=== PATIENT | male | born 1970 | race Caucasian/White ===

== ENCOUNTER 2020-07-18 10:46 | Outpatient (CLI) | payer OTHER, SELFPAY | END 2020-07-18 10:47 | disposition home or self-care (01) | LOC: ANHCOVIDVC 10:46 | PROVIDERS: PCP Internal Medicine | DX: Z23 Encounter for immunization (principal) | CPT/HCPCS: 0001A; 91300 ==

== ENCOUNTER 2020-08-08 10:45 | Outpatient (CLI) | payer OTHER, SELFPAY | END 2020-08-08 10:46 | disposition home or self-care (01) | LOC: ANHCOVIDVC 10:45 | PROVIDERS: PCP Internal Medicine | DX: Z23 Encounter for immunization (principal) | CPT/HCPCS: 0002A; 91300 ==

== ENCOUNTER 2020-10-01 13:53 | Outpatient (CLI) | payer OTHER, SELFPAY ==
--- NOTE | ~2020-10-01 | XR_ITS ---
XR hip LT min 2V DATE: 10/01/2020 14:19 INDICATION: Left hip pain. Rheumatoid arthritis. TECHNIQUE: AP, lateral and crosstable lateral views of left hip COMPARISON: None FINDINGS: No fracture, dislocation, avascular necrosis or bone destruction. Left hip joint space appe ars well preserved. IMPRESSION: Negative Reviewed, dictated and finalized at location B. IMPRESSION: Negative
== END 2020-10-01 13:54 | disposition home or self-care (01) ==
PROVIDERS: PCP Internal Medicine; Visit Provider Internal Medicine
DX: M25.552 Pain in left hip (principal)
CPT/HCPCS: 73502

== ENCOUNTER 2020-11-06 09:13 | Outpatient (CLI) | payer OTHER, SELFPAY ==
--- NOTE | ~2020-11-06 | XR_ITS ---
EXAMINATION: XR thoracic spine min 4V DATE: 11/06/2020 09:31 INDICATION: Thoracic back pain TECHNIQUE: Anteroposterior, lateral in neutral, flexion and extension, and bilateral oblique views of the thoracic spine were obtained. COMPARISON: 07/10/2018 FINDINGS: There are changes of interval posterior fusion from T8 through T11. Bone alignment is jhoan l. There is no fracture. There is mild loss of intervertebral disc space height throughout the thorac ic spine. There are bridging osteophytes at multiple levels in the spine, consistent with diffuse idi opathic skeletal hyperostosis (DISH). IMPRESSION: 1. Mild thoracic spondylosis without acute findings. Reviewed, dictated and finalized at location A.
== END 2020-11-06 09:14 | disposition home or self-care (01) ==
LOC: ANHIMG 09:15
PROVIDERS: PCP Internal Medicine; Visit Provider Internal Medicine Rheumatology
DX: M47.814 Spondylosis without myelopathy or radiculopathy, thoracic region (principal)
CPT/HCPCS: 72074

== ENCOUNTER 2021-03-26 11:26 | Outpatient (CLI) | payer OTHER, SELFPAY ==
--- NOTE | 2021-04-13 13:34 | WPDHOMESLEEP ---
Sleep Study - Home Unattended Date of Study: 03/26/21 <Reshma Chamberlain DO - Last Filed: 04/13/21 13:50> Ordering Provider: Glenys Alcazar MD <Reshma Chamberlain, DO - Last Filed: 04/13/21 13:50> Interpreting Provider: Reshma Chamberlain DO <Reshma Chamberlain, DO - Last Filed: 04/13/21 13:50> Home Sleep Study Type: Watch PAT <Reshma Chamberlain, DO - Last Filed: 04/13/21 13:50> Height: 1.83 m <Reshma Chamberlain DO - Last Filed: 04/13/21 13:50> Weight: 99.79 kg <Reshma Chamberlain DO - Last Filed: 04/13/21 13:50> Body Mass Index: 29.8 <Reshma Chamberlain DO - Last Filed: 04/13/21 13:50> Neck Circumference (inches): 17.5 <Reshma Chamberlain DO - Last Filed: 04/13/21 13:50> [place]: 7 <Reshma Chamberlain DO - Last Filed: 04/13/21 13:50> Reason for Sleep Study Witnessed apneic events while sleeping <Reshma Chamberlain DO - Last Filed: 04/13/21 13:50> Sleep History The patient is a 50-year-old male with seropositive rheumatoid arthritis, diffuse idiopathic skeletal hyperostosis, bipolar type 2, ADHD, anxiety, as, hypertension, diabetes, hyperlipidemia and previously diagnosed GEOFF that had a home study ordered by his physician due to witnessed apneic episodes. The the patient frequently awakens from sleep short of breath. He denies waking at night with heartburn, belching or cough. He constantly snores and is frequently loud enough others complain. He occasionally has trouble sleeping when he has a cold. He rarely wakes up gasping for throughout the night. He frequently has breathing problems at night observed by others. He occasionally sweats excessively at night. He denies heart palpitations throughout the night. He frequently falls asleep during the day but never while driving. He denies his cataplexy. He rarely has trouble at school or work due to sleepiness. He rarely feels unable to move when waking up her falling asleep. He rarely experiences vivid dreamlike scenes upon awakening falling asleep. He rarely has nightmares. He occasionally remembers his dreams. He constantly has thoughts racing through his mind. He frequently feels sad or depressed. He constantly has anxiety. He rarely notices parts of his body jerk. He rarely kicks during the night. He frequently experiences crawling and aching feelings in his legs as well as leg pain during the night. He constantly grinds his teeth during sleep and never awakens with jaw pain in the morning. He is constantly bothered by pain during the day and awakened by pain during the night. He constantly wakes up feeling stiff in the morning with sore and achy muscles. He goes to bed at 8:30 p.m. on weekdays and 9:30 p.m. on weekends. It takes him 15-20 minutes to fall asleep. He wakes up at 6-8 times throughout the night. When he awakens, he will try to go back to sleep. He can fall back asleep within 10-15 minutes. He wakes up at 6:00 a.m. on weekdays and 7:00 a.m. on weekends. He typically gets 3-5 hours of sleep per night he will stay in bed for 5-10 minutes after awakening in the morning. He currently lives with his and 2 kids. His work does not require split chills the rotating shifts. He does not consume any caffeinated beverages within 2 hours of bedtime. He does not engage in physical exercise before bedtime. He will read watch television before falling asleep. He does take naps in the afternoon and the evening but they are not refreshing. He does consume caffeinated tea throughout the day. He denies tobacco and alcohol use. he states that he does use recreational drugs but the type of drug was listed. <Reshma Chamberlain DO - Last Filed: 04/13/21 13:50> [facility] Past Medical History Medical History: Medical History Anxiety Arthritis Asthma Attention deficit disorder Back pain Bipolar affective, depress, part remis
[2021-04-13 13:50] VITALS: BMI 29.8
== END 2021-03-30 12:19 | disposition home or self-care (01) ==
LOC: ANHCSM 11:26
PROVIDERS: PCP Internal Medicine; Visit Provider Internal Medicine Rheumatology
DX: G47.9 Sleep disorder, unspecified (principal); G47.33 Obstructive sleep apnea (adult) (pediatric)
CPT/HCPCS: 95800

== ENCOUNTER 2021-04-23 07:40 | Outpatient (CLI) | payer OTHER, SELFPAY ==
--- NOTE | 2021-05-12 14:20 | WPDSLEEPSTUD ---
Sleep Study Ordering Provider: Jonnathan Diaz DO <Reshma Chamberlain DO - Last Filed: 05/12/21 14:42> Interpreting Physician: Reshma Chamberlain DO <Reshma Chamberlain DO - Last Filed: 05/12/21 14:42> Reason for Sleep Study The patient was previously diagnosed with GEOFF and has been on CPAP in the past. He had a home study done on March 26, 2021 that showed an AHI 1.3 and an RDI of 7.7. The patient was recommended to have an in-lab study for further evaluation. <Reshma Chamberlain DO - Last Filed: 05/12/21 14:42> Sleep History The patient is a 50-year-old male with seropositive rheumatoid arthritis, diffuse idiopathic skeletal hyperostosis, bipolar type 2, ADHD, anxiety, hypertension, diabetes, hyperlipidemia and previously diagnosed GEOFF that had a home study ordered by his physician due to witnessed apneic episodes. The the patient frequently awakens from sleep short of breath. He denies waking at night with heartburn, belching or cough. He constantly snores and is frequently loud enough others complain. He occasionally has trouble sleeping when he has a cold. He rarely wakes up gasping for throughout the night. He frequently has breathing problems at night observed by others. He occasionally sweats excessively at night. He denies heart palpitations throughout the night. He frequently falls asleep during the day but never while driving. He denies his cataplexy. He rarely has trouble at school or work due to sleepiness. He rarely feels unable to move when waking up her falling asleep. He rarely experiences vivid dreamlike scenes upon awakening falling asleep. He rarely has nightmares. He occasionally remembers his dreams. He constantly has thoughts racing through his mind. He frequently feels sad or depressed. He constantly has anxiety. He rarely notices parts of his body jerk. He rarely kicks during the night. He frequently experiences crawling and aching feelings in his legs as well as leg pain during the night. He constantly grinds his teeth during sleep and never awakens with jaw pain in the morning. He is constantly bothered by pain during the day and awakened by pain during the night. He constantly wakes up feeling stiff in the morning with sore and achy muscles. He goes to bed at 8:30 p.m. on weekdays and 9:30 p.m. on weekends. It takes him 15-20 minutes to fall asleep. He wakes up at 6-8 times throughout the night. When he awakens, he will try to go back to sleep. He can fall back asleep within 10-15 minutes. He wakes up at 6:00 a.m. on weekdays and 7:00 a.m. on weekends. He typically gets 3-5 hours of sleep per night he will stay in bed for 5-10 minutes after awakening in the morning. He currently lives with his and 2 kids. His work does not require split chills the rotating shifts. He does not consume any caffeinated beverages within 2 hours of bedtime. He does not engage in physical exercise before bedtime. He will read watch television before falling asleep. He does take naps in the afternoon and the evening but they are not refreshing. He does consume caffeinated tea throughout the day. He denies tobacco and alcohol use. he states that he does use recreational drugs but the type of drug was listed. <Reshma Chamberlain DO - Last Filed: 05/12/21 14:42> [facility] Past Medical History Medical History: Medical History Anxiety Arthritis Asthma Attention deficit disorder Back pain Bipolar affective, depress, part remis Bone cyst Depression Diabetes Diabetes Essential (primary) hypertension Fibromyalgia Generalized osteoarthritis of multiple sites GERD (gastroesophageal reflux disease) H/O tuberculosis H/O: HTN (hypertension) Hyperlipidemia associated with type 2 diabetes mellitus Inflammatory arthritis Irritable bowel syndrome [place] use Metabolic syndrome Mild persistent asthma without complication Krystina
== END 2021-04-24 06:04 | disposition home or self-care (01) ==
LOC: ANHCSM 07:40
PROVIDERS: PCP Internal Medicine; Visit Provider Internal Medicine
DX: G47.33 Obstructive sleep apnea (adult) (pediatric) (principal); G25.81 Restless legs syndrome
CPT/HCPCS: 95810

== ENCOUNTER 2021-06-08 00:13 | Day surgery (SDC) | payer OTHER, SELFPAY ==
[2021-05-26 13:12] VITALS: BMI 29.9
[2021-06-08 11:40] VITALS: BP 117/89; PULSE 112; RESP 18; TEMP 37.1; O2SAT 98; BMI 30.7
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
[2021-06-08] MEDS: LACTATED RINGERS 1,000 ML 150 ML IV CONT (12:00)
[2021-06-08 12:01] LABS: Glucose Point of Care 120 mg/dl (65-105)
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
[2021-06-08 12:46] VITALS: BP 141/93; PULSE 92; RESP 19; O2SAT 98
[2021-06-08 12:56] VITALS: BP 107/73; PULSE 82; RESP 24; O2SAT 99
[2021-06-08 13:06] VITALS: BP 110/76; PULSE 82; RESP 22; O2SAT 100
== END 2021-06-08 13:14 | disposition home or self-care (01) ==
PROVIDERS: PCP Internal Medicine; Visit Provider Internal Medicine Gastroenterology
PROC: 0DJD8ZZ Inspection of Lower Intestinal Tract, Via Natural or Artificial Opening Endoscopic (ICD-10-PCS; CPT 45378; principal; 2021-06-08 13:00)
DX: Z12.11 Encounter for screening for malignant neoplasm of colon (principal); D12.3 Benign neoplasm of transverse colon; K57.30 Diverticulosis of large intestine without perforation or abscess without bleeding; K64.8 Other hemorrhoids; F41.9 Anxiety disorder, unspecified; M19.90 Unspecified osteoarthritis, unspecified site; F31.9 Bipolar disorder, unspecified; E11.9 Type 2 diabetes mellitus without complications; F41.8 Other specified anxiety disorders; I10 Essential (primary) hypertension; M79.7 Fibromyalgia; K21.9 Gastro-esophageal reflux disease without esophagitis; J45.30 Mild persistent asthma, uncomplicated; G47.33 Obstructive sleep apnea (adult) (pediatric); G25.81 Restless legs syndrome; Z98.1 Arthrodesis status; F12.90 Cannabis use, unspecified, uncomplicated; Z79.84 Long term (current) use of oral hypoglycemic drugs; E66.9 Obesity, unspecified; Z68.30 Body mass index [BMI] 30.0-30.9, adult
CPT/HCPCS: 45385; 82948; 88305; J2704; J7120

== ENCOUNTER 2021-08-05 09:50 | Outpatient (CLI) | payer OTHER, SELFPAY ==
--- NOTE | ~2021-08-05 | XR_ITS ---
EXAMINATION: XR knee RT 3V DATE: 08/05/2021 10:10 INDICATION: Right knee pain TECHNIQUE: Three views of the right knee were obtained. COMPARISON: 08/22/2017 FINDINGS: Alignment is normal. No fracture or osteochondral lesion. There is mild tricompartmental os teoarthritis characterized by tiny marginal osteophytes. There is a small knee joint effusion. Soft t issues are unremarkable. IMPRESSION: 1. Osteoarthritis and small joint effusion without acute osseous abnormality. Reviewed, dictated and finalized at location B.
== END 2021-08-05 09:51 | disposition home or self-care (01) ==
LOC: ANHIMG 09:54
PROVIDERS: PCP Internal Medicine; Visit Provider Physician Assistant
DX: M17.11 Unilateral primary osteoarthritis, right knee (principal)
CPT/HCPCS: 73562

== ENCOUNTER 2022-01-12 00:38 | Day surgery (SDC) | payer OTHER, SELFPAY ==
[2021-12-30 09:07] VITALS: BMI 29.6
[2022-01-12 09:50] VITALS: BP 114/75; PULSE 79; RESP 20; TEMP 36.5; O2SAT 99
[2022-01-12] MEDS: LACTATED RINGERS 1,000 ML 150 ML IV CONT (09:54)
[2022-01-12 10:08] LABS: Glucose Point of Care 96 mg/dl (65-105)
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
[2022-01-12 11:43] VITALS: BP 107/72; PULSE 72; RESP 22; O2SAT 99
[2022-01-12 11:53] VITALS: BP 114/71; PULSE 76; RESP 21; O2SAT 96
[2022-01-12 12:03] VITALS: BP 109/76; PULSE 73; RESP 25; O2SAT 97
== END 2022-01-12 12:27 | disposition home or self-care (01) ==
PROVIDERS: PCP Internal Medicine; Visit Provider Internal Medicine Gastroenterology
PROC: 0DJ08ZZ Inspection of Upper Intestinal Tract, Via Natural or Artificial Opening Endoscopic (ICD-10-PCS; CPT 43235; principal; 2022-01-12 10:30)
DX: R11.0 Nausea (principal); R63.4 Abnormal weight loss; Z79.84 Long term (current) use of oral hypoglycemic drugs; M19.90 Unspecified osteoarthritis, unspecified site; F41.9 Anxiety disorder, unspecified; J45.909 Unspecified asthma, uncomplicated; F98.8 Other specified behavioral and emotional disorders with onset usually occurring in childhood and adolescence; I10 Essential (primary) hypertension; M79.7 Fibromyalgia; K58.9 Irritable bowel syndrome, unspecified; F31.9 Bipolar disorder, unspecified; E11.9 Type 2 diabetes mellitus without complications; J45.20 Mild intermittent asthma, uncomplicated; G47.33 Obstructive sleep apnea (adult) (pediatric); K21.9 Gastro-esophageal reflux disease without esophagitis; E78.5 Hyperlipidemia, unspecified; Z90.49 Acquired absence of other specified parts of digestive tract; F12.90 Cannabis use, unspecified, uncomplicated; E66.9 Obesity, unspecified; Z68.30 Body mass index [BMI] 30.0-30.9, adult; Z86.16 Personal history of COVID-19; G25.81 Restless legs syndrome
CPT/HCPCS: 43239; 82948; 87081; J2704; J7120

== ENCOUNTER → 2023-03-02 14:11 | Outpatient (CLI) | payer OTHER, SELFPAY ==
--- NOTE | ~2023-03-02 | MR_ITS ---
EXAMINATION: MR knee RT wo con DATE: 03/02/2023 14:44 INDICATION: 6-7 months of anterior right knee pain. TECHNIQUE: Magnetic resonance imaging (MRI) of the right knee was performed without intravenous contr ast. Sequences included coronal PD-weighted FSE, coronal PD-weighted FS FSE, sagittal T2-weighted FS E, sagittal PD-weighted FS FSE and axial PD weighted fat saturated FSE. COMPARISON: None. FINDINGS: Medial compartment: Complex tear at the lateral side of the posterior horn of the medial meniscus. There is suggestion of an additional longitudinal horizontal tear plane at the meniscal body. There is chondral surface reg ularity along the anterior weightbearing medial femoral condyle. There is linear fluid signal consist ent with a blisterlike delamination at the anteriormost weightbearing medial femoral condyle with pro minent underlying subarticular edema-like signal change. Lateral compartment: Lateral meniscus is normal. Chondral ulceration along the medial side of the lateral tibial plateau a long the intercondylar eminence with additional small focus of underlying subarticular edema-like sig nal change. Remaining cartilage the lateral compartment is normal. Patellofemoral compartment: Resolved hemorrhagic deep chondral fissuring with underlying edema-like and tiny cystlike changes ext ending across the central aspect of the lateral patellar facet. Small region of partial-thickness cho ndral ulceration and deep chondral fissuring at the inferolateral aspect of the medial trochlea with underlying cortical irregularity and minimal subarticular edema-like signal change. Ligaments and tendons: Anterior and posterior cruciate ligaments are normal. The medial collateral ligament and fibular moreno ateral ligament complex are normal. The extensor mechanism is normal. The visualized medial and later al hamstring tendons as well as the iliotibial band are normal. Fluid: Minimal right knee joint effusion at the suprapatellar pouch. Small Carey's cyst with extension of an additional small component of the cyst cyst distally along the semimembranosus tendon. No loose oste ochondral bodies identified. Osseous/other: Bone alignment is normal. No fracture or pathologic marrow replacing process. No fracture or patholog ic marrow replacing process. IMPRESSION: 1. Complex tear at the lateral posterior horn of the medial meniscus with suggestion of additional ho rizontal tear plane at the meniscal body. 2. Mild tricompartmental osteoarthritis with regions of high-grade chondromalacia in all 3 compartmen ts and small region of blisterlike delamination at the bone chondral interface at the anteriormost we ightbearing medial femoral condyle. 3. Small Carey's cyst. Reviewed, dictated and finalized at location A. IMPRESSION: 1. Complex tear at the lateral posterior horn of the medial meniscus with sugge stion of additional horizontal tear plane at the meniscal body. 2. Mild tricompartmental osteoarthritis with regions of high-grade chondromalac ia in all 3 compartments and small region of blisterlike delamination at the blanca ne chondral interface at the anteriormost weightbearing medial femoral condyle. 3. Small Carey's cyst.
== END ==
PROVIDERS: PCP Orthopaedic Surgery; Visit Provider Orthopaedic Surgery
DX: S83.271A Complex tear of lateral meniscus, current injury, right knee, initial encounter (principal); M17.11 Unilateral primary osteoarthritis, right knee; M94.261 Chondromalacia, right knee; M71.21 Synovial cyst of popliteal space [Baker], right knee
CPT/HCPCS: 73721

== ENCOUNTER 2023-04-06 08:49 | Outpatient (CLI) | payer OTHER, SELFPAY ==
--- NOTE | 2023-04-06 08:58 | ECG_ITS ---
Measurements Intervals [place] Rate: 78 P: 31 MI: 157 QRS: -14 QRSD: 105 T: 30 QT: 346 QTc: 396 Interpretive Statements SINUS RHYTHM BORDERLINE R WAVE PROGRESSION, ANTERIOR LEADS BASELINE ARTIFACT- I, III, AVR, AVL, AVF BORDERLINE ECG NO PREVIOUS ECG AVAILABLE FOR COMPARISON Electronically Signed On 04-06-2023 10:38:45 [employer] ENGINEER by Андрей Al D.O.
[2023-04-06 11:01] LABS: Lithium 0.4 mmol/L (0.6-1.2)
[2023-04-06 11:10] LABS: Valproic Acid 20.1 ug/mL (50-120)
== END 2023-04-06 08:50 | disposition home or self-care (01) ==
LOC: ANHSURGERY 08:52
PROVIDERS: Anesthesiology; PCP Internal Medicine; Visit Provider Orthopaedic Surgery
DX: E11.9 Type 2 diabetes mellitus without complications (principal); F31.75 Bipolar disorder, in partial remission, most recent episode depressed; Z79.899 Other long term (current) drug therapy; Z01.818 Encounter for other preprocedural examination; R94.31 Abnormal electrocardiogram [ECG] [EKG]
CPT/HCPCS: 36415; 80164; 80178; 93005

== ENCOUNTER 2023-04-13 01:00 | Day surgery (SDC) | payer OTHER, SELFPAY ==
[2023-04-04 12:56] VITALS: BMI 32.8
--- NOTE | 2023-04-04 13:01 | PC.NURSE ---
Report to the Outpatient Waiting Room, entrance under the green pavilion located off [facility], at time 10:00 on date 04/13/23. Planned Procedure Time: 12:00. Time changes happen often and if your time is changed the preop area will call you the afternoon before. - You and your visitor will be asked to self-screen and do not enter if you have any COVID symptoms. - A mask is optional within the hospital at this time. Patients may have clear liquids (water, carbonated beverages, clear teas, apple juice) until 3 hours prior to surgery with a maximum of 20 ounces. - No food from midnight until time of surgery Take the following medications with a SIP of water the morning of surgery: LITHIUM, SERTRALINE DO NOT STOP ANY OF YOUR OTHER PRESCRIPTION MEDICATIONS PRIOR TO SURGERY ?EXCEPT THE FOLLOWING Medications to discontinue per physician: VITAMINS/SUPPLEMENTS Date to take last dose: 04/09/23 Please no make-up, nail chinese, hairspray, perfume, deodorant, or body powder the day of surgery. No jewelry (including any body piercings) or valuables the day of surgery, leave them at home. Please take a shower or bath the night before, or the morning of, surgery with an antibacterial soap. Wear comfortable, loose fitting clothing. - Jewelry must be removed prior to entering the operating room. Rings and piercings that are not removed may be cut off. - The hospital will not accept responsibility for valuables. - Please leave all valuables, including medications, at home the day of surgery. If you are going home after surgery, a licensed compressed air pile driver operator must drive you home. - NO public transportation without another adult if you receive anesthesia. - We recommend that an adult stay with you for 24 hours following discharge. - We also recommend that you do not drive, make important decision, drink alcoholic beverages, or take any drugs that were not prescribed by your health care provider for at least 24 hours after your discharge time. Follow any additional instructions given to you from your surgeon. If you or anyone in your household have experienced Covid symptoms in the past week, please notify your surgeon or the nurse liaison at the phone number below for possible testing. Telephone instructions given to PT - SUSANNE SANTANA and asked if any additional questions and then verbalized understanding. Patient advised to call surgeon office or pre surgery nurse liaison [phone] if any additional questions.
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
--- NOTE | 2023-04-13 07:13 | WPDHPUPDATE1 ---
History and Physical Update Update Date/Time: 04/13/23 07:13 History and Physical has been reviewed, including an updated exam of the patient. There are NO changes in the patient's condition. Risks, benefits, and alternatives have been discussed and questions answered. Patient agrees to proceed with procedure.
[2023-04-13] MEDS: ACETAMINOPHEN 500 MG TABLET 1000 MG PO (08:01)
[2023-04-13] MEDS: CELECOXIB 200 MG CAPSULE PO (08:01)
[2023-04-13] MEDS: LACTATED RINGERS 1,000 ML 30 ML IV CONT (08:15)
[2023-04-13 08:20] VITALS: BP 118/68; PULSE 81; RESP 16; TEMP 36.3; O2SAT 98
[2023-04-13 08:20] LABS: Glucose Point of Care 101 mg/dl (65-105)
[2023-04-13] MEDS: ceFAZolin 2 GM/D5W 50 ML 2 GM/50 ML BAG IVPB (09:34)
[2023-04-13] MEDS: BUPivacaine HCL 0.5% 10 ML AMP 30 ML INFILTRATE (09:58)
[2023-04-13 10:33] VITALS: BP 129/87; PULSE 75; RESP 10; TEMP 36.7; O2SAT 100
--- NOTE | 2023-04-13 10:35 | W.PM.PROC2 ---
Procedure Note - Detailed Date of Procedure 04/13/23 Pre-op Diagnosis right medial meniscus tear Post-op Diagnosis Same Procedure Performed RIGHT KNEE SCOPE PARTIAL MEDIAL MENISCECTOMY, ABRASION ARTHROPLASTY/MICRO FRACTURE AND MAJOR SYNOVECTOMY Surgeon Lalo Irizarry MD Anesthesia General Description of Procedure PATIENT WAS TAKEN TO THE OR. RIGHT LEG WAS PREPPED AND DRAPED STERILE. TROCARS WERE PLACED IN THE USUAL FASHION. CAMERA WAS INTRODUCED. THERE WAS CHONDROMALACIA TO THE PATELLA FEMORAL JOINT. THERE WAS A LOT OF SYNOVITIS IN ALL COMPARTMENTS. THE MEDIAL COMPARTMENT SHOWED CHONDROMALACIA TO THE MEDIAL FEMORAL CONDYLE. A SHAVER WAS USED TO PREFORM A CHONDROPLASTY. THERE WAS AN AREA OF FULL THICKNESS DEFECT.. AND ABRASION ARTHROPLASTY/MICRO FRACTURE TECHNIQUE WS PREFORMED AND THERE WAS GOOD BLEEDING BONE COMING FROM THE SITES. THERE WAS A COMPLEX MEDIAL MENISCUS TEAR TO THE MENISCUS ROOT AND POSTERIOR HORN. THIS WAS RESECTED TO A SMOOTHE BASE . THE ACL WAS INTACT. THE LATERAL MENISCUS WAS NOT TORN. THE LATERAL COMPARTMENT HAD GRADE NO CHONDROMALACIA. A SYNOVECTOMY WAS PREFORMED. THE PATELLO FEMORAL JOINT UNDERWENT CHONDROPLASTY. THERE WAS GRADE 2 CHONDROMALACIA IN PART OF THE PATELLA. SYNOVECTOMY WAS PREFORMED IN THE SUPERIOR MEDIAL COMPARTMENT. THE WOUNDS WERE APPROXIMATED WITH 4.0 NYLON. STERILE DRESSING WAS APPLIED. PATIENT WAS EXTUBATED. Estimated Blood Loss 10 Complications No immediate complications Condition Stable Disposition PACU
[2023-04-13 10:47] VITALS: BP 126/76; PULSE 77; RESP 15; O2SAT 100
[2023-04-13 10:53] LABS: Glucose Point of Care 101 mg/dl (65-105)
[2023-04-13 11:00] VITALS: BP 125/80; PULSE 74; RESP 15; O2SAT 98
[2023-04-13 11:10] VITALS: BP 117/77; PULSE 79; RESP 18
[2023-04-13 11:40] VITALS: BP 126/77; PULSE 75; RESP 18
== END 2023-04-13 12:00 | disposition home or self-care (01) ==
PROVIDERS: PCP Internal Medicine; Visit Provider Orthopaedic Surgery
PROC: (CPT 29870; principal; 2023-04-13 09:00)
DX: S83.231A Complex tear of medial meniscus, current injury, right knee, initial encounter (principal); M94.261 Chondromalacia, right knee; M65.9 Synovitis and tenosynovitis, unspecified; I10 Essential (primary) hypertension; E11.9 Type 2 diabetes mellitus without complications; F41.9 Anxiety disorder, unspecified; K21.9 Gastro-esophageal reflux disease without esophagitis; E78.5 Hyperlipidemia, unspecified; K58.9 Irritable bowel syndrome, unspecified; J45.909 Unspecified asthma, uncomplicated; F98.8 Other specified behavioral and emotional disorders with onset usually occurring in childhood and adolescence; F31.75 Bipolar disorder, in partial remission, most recent episode depressed; E88.810 Metabolic syndrome; G47.33 Obstructive sleep apnea (adult) (pediatric); F43.12 Post-traumatic stress disorder, chronic; F99 Mental disorder, not otherwise specified; G25.81 Restless legs syndrome; F12.90 Cannabis use, unspecified, uncomplicated; E66.9 Obesity, unspecified; Z68.31 Body mass index [BMI] 31.0-31.9, adult; Z90.49 Acquired absence of other specified parts of digestive tract; Z79.85 Long-term (current) use of injectable non-insulin antidiabetic drugs; Z79.84 Long term (current) use of oral hypoglycemic drugs; Z79.51 Long term (current) use of inhaled steroids; Z79.891 Long term (current) use of opiate analgesic; Z82.49 Family history of ischemic heart disease and other diseases of the circulatory system; X58.XXXA Exposure to other specified factors, initial encounter
CPT/HCPCS: 29881; 29879; 29876; 36415; 80164; 80178; 82948; 93005; A9270; J0690; J1100; J1170; J2250; J2405; J2704; J3010; J7120

== ENCOUNTER 2023-08-18 13:09 | Outpatient (CLI) | payer BC, SELFPAY ==
--- NOTE | ~2023-08-18 | XR_ITS ---
EXAMINATION: XR TMJ BI DATE: 08/18/2023 13:39 INDICATION: Pain of the bilateral temporomandibular joints. TECHNIQUE: 4 views of the temporomandibular joints including open-mouth and closed mouth views were o btained. COMPARISON: None. FINDINGS: Bone alignment is normal. There is normal anterior translation of mandibular condyles in th e open-mouth position. The mandibular condyles are normal in morphology. Joint spaces are normal. IMPRESSION: 1. Normal temporomandibular joints. Reviewed, dictated and finalized at location A.
--- NOTE | ~2023-08-18 | XR_ITS ---
XR cervical spine 4-5V DATE: 08/18/2023 13:39 INDICATION: Neck pain, base of skull. No injury. TECHNIQUE: Flexion and extension and neutral lateral views. AP and open-mouth views. COMPARISON: None FINDINGS: C1 and C2 are normally aligned and the odontoid process is intact. No fracture or dislocation or locked facet or prevertebral soft tissue swelling. No instability on fl exion or extension is evident. Cervical interspaces are relatively preserved. There is mild degenerative spurring of the vertebral b odies and mild spurring at the mid and lower cervical uncovertebral joints. IMPRESSION: Mild degenerative change Reviewed, dictated and finalized at location B. IMPRESSION: Mild degenerative change
== END 2023-08-18 13:10 | disposition home or self-care (01) ==
LOC: ANHIMG 13:13
PROVIDERS: PCP Physician Assistant; Visit Provider Physician Assistant
DX: M26.609 Unspecified temporomandibular joint disorder, unspecified side (principal); M54.2 Cervicalgia
CPT/HCPCS: 70330; 72050

== ENCOUNTER 2024-02-23 11:32 | Outpatient (CLI) | payer BC, SELFPAY ==
--- NOTE | ~2024-02-23 | XR_ITS ---
Clinical Indication: Abnormal weight loss PA and lateral views of the chest: Comparison: 07/10/2018 Findings: The lungs are clear, without evidence of focal consolidation or pleural effusion. Cardiome diastinal silhouette is within normal limits. Presumed vagal neurostimulator present. Thoracolumbar s roberta fixation hardware present. Impression: Clear lungs. Additional findings, as above. Reviewed, dictated and finalized at location . Impression: Clear lungs. Additional findings, as above.
== END 2024-02-23 11:33 | disposition home or self-care (01) ==
LOC: ANHIMG 11:34
PROVIDERS: PCP Internal Medicine; Visit Provider Internal Medicine
DX: R63.4 Abnormal weight loss (principal); Z98.1 Arthrodesis status; Z96.82 Presence of neurostimulator
CPT/HCPCS: 71046

== ENCOUNTER 2024-10-04 13:01 | Outpatient (CLI) | payer BC, SELFPAY ==
--- NOTE | ~2024-10-04 | XR_ITS ---
EXAMINATION: XR chest 2V 10/04/2024 13:12 INDICATION: Osteoarthritis. Long-term drug therapy. PROCEDURE: 2 view chest COMPARISON: Comparison to multiple prior studies sequentially, with oldest reviewed study dated 05/2009. FINDINGS: The lungs are clear. The cardiomediastinal silhouette is within normal limits. There are no pleural effusions. There is no pneumothorax suspected. Posterior spinal fusion present in the mi d and lower thoracic spine. There is diffuse idiopathic skeletal hyperostosis (DISH) of the thoracic spine. IMPRESSION: 1: NO ACUTE CARDIOPULMONARY DISEASE. Reviewed, dictated and finalized at location B.
== END 2024-10-04 13:02 | disposition home or self-care (01) ==
LOC: MICIMG 13:03
PROVIDERS: PCP Internal Medicine; Visit Provider Internal Medicine Rheumatology
DX: M19.90 Unspecified osteoarthritis, unspecified site (principal); Z79.899 Other long term (current) drug therapy
CPT/HCPCS: 71046

== ENCOUNTER 2025-02-07 10:22 | Outpatient (CLI) | payer BC, SELFPAY ==
--- NOTE | 2025-02-07 10:36 | ECG_ITS ---
Test Date: 2025-02-07 10:51:02 Measurements Intervals [place] Rate: 69 P: 55 WV: 187 QRS: -14 QRSD: 117 T: 54 QT: 374 QTc: 403 Interpretive Statements SINUS RHYTHM NORMAL ELECTROCARDIOGRAM No previous ECG available for comparison Electronically Signed On 02-07-2025 16:32:23 CDT by Sharad Laurent M.D.
[2025-02-07 10:40] LABS: Hematocrit 46.6 % (42.0-52.0); Hemoglobin 15.5 g/dL (14.0-18.0); Immature Granulocyte Percent A 0.4 % (0-0.5); Lymphocytes Absolute Auto 1.43 K/mm3 (0.9-3.2); Mean Corpuscular HGB Conc 33.3 g/dl (32-36); Mean Corpuscular Hemoglobin 30.5 pg (26-34); Mean Corpuscular Volume 91.6 fl (80-100); Nucleated Red Blood Cells Absolute Auto 0.000 K/mm3 (0.0-0.012); Nucleated Red Blood Cells Perc 0.0 % (0.0-0.2); Platelet Count Result 257 k/mm3 (150-375); Red Blood Count 5.09 M/mm3 (4.6-6.20); White Blood Count 8.0 K/mm3 (4.5-10.0)
[2025-02-07 10:48] LABS: Add Urine Microscopic? YES; Appearance Urine Clear (Clear); Glucose Urine UA Negative (Negative); Leukocyte Esterase Ur Trace LEU/UL (Negative); Nitrate Urine Negative (Negative); Non Pathogenic Casts 0-2; Specific Grav Ur 1.006 (1.001-1.035)
[2025-02-07 11:05] LABS: Anion Gap 7 mmol/L (4-12); Blood Urea Nitrogen 14 mg/dL (9-20); Calcium 9.3 mg/dL (8.4-10.2); Carbon Dioxide 25 mmol/L (22-30); Chloride 104 mmol/L (98-107); Estimated Glomerular Filt Rate > 60; Glucose 83 mg/dL (65-110); Potassium 4.3 mmol/L (3.4-5.0); Sodium 136 mmol/L (137-145)
== END 2025-02-07 10:23 | disposition home or self-care (01) ==
LOC: ANHLAB 10:23
PROVIDERS: PCP Internal Medicine; Visit Provider Orthopaedic Surgery
DX: I10 Essential (primary) hypertension (principal); R53.83 Other fatigue; E11.9 Type 2 diabetes mellitus without complications; E11.69 Type 2 diabetes mellitus with other specified complication; E78.5 Hyperlipidemia, unspecified
CPT/HCPCS: 36415; 80048; 81001; 85025; 93005

== ENCOUNTER 2025-04-08 09:48 | Outpatient (CLI) | payer BC, SELFPAY ==
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
--- OUTSIDE RECORDS SUMMARY | 2025-04-08 11:11 | XMS_ITS | Encounter Summary ---
Author Organization [facility] Address [address] [place] [address] Phone Care Team Providers Care Repair Cameraman Name Role Phone Renee Trujillo MD Primary Care Provider [phone] Jonnathan Diaz MD Primary Care Provider [phone] Dave Power DO Primary Care Provider [phone] Encounter Details Date Type Department Care Team (Latest Contact Info) Description 12/28/2018 Orders Only [facility] Scanning, Provider Social History Tobacco Use Types Packs/Day Years Used Date Smoking Tobacco: Never Alcohol Use Standard Drinks/Week Comments No 0 (1 standard drink = 0.6 oz pur e alcohol) Sex and Gender Information Value Date Recorded Sex Assigned at Not on file 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 Gender Identity Not on file Sexual Orientation Not on file documented as of this encounter Functional Status * BP Location Answer Date of Assessment Author Left arm 12/29/2018 9:41 AM Vanessa Mcclellan CMA * BP Location Answer Date of Assessment Author Left arm 12/29/2018 9:41 AM Vanessa Mcclellan CMA documented as of this encounter Plan of Treatment Not on file documented as of this encounter Procedures Procedure Name Priority Date/Time Associated Diagnosis Comments SLEEP LAB/STUDY - RESULT 12/28/2018 documented in this encounter Results * SLEEP LAB/STUDY - RESULT (12/28/2018) us Provider Scanning Final Result documented in this encounter Visit Diagnoses Not on filedocumented in this encounter Care Teams Repair Cameraman Relationship Specialty Start Date End Date Renee Trujillo MD PCP - General Family Medicine 10/02/18 10/04/23 Jonnathan Diaz MD [address] [place] [address] PCP - General Internal Medicine 10/05/23 08/07/24 Dave Power DO [address] [place] [address] PCP - General Internal Medicine 08/08/24 documented as of this encounter
--- OUTSIDE RECORDS SUMMARY | 2025-04-08 11:11 | XMS_ITS | Encounter Summary ---
Author Organization [facility] Address [address] [facility] [place] [address] Care Team Providers Care Poiser Name Role Phone JannetMatthewDave Opal STRONG Primary Care Provider [phone] Encounter Details Date Type Department Care Team (Late st Contact Info) Description 03/29/2025 Orders Only [facility] - Rheumatology [address] [place] [address] Giselle Ryan MD [address] [place] [address] Undifferentiated inflammatory arthritis; Encounter for long-term (current) use of high-risk medication; Encounter for therapeutic drug monitoring Social History Tobacco Use Types Packs/Day Years Used Date Smoking Tobacco: Never Smokeless Tobacco: Never Alcohol Use Standard Drinks/Week Comments Never 0 (1 standard drink = 0.6 oz pur e alcohol) AUDIT-C Answer Date Recorded Frequency of Alcohol Consumption Never 04/04/2019 Average Number of Drinks Not on file 019 Frequency of Binge Drinking Not on file 03/17 Sex and Gender Information Value Date Recorded Sex Assigned at Male 12/08/2021 9:46 AM CDT 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 Answer Date of Assessment Author No 05/15/2019 5:18 PM Lizeth Centeno RN * Is person blind or have serious difficulty seeing? Answer Date of Assessment Author No 05/15/2019 5:18 PM Lizeth Centeno RN * Does person have serious difficulty walking/climbing stairs? Answer Date of Assessment Author No 05/15/2019 5:18 PM Lizeth Centeno RN * Does person have difficulty dressing/bathing? Answer Date of Assessment Author No 05/15/2019 5:18 PM Lizeth Centeno RN * Does person have difficulty doing errands alone? Answer Date of Assessment Author No 05/15/2019 5:18 PM Lizeth Centeno RN documented as of this encounter Mental Status * Does person have difficulty concentrating/remembering/making decisions? Answer Entry Date Author No 05/15/2019 5:18 PM Lizeth Centeno RN documented in this encounter Plan of Treatment Upcoming Encounters Date Type Department Care Team (Late st Contact Info) Description 08/05/2025 2:40 PM CDT Office Visit [facility] - [facility]ology [facility] [place] [address] Giselle Ryan MD [facility] [place] [id number] documented as of this encounter Visit Diagnoses Diagnosis Undifferentiated inflammatory arthritis Unspecified inflammatory polyarthropathy Encounter for long-term (current) use of high-risk medication Encounter for long-term (current) use of other medications Encounter for therapeutic drug monitoring documented in this encounter Additional Health Concerns Infection Onset Date Last Indicated Resolved Time Prion Disease Rule-Out 07/04/2023 07/04/2023 documented as of this encounter Care Teams Poiser Relationship Specialty Start Date End Date Dave Power DO [address] [place] [address] PCP - General Internal Medicine 05/14/24 documented as of this encounter
--- OUTSIDE RECORDS SUMMARY | 2025-04-08 11:11 | XMS_ITS | Clinical Summary ---
Author Organization [facility] Address [address] [place] [address] Care Team Providers Care Tool Crib Lead Name Role Phone Jonnathan Diaz MD Primary Care Provider [phone] Social History Tobacco Use Types Packs/Day Years Used Date Smoking Tobacco: Never Assessed Sex and Gender Information Value Date Recorded Sex Assigned at Not on file Legal Sex Male 2:36 PM CDT Gender Identity Not on file Sexual Orientation Not on file Plan of Treatment Health Maintenance Due Date Last Done Comments Colorectal Cancer Screening Colonoscopy (10 Years) 1971 Annual Physical 1974 Hepatitis C 1989 DTaP, Tdap and Td Vaccines ( 1 - Tdap) 1990 Hepatitis B Vaccines (1 of 3 - 19+ 3-dose series) 1990 Pneumococcal Vaccine: 50+ Years (1 of 1 - PCV) 2021 Zoster Vaccines (1 of 2) 2021 COVID-19 Vaccine ( - 2024-2 6 season) 2025 Influenza Adult (#1) 2025 03/15/2019, 02/17/2016 Hepatitis A Vaccines Aged Out No long er eligible based on patient's age to complete this topic Meningococcal B Vaccine Aged Out No l onger eligible based on patient's age to complete this topic Meningococcal Vaccine Aged Out No joo tj eligible based on patient's age to complete this topic RSV Immunizations Under 20 Months Aged Out No longer eligible b ased on patient's age to complete this topic Insurance [facility] Care Teams Tool Crib Lead Relationship Specialty Start Date End Date Jonnathan Diaz MD [address] [place] [address] PCP - General INTERNAL MEDICINE 03/03/20
--- OUTSIDE RECORDS SUMMARY | 2025-04-08 11:11 | XMS_ITS | Clinical Summary ---
Author Organization [facility] Address [address] [place] [address] Care Team Providers Care Non Profit Financial Controller Name Role Phone Dave Power DO Primary Care Provider [phone] Allergies Active Allergy Reactions Criticality Noted Date Comments Amoxicillin-Pot Clavulanate Diarrhea,Anthony sea & Vomiting Low Iodinated Contrast Media Iodine Pregabalin Mental status changes Low 10/02/2018 Testosterone Rash Medium 10/02/2018 Medications pravastatin (PRAVACHOL) 40 mg tablet Take 1 tablet (40 mg total) by mouth daily Active lithium 150 mg capsule Take 1 capsule (150 mg total) by mouth daily before breakfast Active omeprazole (PriLOSEC) 20 mg capsule Take 1 capsule (20 mg total) by mouth daily Active lisinopril (PRINIVIL,ZESTRIL ) 40 mg tablet Take 1 tablet (40 mg total) by mouth daily Active lithium (lithium) 300 mg tablet/capsule Take 1 tablet/capsule (300 mg total) by mouth nightly Active sertraline (ZOLOFT) 100 mg tablet Take 1 tablet (100 mg total) by mouth daily Active acetaminophen ER (TYLENOL) 650 mg 8 hr tablet Take 1 tablet (650 mg total) by mouth every 8 (eight) hours as needed for pain Active albuterol (PROVENTIL,VENTOL IN) 2 mg tabletIndications :Bronchospastic Pulmonary Disease Take 1 tablet (2 mg total) by mouth 3 (three) times a day Active pyridoxine (VITAMIN B-6) 100 mg tablet Take 1 tablet (100 mg total) by mouth daily Active cholecalciferol (VITAMIN D-3) 5,000 unit tablet Take 1 tablet (5,000 Units total) by mouth daily Active venlafaxine XR (EFFEXOR-XR) 75 mg 24 hr capsule Take 1 capsule (75 mg total) by mouth daily [address] (DEPAKOTE) 250 mg EC tablet Take 1 tablet (250 mg total) by mouth 2 (two) times a day 3 Active folic acid (FOLVITE) 1 mg tablet Take 1 tablet (1 mg total) by mouth daily 3 Active metFORMIN (GLUCOPHAGE) 1,000 mg tablet Take 1 tablet (1,000 mg total) by mouth daily 3 Active risperiDONE (RisperDAL) 1 mg tablet Take 1 tablet (1 mg total) by mouth daily 3 Active gabapentin (NEURONTIN) 300 mg capsule Take 1 capsule (300 mg total) by mouth daily Active hydroxychloroquin e (PLAQUENIL) 200 mg tablet Take 2 tablets (400 mg total) by mouth daily 3 Active Ozempic 1 mg/dose (4 mg/3 mL) pen injector injection Inject 1 mg under the skin once a week 2 Active fexofenadine (GINO) 180 mg tablet Take 1 tablet (180 mg total) by mouth daily Active melatonin 10 mg tablet Take 1 tablet (10 mg total) by mouth daily Active Lactobacillus acidophilus (PROBIOTIC ORAL) Take by mouth Active multivit-minerals /folic acid (CENTRUM MULTIGUMMIES ORAL) Take by mouth Active Active Problems Problem Noted Date Diagnosed Date Obstructive sleep apnea 10/17/2018 RLS (restless legs syndrome) 10/17/2018 Psychophysiological insomnia 10/17/2018 Assessment & Plan (01/08/2019 12:00 PM CDT): This is a 48 y.o. male with [...] cognitive-behavioral therapy for insomnia (CBT- I) today. Inflamed seborrheic keratosis 09/03/2015 Capillaritis 09/03/2015 Sinusitis 07/17/2013 Hyperlipidemia 09/28/2010 Overview (08/25/2017): Description: Hyperlipidemia Hypertension 09/28/2010 Overview (08/25/2017): Description: Hypertension Shortness of breath 09/28/2010 Overview (08/25/2017): Description: Shortness Of Breath Surgical History Surgery Date Site/Laterality Comments CHOLECYSTECTOMY Cholecystectomy HAND SURGERY right hand surgery Medical History Medical History Date Comments Asthma Asthma Hx Other Medical Chronic Anxiety Hx Other Medical Sleep Apnea, CP AP Hx Other Medical Larose's Esoph marcelino Gastroesophageal reflux disease GERD History of multiple allergies yris bonilla Family History Medical History Relation Name Comments Diabetes Mother Family history of diabetes mellitus - (Added by TW Conv) Relation Name Status Comments Mother Social History Tobacco Use Types Packs/Day Years Used Date Smoking Tobacco: Never Smokeless Tobacco: Never Tobacco Cessation:Counseling Given: Not Answered Alcohol Use Standard Drinks/Week Comments No 0 (1 standard drink = 0.6 oz pur e alcohol) Sex and Gender Information Value Date Recorded Sex Assigned at Not on file 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 Gender Identity Not on file Sexual Orientation Not on file Last Filed Vital Signs Vital Sign Reading Time Taken Comments Blood Pressure 100/63 08/08/2024 8:50 AM CDT Pulse 87 08/08/2024 8:50 AM CDT Temperature 36.6 C (97.8 F) 08/08/2024 8:50 AM CDT Respiratory Rate - - Oxygen Saturation 95% 08/08/2024 8:50 AM CDT Inhaled Oxygen Concentration - - Weight 107 kg (236 lb) 08/08/2024 8:50 AM CDT Height 182.9 cm (6') 08/08/2024 8:50 AM CDT Body Mass Index 32.01 08/08/2024 8:50 AM CDT Plan of Treatment Health Maintenance Due Date Last Done Comments Colon Cancer Screening-Colonoscopy 1971 Depression Screening 1971 Hepatitis C Screening 1971 Prostate Cancer Screening-PSA 1971 Hepatitis B Screening 1989 Regular Well Visit/Exam 18-64 1989 Pneumococcal vaccine <65 (2 of 2 - PCV) 02/16/2017 02/17/2016 Covid-19 Vaccine (5 - 2024-2 6 season) 2025 02/05/2022, 03/13/2021, 08/08/2020, Additional history exists Influenza Vaccine (#1) 2025 , 02/19/2022, 02/08/2020, Additional history exists DTaP/Tdap/Td Vaccine (3 - Td or Tdap) 02/21/2028 02/20/2018, 02/13/2018 Zoster Vaccine Completed 05/18/2022, 02/19/2022 Insurance [facility] [address] [facility] Care Teams Non Profit Financial Controller Relationship Specialty Start Date End Date Dave Power DO PCP - General Internal Medicine 08/08/24
[2025-04-08 11:30] LABS: Hematocrit 48.2 % (42.0-52.0); Hemoglobin 16.0 g/dL (14.0-18.0); Immature Granulocyte Percent A 0.4 % (0-0.5); Lymphocytes Absolute Auto 1.23 K/mm3 (0.9-3.2); Mean Corpuscular HGB Conc 33.2 g/dl (32-36); Mean Corpuscular Hemoglobin 29.4 pg (26-34); Mean Corpuscular Volume 88.4 fl (80-100); Nucleated Red Blood Cells Absolute Auto 0.000 K/mm3 (0.0-0.012); Nucleated Red Blood Cells Perc 0.0 % (0.0-0.2); Platelet Count Result 252 k/mm3 (150-375); Red Blood Count 5.45 M/mm3 (4.6-6.20); White Blood Count 8.1 K/mm3 (4.5-10.0)
[2025-04-08 11:33] LABS: Add Urine Microscopic? NO; Appearance Urine Clear (Clear); Glucose Urine UA Negative (Negative); Leukocyte Esterase Ur Negative LEU/UL (Negative); Nitrate Urine Negative (Negative); Specific Grav Ur 1.004 (1.001-1.035)
[2025-04-08 11:41] LABS: INR 1.1; Partial Thromboplastin Time 28.9 Seconds (22.3-36.8); Prothrombin Time 13.8 Seconds (11.1-14.7)
[2025-04-08 11:50] LABS: Albumin Level 4.8 g/dL (3.5-5.1); Anion Gap 10 mmol/L (4-12); Blood Urea Nitrogen 15 mg/dL (9-20); Calcium 9.7 mg/dL (8.4-10.2); Carbon Dioxide 26 mmol/L (22-30); Chloride 100 mmol/L (98-107); Estimated Glomerular Filt Rate > 60; Glucose 70 mg/dL (65-110); Potassium 3.6 mmol/L (3.4-5.0); Sodium 136 mmol/L (137-145)
[2025-04-08 12:04] LABS: Lithium 1.1 mmol/L (0.6-1.2)
[2025-04-08 12:43] LABS: MRSA (PCR) NOT DETECTED (NOT DETECTE)
== END 2025-04-08 09:49 | disposition home or self-care (01) ==
LOC: ANHSURGERY 09:51
PROVIDERS: Anesthesiology; PCP Internal Medicine; Visit Provider Orthopaedic Surgery
DX: Z01.818 Encounter for other preprocedural examination (principal); M17.11 Unilateral primary osteoarthritis, right knee; Z51.81 Encounter for therapeutic drug level monitoring
CPT/HCPCS: 36415; 80048; 80178; 80307; 81003; 82040; 85025; 85610; 85730; 86850; 86900; 86901; 87641

== ENCOUNTER 2025-04-17 01:01 | Day surgery (SDC) | payer BC, SELFPAY ==
[2025-04-08 10:29] VITALS: BP 113/71; PULSE 85; RESP 16; TEMP 37.3; O2SAT 96; BMI 34.0
--- NOTE | 2025-04-08 10:46 | PC.NURSE ---
[facility] has started construction of its new state of the art ER which will open Spring 2026. With this, we anticipate parking may be a challenge for some our surgical patients and families. Parking spaces are limited but are available for all Surgical, obstetrics, and ER patients sharing this lot. If you arrive and find you are having a hard time finding a parking space, please note that we understand the challenges, please drive around the hospital and park near Hospital Entrance 1. When you enter this entrance, you can ask a volunteer to direct or take you back to the surgical waiting area to check in. We appreciate everyone?s understanding of these expected challenges while we build for your future. Report to the Outpatient Waiting Room, entrance under the green pavilion located off [address], at time __6:00AM___ on date __04/17/25___. Planned Procedure Time: __7:30AM .? Time changes happen often and if your time is changed the preop area will call you the afternoon before. - You and your visitor will be asked to self-screen and do not enter if you have any COVID symptoms. Please call surgeon if you need to reschedule. - A mask is optional within the hospital at this time. Patients may have clear liquids (water, carbonated beverages, clear teas, apple juice) until 3 hours prior to surgery (4:30AM) with a maximum of 20 ounces. - No food from midnight until time of surgery and no smoking, or chewing tobacco (or any form of nicotine). No chewing gum, candy or mints. Take only the following medications with a SIP of water on the morning of surgery: ___LATUDA, LITHIUM, ZOLOFT MAY USE ALBUTEROL, GABAPENTIN, ZOFRAN NEEDED DO NOT STOP ANY OF YOUR OTHER PRESCRIPTION MEDICATIONS PRIOR TO SURGERY EXCEPT THE FOLLOWING Hold all vitamins and supplements for 3 days per anesthesiologist. 04/13/25 Medications to discontinue per physician ____HOLD ALL NSAIDS(IBUPROFEN) 7 DAY PRE-OP PER DR LANDRY Date to take last dose 04/09/25 HOLD METHOTREXATE 1 WEEK PRIOR TO SURGERY PER LEAD CASTER HELPER (04/12/25 dose) Please no make-up, nail mohawk, hairspray, perfume, deodorant, or body powder the day of surgery.? No jewelry (including any body piercings) or valuables the day of surgery, leave them at home.? Please take a shower or bath the night before, or the morning of, surgery with an antibacterial soap.? Wear comfortable, loose fitting clothing.? - Jewelry must be removed prior to entering the operating room.? Rings and piercings that are not removed may be cut off. - The hospital will not accept responsibility for valuables.? - Please leave all valuables, including medications, at home the day of surgery. If you are going home after surgery, a licensed taxi driver must drive you home.? - NO public transportation without another adult if you receive anesthesia. - We recommend that an adult stay with you for 24 hours following discharge. - We also recommend that you do not drive, make important decision, drink alcoholic beverages, or take any drugs that were not prescribed by your health care provider for at least 24 hours after your discharge time. Follow any additional instructions given to you from your surgeon. REGGIE SHOWERS PER DR LANDRY Telephone instructions given to ___PATIENT and asked if any additional questions and then verbalized understanding. Patient advised to call surgeon office or pre surgery nurse liaison [phone] if any additional questions.
[2025-04-17] VITALS (10 sets, daily range): BP systolic 121–140; BP diastolic 70–83; PULSE 71–110; RESP 16–26; TEMP 36.4–36.6; O2SAT 92–98
--- NOTE | ~2025-04-17 | XR_ITS ---
EXAMINATION: [id number], 04/17/2025 10:48 COORDINATOR OF PLACEMENT HISTORY: POST OP RIGHT TKA COMPARISON: No comparisons available. Findings: No acute fracture or malalignment. Arthroplasty intact Soft tissues unremarkable. Impression: No acute fracture or malalignment. Reviewed, dictated and finalized at location P. DINATOR OF PLACEMENT Impression: No acute fracture or malalignment.
[2025-04-17] MEDS: LACTATED RINGERS 1,000 ML 30 ML IV CONT ×2 (06:30→10:37)
[2025-04-17] MEDS: ACETAMINOPHEN 500 MG TABLET 1000 MG PO (07:00)
[2025-04-17] MEDS: TRANEXAMIC ACID 1,000MG/ISO100 1,000 MG/100 ML BAG 200 MG IVPB (07:00)
--- NOTE | 2025-04-17 07:23 | WPDHPUPDATE1 ---
History and Physical Update Update Date/Time: 04/17/25 07:23 History and Physical has been reviewed, including an updated exam of the patient. There are NO changes in the patient's condition. Risks, benefits, and alternatives have been discussed and questions answered. Patient agrees to proceed with procedure.
--- NOTE | 2025-04-17 07:25 | WPDANESPNB ---
Anes - Peripheral Nerve Block Date/Time: 04/17/25 07:25 I have discussed with the patient/family/POA the placement of a peripheral nerve block for post-operative pain management, including associated risks, benefits, complications, and side effects. Alternative methods of post-operative analgesia were detailed. Questions were solicited and answers provided to the satisfaction of the patient/family/POA. Time-Out: A pre-procedural Time-Out was completed immediately before starting the procedure and confirmed: Patient Identification, Site, Procedure, Patient Position and the Availability of Requisite Equipment. Clinical Indications: Acute post-operative pain management requested by the operative surgeon. Nerve Block Insertion Note Anes-nerve block: adductor canal right Patient position: supine Skin prep: chlorhexidine Needle: 22 gauge, stimulating, insulated echogenic needle. Needle length: 80 mm Technique: ultrasound Injectate: other (Bupiv 0.5% 15 mls. ) Observations: tolerated well Complications: none Procedure start time:: 723 Procedure end time:: 728
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
[2025-04-17] MEDS: TRANEXAMIC ACID 1,000 MG/10 ML AMPUL 1000 MG IV PUSH (09:33)
--- NOTE | 2025-04-17 11:24 | P.OP_ITS ---
Procedure Note - Detailed Date of Procedure 04/17/25 Pre-op Diagnosis Rt Knee DJD Post-op Diagnosis Same Procedure Performed R TKA Surgeon Lalo Irizarry MD Anesthesia General Description of Procedure THE RIGHT KNEE WAS PREPPED AND DRAPED IN THE STERILE FASHION. THERE WAS A 10 DEGREE FLEXION CONTRACTURE. A MIDLINE SKIN INCISION WAS MADE. A MEDIAL PARAPATELLAR ARTHROTOMY WAS MADE. THE PATELLA WAS EVERTED. THERE WAS TRICOMPARTMENT DJD. THERE WAS MINIMAL PATELLA DJD. AN INTRAMEDULLARY MARKO WAS PLACED IN THE FEMUR. A DISTAL FEMORAL CUT WAS MADE IN 5 DEGREES OF VALGUS REMOVING APPROXIMATELY 8 MM OF BONE FROM THE DISTAL FEMUR. THE FEMUR WAS SIZED TO 5. A 5 FEMORAL CUTTING BLOCK WAS PLACED IN 3 DEGREES OF EXTERNAL ROTATION AND IN ALIGNMENT WITH FARA'S LINE AND THE TRANSEPICONDYLAR AXIS. ANTERIOR POSTERIOR AND CHAMFER CUTS WERE MADE. THE CUTS WERE EXCELLENT. NEXT AN INTRAMEDULLARY CUTTING GUIDE WAS PLACED IN THE TIBIA. A TRANS TIBIAL CUT WAS MADE ALONG THE LONG AXIS OF THE TIBIA. APPROXIMATELY 6 MM OF BONE WAS REMOVED FROM THE HIGH SIDE OF THE TIBIA. THE TIBIA WAS THEN PLANED TO A SMOOTH SURFACE. POSTERIOR FEMORAL OSTEOPHYTES WERE REMOVED FROM THE FEMORAL CONDYLES. A 5 TIBIAL TRIAL WAS PLACED IN ALIGNMENT WITH THE 1/3 MEDIAL ASPECT OF THE TIBIAL TUBERCLE. THEN A 5 FEMORAL TRIAL COMPONENT WAS PLACED. BOTH HAD EXCELLENT FITS. EVENTUALLY A 12 MM CS POLYETHYLENE TRIAL COMPONENT WAS PLACED. THE KNEE WAS TAKEN THROUGH A RANGE OF MOTION. THE KNEE CAME OUT TO FULL EXTENSION. THE RE WAS NO ABNORMAL TILT TO THE PATELLA. THERE WAS GOOD A/P AND VARUS/VALGUS STABILITY. THERE WAS NO EXCESSIVE ROLL BACK WITH FLEXION. THE TRIAL COMPONENTS WERE REMOVED. THEN A 5 FEMORAL COMPONENT AND 5 TIBIAL COMPONENT WITH A 12 CS POLYETHYLENE COMPONENT WERE PRESS FIT INTO PLACE. THE KNEE WAS TAKEN THROUGH A ROM AGAIN AND FOUND TO BE STABLE WITH NO PATELLA TILT NO EXCESSIVE ROLL BACK WITH FLEXION AND GOOD STABILITY WITH COMPLETE AND FULL EXTENSION. THE KNEE WAS IRRIGATED WITH STERILE BETADINE AND WATER FOR ABOUT 3 MINUTES. THE BLEEDERS WERE CAUTERIZED. THE ARTHROTOMY WAS REPAIRED WITH NUMBER 1 VICRYL. THE SUB CUTANEOUS LAYER WITH 2-0 VICRYL AND THE SKIN WITHE 3-0 QUIL AND DERMABOND. THE WOUND WAS WASHED AND A STERILE DRESSING WAS APPLIED. PATIENT WAS EXTUBATED. Estimated Blood Loss -150.0 Pathology None sent Complications No immediate complications Condition Stable Disposition PACU
[2025-04-17] MEDS: oxyCODONE HCL (*CRX) 5 MG TAB IR PO (11:49)
--- NOTE | 2025-04-17 11:50 | SUR.PHASEII ---
Patient offered lunch tray and declined. Stated he is satisfied with crackers and soda.
--- NOTE | 2025-04-17 12:14 | SUR.PHASEII ---
Per PT patient is safe for d/c from their standpoint.
--- NOTE | 2025-04-17 12:36 | SUR.PHASEII ---
Per OT patient safe for d/c.
--- NOTE | 2025-04-17 12:40 | SUR.PHASEII ---
Patient again offered lunch tray by RN and pt declined.
--- NOTE | 2025-04-17 13:00 | SUR.PHASEII ---
Cryocuff given to patient. Patient and spouse educated on use of ice machine. All questions answered at this time.
== END 2025-04-17 13:20 | disposition home or self-care (01) ==
PROVIDERS: PCP Internal Medicine; Visit Provider Orthopaedic Surgery
PROC: (CPT 27447; principal; 2025-04-17 07:30)
DX: M17.11 Unilateral primary osteoarthritis, right knee (principal); M25.761 Osteophyte, right knee; G89.18 Other acute postprocedural pain; E78.2 Mixed hyperlipidemia; J45.909 Unspecified asthma, uncomplicated; E11.9 Type 2 diabetes mellitus without complications; I10 Essential (primary) hypertension; F41.9 Anxiety disorder, unspecified; L82.1 Other seborrheic keratosis; K21.00 Gastro-esophageal reflux disease with esophagitis, without bleeding; M06.4 Inflammatory polyarthropathy; F43.10 Post-traumatic stress disorder, unspecified; R53.83 Other fatigue; G89.29 Other chronic pain; M06.9 Rheumatoid arthritis, unspecified; F98.8 Other specified behavioral and emotional disorders with onset usually occurring in childhood and adolescence; F31.9 Bipolar disorder, unspecified; M79.7 Fibromyalgia; K58.9 Irritable bowel syndrome, unspecified; E88.810 Metabolic syndrome; G25.81 Restless legs syndrome; F12.90 Cannabis use, unspecified, uncomplicated; G47.33 Obstructive sleep apnea (adult) (pediatric); Z99.89 Dependence on other enabling machines and devices; E66.9 Obesity, unspecified; Z68.32 Body mass index [BMI] 32.0-32.9, adult; Z79.51 Long term (current) use of inhaled steroids; Z79.84 Long term (current) use of oral hypoglycemic drugs; Z79.1 Long term (current) use of non-steroidal anti-inflammatories (NSAID); Z79.85 Long-term (current) use of injectable non-insulin antidiabetic drugs; Z96.82 Presence of neurostimulator; Z98.1 Arthrodesis status; Z90.49 Acquired absence of other specified parts of digestive tract; Z82.49 Family history of ischemic heart disease and other diseases of the circulatory system
CPT/HCPCS: 64447; 27447; 73560; 82948; 97110; 97161; 97165; A9270; C1713; C1776; J0166; J1885; J2003; J2250; J2270; J2405; J2704; J2795; J3010; J3290; J3373; J7120

== ENCOUNTER 2025-05-06 14:16 | Inpatient (IN) | payer BC, SELFPAY ==
--- OUTSIDE RECORDS SUMMARY | 2024-04-28 15:30 | XMS_ITS ---
Author Organization [facility] Address [address] [place], [place] [id number] Care Team Providers Care Ekg/Ecg Technician Name Role Phone Saez Bob Primary Care Provider Migration, Provider Unavailable Unavailable Allergies Allergen (clinical drug ingredient) Drug/Non Drug Allergy documented on EMR Reaction Allergy Type Onset Date Status testosterone Testosterone Unknown Drug Allergy A ctive pregabalin Lyrica Unknown Drug Allergy Active [facility] Encounter Medications Medication SIG (Take, Route, Frequency, Duration) Notes Start Date End Date Status Pravastatin Sodium 40 MG Tablet 1 tab(s) orally once a day Active Wellbutrin XL 150 MG Tablet Extended Release 24 Hour 1 tab(s) orally every 24 hours Active [place] Carbonate 300 MG Capsule 1 cap(s) orally 3 times a day Active Lisinopril 20 MG Tablet 1 tab(s) orally once a day Active Zoloft 100 MG Tablet 1 tab(s) orally once a day Active metFORMIN HCl ER 500 MG Tablet Extended Release 24 Hour 1 tab(s) orally once a day Active Methotrexate 2.5 MG TABLET DIRECTED ORALLY ONCE A WEEK *Please review and pick correct strength-formulati on from [facility] options. If intended option is not shown, discontinue and re-order from Quick Search* Active OZEMPIC 4 MG/3 ML SOLUTION DIRECTED SUBCUTANEOUSLY ONCE A WEEK *Please review for potential replacement for e-prescription and drug interaction check* Active Encounters Encounter Location Date Provider Diagnosis [facility] [address] [place], [place] [id number] 04/28/2024 Provider Migration Plan Of Treatment No Information Progress Notes * Rashaad LOCKHARTDOAnh:1970 ( 54 yo M)Acc No.[id number]:04/28/2024 Patient: Rashaad Chavira Provider: Patrick Hall :1970 A ge:53 Y S ex:Male Date:04/28/2024 Address:[address] [place], [place] [id number] Pcp:Bob Saez Subjective: * Chief Complaints: * M ultum To [facility] Conversion Encounter * Medications: T akingOZEMPIC 4 MG/3 ML SOLUTION DIRECTED SUBCUTANEOUSLY ONCE A WEEK , Notes to Pharmacist: *Please review for potential replacement for e-prescription and drug interaction check*Methotrexate 2.5 MG TABLET DIRECTED ORALLY ONCE A WEEK , Notes to Pharmacist: *Please review and pick correct strength-formulation from [facility] options. If intended option is not shown, discontinue and re-order from Quick Search*metFORMIN HCl ER 500 MG Tablet Extended Release 24 Hour 1 tab(s) orally once a day Wellbutrin XL 150 MG Tablet Extended Release 24 Hour 1 tab(s) orally every 24 hours Zoloft 100 MG Tablet 1 tab(s) orally once a day Lisinopril 20 MG Tablet 1 tab(s) orally once a day [place] Carbonate 300 MG Capsule 1 cap(s) orally 3 times a day Pravastatin Sodium 40 MG Tablet 1 tab(s) orally once a day Taking OZEMPIC 4 MG/3 ML SOLUTION DIRECTED SUBCUTANEOUSLY ONCE A WEEK , Notes to Pharmacist: *Please review for potential replacement for e-prescription and drug interaction check*Taking Methotrexate 2.5 MG TABLET DIRECTED ORALLY ONCE A WEEK , Notes to Pharmacist: *Please review and pick correct strength-formulation from [facility] options. If intended option is not shown, discontinue and re-order from Quick Search*Taking metFORMIN HCl ER 500 MG Tablet Extended Release 24 Hour 1 tab(s) orally once a day Taking Wellbutrin XL 150 MG Tablet Extended Release 24 Hour 1 tab(s) orally every 24 hours Taking Zoloft 100 MG Tablet 1 tab(s) orally once a day Taking Lisinopril 20 MG Tablet 1 tab(s) orally once a day Taking [place] Carbonate 300 MG Capsule 1 cap(s) orally 3 times a day Taking Pravastatin Sodium 40 MG Tablet 1 tab(s) orally once a day * Allergies: L yricaTestosterone * Electronic signature of Prov ider Migration on 05/06/2025 at 04:04 PM LOGISTICS CENTER MANAGER Sign off status: Pending * Provider: Patrick rader Migration Date: 06/29/2023 Generated for Gamaliel castanon/Miguelito/Eitan on: 07/07/2024 04:04 PM LOGISTICS CENTER MANAGER
[2025-05-06] VITALS (16 sets, daily range): BP systolic 89–124; BP diastolic 39–95; PULSE 82–96; RESP 16–31; TEMP 36.6–36.7; O2SAT 95–100; BMI 29.9; BMI 29.6
--- NOTE | ~2025-05-06 | US_ITS ---
EXAMINATION: US venous doppler [facility] DATE: 05/07/2025 12:12 INDICATION: Lower limb pain TECHNIQUE: Grayscale ultrasound images without and with compression and Doppler ultrasound images of the bilateral lower extremity veins were obtained. COMPARISON: None. FINDINGS: The visualized portions of right common femoral vein, profunda (deep) femoral vein, femoral vein, popliteal vein, posterior tibial veins, peroneal veins, gastrocnemius vein and greater saphenous vein outflow are patent. The visualized portions of left common femoral vein, profunda femoral vein, femoral vein, popliteal vein, posterior tibial veins, peroneal veins, gastrocnemius vein and greater saphenous vein outflow are patent. IMPRESSION: 1. No deep venous thrombosis in either lower limb. Reviewed, dictated and finalized at location A. FIELD TECHNICIAN
--- NOTE | ~2025-05-06 | CT_ITS ---
EXAMINATION: CT brain wo con DATE: 05/06/2025 14:58 INDICATION: Slurred speech TECHNIQUE: Computed tomography (CT) of the head was performed without intravenous contrast. Sagittal and coronal reconstructions were performed. The mA was adjusted according to patient size. Iterative reconstruction technique was employed. The dose-length product was 681.00 mGy-cm. COMPARISON: None FINDINGS: No acute intracranial hemorrhage, acute infarction or abnormal extra axial fluid collection. Ventricles are normal and symmetric. No mass/mass effect. The orbits, paranasal sinuses and mastoid air cells are normal. IMPRESSION: 1. No acute intracranial process. Reviewed, dictated and finalized at location A. S WORKER
--- NOTE | ~2025-05-06 | XR_ITS ---
EXAMINATION: XR chest 1V portable 05/06/2025 14:55 INDICATION: Neurological symptoms PROCEDURE: AP portable chest COMPARISON: Comparison to multiple prior studies sequentially, with oldest reviewed study dated 02/09/2016. FINDINGS: The lungs are clear. The cardiomediastinal silhouette is within normal limits. There are no pleural effusions. There is no pneumothorax suspected. There are spinal fusion changes of the midthoracic spine. IMPRESSION: 1: NO ACUTE CARDIOPULMONARY DISEASE. Reviewed, dictated and finalized at location O. OR LOGISTICS MANAGER
--- NOTE | 2025-05-06 14:32 | ECG_ITS ---
Test Date: 2025-05-06 14:37:46 Measurements Intervals [place] Rate: 91 P: 29 KS: 161 QRS: -23 QRSD: 117 T: 30 QT: 388 QTc: 478 Interpretive Statements SINUS RHYTHM INTRAVENTRICULAR CONDUCTION DELAY CONSIDER ANTERIOR INFARCT, AGE INDETERMINATE BASELINE ARTIFACT- I, II, AVR, AVL, AVF, V1-V3 ABNORMAL ECG Compared to ECG 02/07/2025 10:51:02 NO SIGNIFICANT CHANGE Electronically Signed On 05-06-2025 14:53:10 FULFILLMENT SPECIALIST by Андрей Al D.O.
[2025-05-06 14:46] LABS: Hematocrit 34.8 % (42.0-52.0); Hemoglobin 11.4 g/dL (14.0-18.0); Immature Granulocyte Percent A 0.6 % (0-0.5); Lymphocytes Absolute Auto 1.34 K/mm3 (0.9-3.2); Mean Corpuscular HGB Conc 32.8 g/dl (32-36); Mean Corpuscular Hemoglobin 29.2 pg (26-34); Mean Corpuscular Volume 89.2 fl (80-100); Nucleated Red Blood Cells Absolute Auto 0.000 K/mm3 (0.0-0.012); Nucleated Red Blood Cells Perc 0.0 % (0.0-0.2); Platelet Count Result 618 k/mm3 (150-375); Red Blood Count 3.90 M/mm3 (4.6-6.20); White Blood Count 14.6 K/mm3 (4.5-10.0)
[2025-05-06 14:58] LABS: INR 1.1; Prothrombin Time 14.6 Seconds (11.1-14.7)
[2025-05-06 14:59] LABS: Alanine Aminotransferase 22 U/L (6-50); Albumin Level 4.1 g/dL (3.5-5.1); Alkaline Phosphatase 274 U/L (38-126); Anion Gap 14 mmol/L (4-12); Aspartate Amino Transferase 22 U/L (17-59); Bilirubin,Total 0.7 mg/dL (0.2-1.3); Blood Urea Nitrogen 49 mg/dL (9-20); Calcium 9.5 mg/dL (8.4-10.2); Carbon Dioxide 14 mmol/L (22-30); Chloride 98 mmol/L (98-107); Estimated CRCL calculation 27 ml/min; Estimated Glomerular Filt Rate 17; Glucose 99 mg/dL (65-110); Partial Thromboplastin Time 30.2 Seconds (22.3-36.8); Potassium 4.4 mmol/L (3.4-5.0); Sodium 126 mmol/L (137-145); Total Protein 7.4 g/dL (6.3-8.2)
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
[2025-05-06 15:10] LABS: Troponin I < 0.012 ng/mL (0.000-0.034)
[2025-05-06] MEDS: SODIUM CHLORIDE 0.9% IV 1,000 ML 999 ML IV CONT ×2 (15:27)
--- OUTSIDE RECORDS SUMMARY | 2025-05-06 16:04 | XMS_ITS | Clinical Summary ---
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
--- OUTSIDE RECORDS SUMMARY | 2025-05-06 16:04 | XMS_ITS | Patient Health Record ---
Author Organization [facility] [employer] [facility] Address [address] [place] [address] Care Team Providers Care Sales And Training Specialist Name Role Phone Dave Power DO Primary Care Provider [address] Unavailable [phone] Deidra Hernandez Unavailable [phone] Allergies Allergen (clinical drug ingredient) Drug/Non Drug Allergy documented on EMR Reaction Allergy Type Onset Date Status amoxicillin / clavulanate Augmentin Unknown Drug Allergy 09/15/2023 Active testosterone Testosterone Unknown Drug Allergy 09/15/2023 Active Iodine Unknown Drug Allergy Active Reason For Referral No Information Medications Medication SIG (Take, Route, Frequency, Duration) Notes Start Date End Date Status Lurasidone HCl 80 MG Tablet Oral; Durati on: 90 Days Active Hydroxychloroquine Sulfate 2 00 MG Tablet Oral; Duration: 90 Days Active Gabapentin 300 MG Capsule Oral; Duration : 90 Days Active [place] Carbonate 300 MG Capsule 2 capsule Oral Twice a day; Duration: 90 days 05/03/2025 Active Sertraline HCl 100 MG Tablet Oral; Durat ion: 90 Days Active QUEtiapine Fumarate 50 MG Tablet Oral; Duration: 90 Days Active Pravastatin Sodium 40 MG Tablet Oral; Duration: 90 Days Active Lisinopril 20 MG Tablet Oral; Duration: 90 Days Active QUEtiapine Fumarate 50 MG Tablet 2 tablet at bedtime Orally Once a day; Duration: 90 days 05/03/2025 Active Lurasidone HCl 80 MG Tablet 1 tablet wit h food Orally twice a day; Duration: 90 days 05/03/2025 Active DULoxetine HCl 60 MG Capsule Delayed Release Particles 1 capsule at bedtime Oral Once a day; Duration: 90 days 05/03/2025 Active DULoxetine HCl 60 MG Capsule Delayed Release Particles Oral; Duration: 90 Days Active Sertraline HCl 100 MG Tablet 1.5 tablet Oral Once a day; Duration: 90 days 05/03/2025 Active Mounjaro 7.5 MG/0.5ML Soluti on Auto-injector Subcutaneous; Duration: 84 Days Active Immunizations Vaccine Route Administration Date Status Comme nts Influenza (split), preservat tri free, 6-35 months Unknown 01/17/2013 Administered Influenza (split), preservat tri free, 6-35 months Unknown 02/13/2018 Administered Influenza virus vaccine, quadrivalent (IIV4), split virus, 0.25 mL dosage Unknown 02/23/2017 Administered Influenza virus vaccine, quadrivalent (IIV4), split virus, 0.25 mL dosage Unknown 02/13/2018 Administered Influenza virus vaccine, quadrivalent (IIV4), split virus, 0.25 mL dosage Unknown 03/15/2019 Administered Influenza virus vaccine, quadrivalent (IIV4), split virus, 0.25 mL dosage Unknown 02/08/2020 Administered Influenza virus vaccine, quadrivalent (IIV4), split virus, 0.25 mL dosage Unknown 02/13/2021 Administered Influenza, injectable, MDCK, preservative free Unknown 02/17/2016 Administered Influenza, seasonal, injecta ble, preservative free, 3 yrs and above Unknown 02/05/2014 Administered Novel [id number], preservative free Unknown 02/20/2018 Administered Novel [id number], preservative free Unknown 03/15/2019 Administered Novel [id number], preservative free Unknown 01/23/2020 Administered Pfizer Biontech Covid-19 Vac cine 2nd dose Unknown 07/18/2020 Administered Pfizer Biontech Covid-19 Vac cine 2nd dose Unknown 08/08/2020 Administered Pfizer Biontech Covid-19 Vac cine 2nd dose Unknown 03/13/2021 Administered Pfizer Biontech Covid-19 Vac cine 2nd dose Unknown 05/25/2021 Administered Pfizer Biontech Covid-19 Vac cine 2nd dose Unknown 02/05/2022 Administered Pneumococcal polysaccharide PPV23 Unknown 02/17/2016 Ad ministered Tdap Unknown 02/13/2018 Administered Tdap Unknown 02/20/2018 Administered Social History Tobacco Use: Social History Observation Description Date Details (start date - stop date) Never Smoker NA - NA Sex Assigned At : Social History Observation Description Sex Assigned At Male Social History Miscellaneous: Social Info Question Answer Notes Advance Care Planning Are you your own decision-maker Yes Do you have Power of Entry Processor for Health or Medi anjel? Yes Do you have a power of trial attorney for health? Yes Do you have power of trial attorney for Medical ? Yes If yes, then please bring the POA paperwork so that we can upload it. No Tobacco Use: Social Info Question Answer Notes Tobacco Control (Standard) Tobacco use: Nonsmoker Additional Details Category Social Info Options Details Migrated Social History Migrated Social History Alcohol Intake: None 06/29/2022,Tobacco Years: Never smoker 06/22/2018,Smoking Status: 0 06/29/2023 Drug/Alcohol: Do you smoke marijuana? Den ies Do you drink alcohol? 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 Occupation: Works; Schedules Medication Adjustments Around Work Days Occupation: Works at the [email or web address] Occupation: Works; Schedules Medication Adjustments Around Work Days Occupation: Works at the [email or web address] Problems Problem Type SNOMED Code ICD Code Onset Dates Problem Status W/U Status Risk Notes Problem Bipolar affective disorder, currently depressed, mild (851492638) Bipolar disorder, current episode depressed, mild (F31.31) Active confirmed Problem Generalized anxiety disorder (72732213) Generalized anxiety disorder (F41.1) Active confirmed Problem Posttraumatic stress disorder (15046418) Post-traumatic stress disorder, chronic (F43.12) Active confirmed Problem Primary insomnia (7222401) Primary insomnia (F51.01) Active confirmed Problem Attention deficit hyperactivity disorder, combined type (75950807) Attention-deficit hyperactivity disorder, combined type (F90.2) Active confirmed Problem Obstructive sleep apnea syndrome (disorder) (23525192) Obstructive sleep apnea (adult) (pediatric) (G47.33) Active confirmed Problem Neurostimulator device in situ (finding) (672065197) Presence of neurostimulator (Z96.82) Active confirmed Problem Bipolar disorder (03075187) Bipolar 1 disorder, depressed (F31.9) Active confirmed Problem Obstructive sleep apnea (19709908) Obstructive sleep apnea (G47.33) 10/18/19 19 Active confirmed Problem Hyperlipidemia (68872999) Hyperlipidemia (E78.5) 07/04/19 24 Active confirmed Problem Hypertension (87809175) Hypertension (I10) 07/04/19 24 Active confirmed Problem Restless legs (32170126) RLS (restless legs syndrome) (G25.81) 10/18/19 19 Active confirmed Problem Raised antinuclear antibody (175746569) DUARTE positive (R76.8) 07/04/19 24 Active confirmed Vital Signs Heart Rate 82 /min 03/27/2025 Height-cm 182.88 cm 03/27/2025 Blood pressure diastolic 79 mm Hg 03/27/2025 Weight-kg 113.4 kg 03/27/2025 Height 72.00 in 03/27/2025 Blood pressure systolic 117 mm Hg 03/27/2025 Weight 250 lbs 03/27/2025 BMI 33.9 kg/m2 03/27/2025 Encounters Encounter Location Date Provider Diagnosis [facility] [employer] [place] [id number] [facility] [address] [address] 05/30/2024 Clark Kwong Generalized anxiety disorder F41.1 ; Bipolar 1 disorder, depressed F31.9 ; Post-traumatic stress disorder, chronic F43.12 and Hypertension I10 [facility] [employer] [place] [address] [facility] [address] [address] 06/06/2024 Deidra Hemjase Post-traumatic stres s disorder, chronic F43.12 ; Generalized anxiety disorder F41.1 ; Bipolar disorder, current episode depressed, mild F31.31 and Attention-deficit hyperactivity disorder, combined type F90.2 [facility] [facility] [address] [facility] [address] [address] 06/13/2024 Clark Kwong Generalized anxiety disorder F41.1 ; Bipolar 1 disorder, depressed F31.9 ; Post-traumatic stress disorder, chronic F43.12 and Hypertension I10 [facility] [employer] [facility] [address] [facility] [address] [address] 08/01/2024 Deidra Hemjase Post-traumatic stres s disorder, chronic F43.12 ; Generalized anxiety disorder F41.1 ; Bipolar disorder, current episode depressed, mild F31.31 ; Attention-deficit hyperactivity disorder, combined type F90.2 and Encounter for screening for depression Z13.31 [place] [address] [facility] [address] [place] [address] 08/01/2024 Clark Kwong Encounter for screen ing for cardiovascular disorders Z13.6 ; Encounter for screening for depression Z13.31 ; Generalized anxiety disorder F41.1 ; Bipolar 1 disorder, depressed F31.9 ; Post-traumatic stress disorder, chronic F43.12 and Hypertension I10 [address] [facility] [address] [place] [address] 11/07/2024 Deidra Kernann Post-traumatic stres s disorder, chronic F43.12 ; Generalized anxiety disorder F41.1 ; Bipolar disorder, current episode depressed, mild F31.31 ; Attention-deficit hyperactivity disorder, combined type F90.2 and Encounter for screening for depression Z13.[address] [facility] [address] [place] [address] 11/07/2024 Clark Kwong Bipolar disorder, current episode depressed, mild F31.31 ; Generalized anxiety disorder F41.1 ; Attention-deficit hyperactivity disorder, combined type F90.2 ; Encounter for screening for cardiovascular disorders Z13.6 ; Encounter for screening for depression Z13.31 and Obstructive sleep apnea G47.33 [place] [address] [facility] [address] [facility] [address] [place] [address] 12/05/2024 Clark Elenita Bipolar disorder, current episode depressed, mild F31.31 ; Generalized anxiety disorder F41.1 ; Attention-deficit hyperactivity disorder, combined type F90.2 ; Obstructive sleep apnea G47.33 and Post-traumatic stress disorder, chronic F43.12 [facility] [place] [place] [id number] [facility] [address] [facility] [address] [place] [address] 01/03/2025 Clark Elenita Bipolar disorder, current episode depressed, mild F31.31 ; Generalized anxiety disorder F41.1 ; Attention-deficit hyperactivity disorder, combined type F90.2 and Obstructive sleep apnea G47.33 [place] [address] [facility] [address] [facility] [address] [place] [address] 01/31/2025 Clark Elenita Bipolar disorder, current episode depressed, mild F31.31 ; Generalized anxiety disorder F41.1 ; Attention-deficit hyperactivity disorder, combined type F90.2 ; Obstructive sleep apnea G47.33 ; Obstructive sleep apnea (adult) (pediatric) G47.33 and Primary insomnia F51.01 [facility], [facility] [address] [place] [address] 02/21/2025 Deidra Hemann Post-traumatic stres s disorder, chronic F43.12 ; Bipolar disorder, current episode depressed, mild F31.31 and Attention-deficit hyperactivity disorder, combined type F90.2 [facility], [facility] [address] [place] [address] 02/27/2025 Clarkevelyn Kwong Bipolar disorder, current episode depressed, mild F31.31 ; Generalized anxiety disorder F41.1 ; Attention-deficit hyperactivity disorder, combined type F90.2 ; Obstructive sleep apnea G47.33 ; Primary insomnia F51.01 and Post-traumatic stress disorder, chronic F43.12 [facility], [place] [address] [place] [address] 03/27/2025 Clarkevelyn Kwong Bipolar disorder, current episode depressed, mild F31.31 ; Generalized anxiety disorder F41.1 ; Attention-deficit hyperactivity disorder, combined type F90.2 ; Obstructive sleep apnea G47.33 ; Primary insomnia F51.01 ; Post-traumatic stress disorder, chronic F43.12 and Presence of neurostimulator Z96.82 [facility], [facility] [address] [place] [address] 05/03/2025 Clark Kwong Bipolar disorder, current episode depressed, mild F31.31 ; Generalized anxiety disorder F41.1 and Attention-deficit hyperactivity disorder, combined type F90.2 [facility], [facility] [address] [place] [address] 05/28/2024 Clark [facility], [facility] [address] [place] [address] 09/13/2024 Clark [facility], [facility] [address] [place] [address] 09/13/2024 Clark [facility], [place] [address] [place] [address] 11/20/2024 [facility] [address] [place] [address] 11/20/2024 [facility] [employer] [facility] [address] [place] [address] 12/11/2024 [facility] [employer] [facility] [address] [place] [address] 12/25/2024 [facility] [employer] [facility] [address] [place] [address] 03/13/2025 Clark Kwong Assessments Encounter Date Diagnosis (ICD Code) Assessment Notes Treatment Notes Treatment Clinical Notes Section Notes 05/30/2024 Generalized anxiety disorder (ICD-10 - F41.1) Insomnia and Racing Thoughts - Assessment: Patient reports difficulty sleeping and overthinking, with only 5 hours of sleep per night. - Plan: - Prescribe slow-release quetiapine 150 mg to be taken around 5-6 p.m. for one week, then increase to 300 mg. - Reassess in two weeks. Anxiety and Irritability - Assessment: Patient's reports that anxiety medication is not working, and the patient is having difficulty masking emotions. - Plan: - Discontinue Vraylar, provide 1.5 mg samples for one week, then stop. - Monitor for changes in anxiety and irritability. Depression - Assessment: Patient reports feeling depressed and sad, with thoughts of not waking up but no active suicidal plans. - Plan: - Continue current medications (Cymbalta 60 mg, sertraline 150 mg, lithium 1200 mg daily, and 2 capsules of Tegretol). - Reassess in two weeks. Vagal Nerve Stimulator (VNS) Concerns - Assessment: Patient is unsure if VNS is on and reports no improvement in symptoms. - Plan: - Monitor VNS progress. - VNS should be turned on in September (12 months post-surgery) . Medication Management - Assessment: Patient reports that medications initially help but then stop working. - Plan: - Maintain current lithium dosage at 600 mg in the morning and 600 mg at night, totaling 1,200 mg. - Reassess in two weeks. Therapy Change Request - Assessment: Patient requests a change in therapist from Deidra to Vivian due to stagnation in progress after nearly 12 years. - Plan: - Patient will discuss the change with Deidra during their next session on Tuesday. - Deidra can recommend a new therapist (options include [place], or Kerri) and provide a summary of the patient's history to the new therapist. Follow-up - Plan: - Schedule a follow-up appointment in two weeks to reassess medication changes and overall progress. 06/06/2024 Generalized anxiety disorder (ICD-10 - F41.1) 06/06/2024 Post-traumatic stress disorder, chronic (ICD-10 - F43.12) 06/13/2024 Generalized anxiety disorder (ICD-10 - F41.1) 08/01/2024 Generalized anxiety disorder (ICD-10 - F41.1) 08/01/2024 Post-traumatic stress disorder, chronic (ICD-10 - F43.12) 08/01/2024 Encounter for screening for cardiovascular disorders (ICD-10 - Z13.6) 11/07/2024 Generalized anxiety disorder (ICD-10 - F41.1) 11/07/2024 Post-traumatic stress disorder, chronic (ICD-10 - F43.12) 11/07/2024 Bipolar disorder, current episode depressed, mild (ICD-10 - F31.31) Patient reports increased irritability since discontinuing Seroquel. Considering increasing Latuda dosage to 80 mg. Part of a study with biannual check-ins. - Consider increasing Latuda to 80 mg to address irritability. - Monitor symptoms and adjust medication as needed. - Continue study participation with biannual check-ins. 11/07/2024 Generalized anxiety disorder (ICD-10 - F41.1) Patient is taking Zoloft and duloxetine for anxiety and depression. Reports irritability over minor issues. - Continue Zoloft and duloxetine for anxiety management. - Monitor irritability and adjust medication as needed. 12/05/2024 Bipolar disorder, current episode depressed, mild (ICD-10 - F31.31) Patient reports ongoing mood swings and irritability. Hallucinations have improved. Previously on Seroquel, which was effective but caused excessive sedation. Currently on Latuda (lorazadone) at 80 mg, with plan to increase to 160 mg. [place] and duloxetine continued as part of regimen. - Increase lorazadone (Latuda) dose to 160 mg daily, split as 80 mg twice a day. - Continue duloxetine. - Continue lithium 600 mg twice a day. - Continue sertraline. - Send new prescription for lorazadone due to upcoming supply needs. 12/05/2024 Generalized anxiety disorder (ICD-10 - F41.1) 01/03/2025 Bipolar disorder, current episode depressed, mild (ICD-10 - F31.31) Persistent depression, irritability, agitation, and anxiety reported. Mood improved with Seroquel 50 mg, but residual symptoms remain. No current suicidal ideation, mind racing, or manic symptoms. Guilt and anxiety related to prior workplace interactions during episode. Patient actively involved in medication management and dose adjustments. - Increase Seroquel from 50 mg to 100 mg twice daily, with option to adjust up to 150 mg if needed. - Continue Latuda 160 mg. - Continue [place] 300 mg twice daily. - Refill duloxetine as requested. Patient reports ongoing trouble sleeping, currently not sleeping at all. Sleep disturbance persists despite medication adjustments. Previous Seroquel dosing led to excessive sleep; current regimen leaves patient unable to sleep. Patient and involved in considering dose adjustments. - Increase Seroquel dose as above, with option to adjust based on response. 01/31/2025 Bipolar disorder, current episode depressed, mild (ICD-10 - F31.31) Patient reports improved mental clarity and reduced mind racing. No suicidal ideation or thoughts of being better off. Persistent tiredness noted as a side effect of medication. Recent decrease in quetiapine from 150 mg to 100 mg. Considering further decrease to 75 mg on days off work. - Decrease quetiapine dose from 150 mg to 100 mg. - Allow trial of 75 mg quetiapine on days off work as tolerated. - Refill lithium as requested. 01/31/2025 Generalized anxiety disorder (ICD-10 - F41.1) 02/21/2025 Post-traumatic stress disorder, chronic (ICD-10 - F43.12) 02/27/2025 Bipolar disorder, current episode depressed, mild (ICD-10 - F31.31) Patient describes ongoing mood fluctuations, impulse control issues, and irritability. Expresses concern about ability to manage symptoms and maintain employment. History of psychiatric advice and hospitalization treatments after [place]. - Continue Latuda at 18 mg nightly. - Continue lithium at 600 mg nightly. Patient reports impulse issues including buying things and irritability. Symptoms contribute to difficulty managing bipolar disorder and maintaining employment. 02/27/2025 Generalized anxiety disorder (ICD-10 - F41.1) Patient has a history of PTSD related to experiences in [place]. Underwent hospitalization treatments after returning from [place]. Expresses ongoing concern about mental health and ability to work. 03/27/2025 Bipolar disorder, current episode depressed, mild (ICD-10 - F31.31) Mood swings and irritability were noted by the patient and his , prompting medication changes. Fatigue persists as a side effect of ongoing treatment. History of depression and suicidal thoughts discussed, but currently denied. Mood stabilized after resuming Seroquel. - Continue Seroquel. - Refill duloxetine. - Monitor mood and fatigue. Patient described a prior episode of suicidal thoughts after stopping Seroquel. No current suicidal ideation reported. - Monitor for recurrence of suicidal thoughts. 03/27/2025 Generalized anxiety disorder (ICD-10 - F41.1) 05/03/2025 Bipolar disorder, current episode depressed, mild (ICD-10 - F31.31) Mood swings and irritability were noted by the patient and his , prompting medication changes. Fatigue persists as a side effect of ongoing treatment. History of depression and suicidal thoughts discussed, but currently denied. Mood stabilized after resuming Seroquel. - Continue Seroquel. - Refill duloxetine. - Monitor mood and fatigue. Patient described a prior episode of suicidal thoughts after stopping Seroquel. No current suicidal ideation reported. - Monitor for recurrence of suicidal thoughts. 05/03/2025 Generalized anxiety disorder (ICD-10 - F41.1) 03/27/2025 Attention-deficit hyperactivity disorder, combined type (ICD-10 - F90.2) 02/21/2025 Bipolar disorder, current episode depressed, mild (ICD-10 - F31.31) 02/27/2025 Attention-deficit hyperactivity disorder, combined type (ICD-10 - F90.2) 01/31/2025 Attention-deficit hyperactivity disorder, combined type (ICD-10 - F90.2) 11/07/2024 Bipolar disorder, current episode depressed, mild (ICD-10 - F31.31) 12/05/2024 Attention-deficit hyperactivity disorder, combined type (ICD-10 - F90.2) 01/03/2025 Generalized anxiety disorder (ICD-10 - F41.1) 11/07/2024 Attention-deficit hyperactivity disorder, combined type (ICD-10 - F90.2) 08/01/2024 Encounter for screening for depression (ICD-10 - Z13.31) 06/13/2024 Bipolar 1 disorder, depressed (ICD-10 - F31.9) 06/06/2024 Bipolar disorder, current episode depressed, mild (ICD-10 - F31.31) 08/01/2024 Bipolar disorder, current episode depressed, mild (ICD-10 - F31.31) 05/30/2024 Bipolar 1 disorder, depressed (ICD-10 - F31.9) Insomnia and Racing Thoughts - Assessment: Patient reports difficulty sleeping and overthinking, with only 5 hours of sleep per night. - Plan: - Prescribe slow-release quetiapine 150 mg to be taken around 5-6 p.m. for one week, then increase to 300 mg. - Reassess in two weeks. Anxiety and Irritability - Assessment: Patient's reports that anxiety medication is not working, and the patient is having difficulty masking emotions. - Plan: - Discontinue Vraylar, provide 1.5 mg samples for one week, then stop. - Monitor for changes in anxiety and irritability. Depression - Assessment: Patient reports feeling depressed and sad, with thoughts of not waking up but no active suicidal plans. - Plan: - Continue current medications (Cymbalta 60 mg, sertraline 150 mg, lithium 1200 mg daily, and 2 capsules of Tegretol). - Reassess in two weeks. Vagal Nerve Stimulator (VNS) Concerns - Assessment: Patient is unsure if VNS is on and reports no improvement in symptoms. - Plan: - Monitor VNS progress. - VNS should be turned on in September (12 months post-surgery) . Medication Management - Assessment: Patient reports that medications initially help but then stop working. - Plan: - Maintain current lithium dosage at 600 mg in the morning and 600 mg at night, totaling 1,200 mg. - Reassess in two weeks. Therapy Change Request - Assessment: Patient requests a change in therapist from Deidra to Vivian due to stagnation in progress after nearly 12 years. - Plan: - Patient will discuss the change with Deidra during their next session on Tuesday. - Deidra can recommend a new therapist (options include Vivian, [place], or Kerri) and provide a summary of the patient's history to the new therapist. Follow-up - Plan: - Schedule a follow-up appointment in two weeks to reassess medication changes and overall progress. 05/30/2024 Post-traumatic stress disorder, chronic (ICD-10 - F43.12) Insomnia and Racing Thoughts - Assessment: Patient reports difficulty sleeping and overthinking, with only 5 hours of sleep per night. - Plan: - Prescribe slow-release quetiapine 150 mg to be taken around 5-6 p.m. for one week, then increase to 300 mg. - Reassess in two weeks. Anxiety and Irritability - Assessment: Patient's reports that anxiety medication is not working, and the patient is having difficulty masking emotions. - Plan: - Discontinue Vraylar, provide 1.5 mg samples for one week, then stop. - Monitor for changes in anxiety and irritability. Depression - Assessment: Patient reports feeling depressed and sad, with thoughts of not waking up but no active suicidal plans. - Plan: - Continue current medications (Cymbalta 60 mg, sertraline 150 mg, lithium 1200 mg daily, and 2 capsules of Tegretol). - Reassess in two weeks. Vagal Nerve Stimulator (VNS) Concerns - Assessment: Patient is unsure if VNS is on and reports no improvement in symptoms. - Plan: - Monitor VNS progress. - VNS should be turned on in September (12 months post-surgery) . Medication Management - Assessment: Patient reports that medications initially help but then stop working. - Plan: - Maintain current lithium dosage at 600 mg in the morning and 600 mg at night, totaling 1,200 mg. - Reassess in two weeks. Therapy Change Request - Assessment: Patient requests a change in therapist from Deidra to Vivian due to stagnation in progress after nearly 12 years. - Plan: - Patient will discuss the change with Deidra during their next session on Tuesday. - Deidra can recommend a new therapist (options include Vivian, London, or Kerri) and provide a summary of the patient's history to the new therapist. Follow-up - Plan: - Schedule a follow-up appointment in two weeks to reassess medication changes and overall progress. 06/13/2024 Post-traumatic stress disorder, chronic (ICD-10 - F43.12) 06/06/2024 Attention-deficit hyperactivity disorder, combined type (ICD-10 - F90.2) 08/01/2024 Attention-deficit hyperactivity disorder, combined type (ICD-10 - F90.2) 11/07/2024 Attention-deficit hyperactivity disorder, combined type (ICD-10 - F90.2) 11/07/2024 Encounter for screening for cardiovascular disorders (ICD-10 - Z13.6) 08/01/2024 Generalized anxiety disorder (ICD-10 - F41.1) 01/03/2025 Attention-deficit hyperactivity disorder, combined type (ICD-10 - F90.2) 12/05/2024 Obstructive sleep apnea (ICD-10 - G47.33) CPAP therapy is effective. Fatigue has improved significantly. - Continue CPAP therapy for sleep apnea management. - Monitor fatigue and adjust treatment as needed. Patient has a history of poor sleep and difficulty staying asleep. Sleep doctor involved in management. Patient follows sleep hygiene recommendations and has adjusted bedtime routine. 01/31/2025 Obstructive sleep apnea (ICD-10 - G47.33) Electronic Prior Authorization was requested for Modafinil 100 MG Tablet. Provider can order medication once approval received. 02/21/2025 Attention-deficit hyperactivity disorder, combined type (ICD-10 - F90.2) 02/27/2025 Obstructive sleep apnea (ICD-10 - G47.33) Patient reports unpredictable episodes of fatigue and daytime sleepiness, sometimes requiring naps at work. Symptoms persist despite consistent medication routine and daily CPAP use. Fatigue impacts ability to work and maintain daily activities. - Prescribed Modafinil 100 mg, one tablet daily in the morning. Patient uses CPAP machine daily. Sleep quality improved with CPAP and medication, but daytime tiredness persists. 05/03/2025 Attention-deficit hyperactivity disorder, combined type (ICD-10 - F90.2) 03/27/2025 Obstructive sleep apnea (ICD-10 - G47.33) Modafinil was stopped due to irritability. Fatigue persists with Seroquel. - Discontinue Modafinil. 03/27/2025 Primary insomnia (ICD-10 - F51.01) 02/27/2025 Primary insomnia (ICD-10 - F51.01) 01/31/2025 Obstructive sleep apnea (adult) (pediatric) (ICD-10 - G47.33) History of obstructive sleep apnea with ongoing tiredness. Followed by sleep specialist at [facility] for 10 years. 01/03/2025 Obstructive sleep apnea (ICD-10 - G47.33) 12/05/2024 Post-traumatic stress disorder, chronic (ICD-10 - F43.12) Patient reports increased PTSD symptoms since September, including jumpiness, hypervigilance, paranoia, and occasional hallucinations. Symptoms have persisted despite medication adjustments. No increase in depression reported. 11/07/2024 Encounter for screening for depression (ICD-10 - Z13.31) 08/01/2024 Bipolar 1 disorder, depressed (ICD-10 - F31.9) 06/13/2024 Hypertension (ICD-10 - I10) 05/30/2024 Hypertension (ICD-10 - I10) Insomnia and Racing Thoughts - Assessment: Patient reports difficulty sleeping and overthinking, with only 5 hours of sleep per night. - Plan: - Prescribe slow-release quetiapine 150 mg to be taken around 5-6 p.m. for one week, then increase to 300 mg. - Reassess in two weeks. Anxiety and Irritability - Assessment: Patient's reports that anxiety medication is not working, and the patient is having difficulty masking emotions. - Plan: - Discontinue Vraylar, provide 1.5 mg samples for one week, then stop. - Monitor for changes in anxiety and irritability. Depression - Assessment: Patient reports feeling depressed and sad, with thoughts of not waking up but no active suicidal plans. - Plan: - Continue current medications (Cymbalta 60 mg, sertraline 150 mg, lithium 1200 mg daily, and 2 capsules of Tegretol). - Reassess in two weeks. Vagal Nerve Stimulator (VNS) Concerns - Assessment: Patient is unsure if VNS is on and reports no improvement in symptoms. - Plan: - Monitor VNS progress. - VNS should be turned on in September (12 months post-surgery) . Medication Management - Assessment: Patient reports that medications initially help but then stop working. - Plan: - Maintain current lithium dosage at 600 mg in the morning and 600 mg at night, totaling 1,200 mg. - Reassess in two weeks. Therapy Change Request - Assessment: Patient requests a change in therapist from Deidra to Vivian due to stagnation in progress after nearly 12 years. - Plan: - Patient will discuss the change with Deidra during their next session on Wednesday. - Deidra can recommend a new therapist (options include Vivian, London, or Kerri) and provide a summary of the patient's history to the new therapist. Follow-up - Plan: - Schedule a follow-up appointment in two weeks to reassess medication changes and overall progress. 08/01/2024 Encounter for screening for depression (ICD-10 - Z13.31) 11/07/2024 Encounter for screening for depression (ICD-10 - Z13.31) 11/07/2024 Obstructive sleep apnea (ICD-10 - G47.33) CPAP therapy is effective. Fatigue has improved significantly. - Continue CPAP therapy for sleep apnea management. - Monitor fatigue and adjust treatment as needed. 08/01/2024 Post-traumatic stress disorder, chronic (ICD-10 - F43.12) 01/31/2025 Primary insomnia (ICD-10 - F51.01) Patient reports persistent sleep difficulties, frequent awakenings, and inability to achieve deep sleep. Has worked with sleep psychologist and implemented bedtime routine with some improvement. - Discussed possible trial of Modafinil for daytime tiredness, pending prior authorization and insurance coverage. 02/27/2025 Post-traumatic stress disorder, chronic (ICD-10 - F43.12) 03/27/2025 Post-traumatic stress disorder, chronic (ICD-10 - F43.12) 03/27/2025 Presence of neurostimulator (ICD-10 - Z96.82) VNS device is active. Patient received recall letter regarding battery. Upcoming appointment scheduled for device adjustment. - Follow up with VNS device specialist for possible adjustment. 08/01/2024 Hypertension (ICD-10 - I10) 06/13/2024 Other Bipolar Disorder - Assessment: Patient reports significant improvement in mood and anxiety over the past two weeks, describing feeling very calm and that the medicine seems to be working. Currently taking lithium 300 mg, 2 capsules twice a day, sertraline 150 mg, duloxetine 60 mg, and quetiapine ER 150 mg. - Plan: - Continue current medication regimen for the next 1-2 months before considering adjustments. - Monitor patient's progress closely. - Consider potential future adjustment: increasing quetiapine to 300 mg and decreasing lithium. Anxiety - Assessment: Patient reports a reduction in anxiety levels, but still experiences some mild anxiety, stating Just a little anxiety, but not like it has been. - Plan: - Continue current medication regimen. - Encourage patient to engage in relaxation techniques, such as meditation. Sleep - Assessment: Patient reports improved sleep quality, falling asleep around 9-9:30 PM and waking up at 6 AM. - Plan: - Continue current medication regimen. - Encourage patient to maintain a consistent sleep schedule. Lifestyle Modifications - Assessment: Patient is interested in making lifestyle changes and has started trying to exercise more. - Plan: - Encourage regular exercise. - Recommend maintaining a consistent sleep schedule. - Suggest dietary changes, such as reducing carbohydrate intake. - Recommend exploring meditation resources on the clinic's website. Medication Refills - Assessment: Patient requires refills for lithium, duloxetine, and quetiapine. - Plan: - Send 90-day prescription for quetiapine to [facility]. - Send 6-week prescription for duloxetine to [facility]. - Refill lithium as needed. - Monitor medication adherence and response to treatment. Work Performance - Assessment: Patient reports feeling more productive at work, with improved focus and better interactions with colleagues. - Plan: - Continue to monitor work performance as an indicator of overall improvement. 08/01/2024 Fabiola Lockhart, a male patient with a history of bipolar disorder, depression, and PTSD, presents for follow-up with overall improved mood and no current manic or PTSD symptoms. Bipolar Disorder Assessment: Patient reports overall improved mood with no current manic symptoms. Depression is described as better, much better but still present at a mild to low moderate level. Patient denies active suicidal ideation but expresses passive thoughts of without distress. No guilt, hopelessness, or helplessness reported. Patient is participating in a VNS (Vagus Nerve Stimulation) study, with the device potentially becoming active or increasing in dose by October. Patient and spouse's relationship is reported as doing well and adapting. Plan: - Continue lithium 302 mg capsule PO BID - Continue sertraline 150 mg PO daily - Continue duloxetine 60 mg PO at bedtime - Continue quetiapine ER 150 mg PO daily - Follow up in 3 months - Continue participation in VNS study with next appointment in August, followed by a October appointment when VNS activation status will be confirmed Disclaimer: This note has been transcribed using speech recognition software and serves as a reflection of the patient's visit. While efforts have been made to ensure accuracy, there may be errors, including psychiatric technician inaccuracies and misspellings of medication names. This document should not be considered a verbatim record, and any discrepancies should be verified with the provider. 01/03/2025 Fabiola Lockhart presents with improved mood and resolution of suicidal ideation, but continues to experience sleep disturbances, irritability, and anxiety. Major Depressive Disorder with Anxiety Assessment: Patient reports improvement in depressive symptoms, including resolution of suicidal ideation that was present during a recent episode when his was out of town. Mood has been better, though he still experiences some irritability and anxiety. Patient denies current suicidal ideation but reports guilt feelings related to past behavior during depressive episodes. Sleep disturbances persist, with patient reporting not sleeping at all. No current manic episodes or racing thoughts. Patient has a history of paranoia. Current medication regimen includes quetiapine, Latuda, and lithium. Plan: - Increase quetiapine to 100 mg twice daily for 2 weeks - Patient to monitor for next-day fatigue and tiredness - May reduce to 75 mg if needed, given concurrent Latuda treatment - Continue Latuda 160 mg - Continue lithium 300 mg twice daily - Prescribe quetiapine 2000 mg at bedtime with a 90-day supply - Continue sertraline (last prescribed in July) - Refill duloxetine Insomnia Assessment: Patient reports persistent sleep disturbances, stating he is not sleeping at all. This is identified as a primary concern contributing to other symptoms. Previous treatment with Seroquel (quetiapine ER) 150 mg resulted in excessive daytime sleepiness. Current immediate-relea se formulation of quetiapine at 50 mg has been better tolerated but insufficient for sleep management. Plan: - Increase quetiapine to 100 mg twice daily for 2 weeks - Patient to monitor for improvement in sleep and any side effects - Consider further dose adjustments based on response and tolerability Disclaimer: This note has been transcribed using speech recognition software and serves as a reflection of the patient's visit. While efforts have been made to ensure accuracy, there may be errors, including psychiatric technician inaccuracies and misspellings of medication names. This document should not be considered a verbatim record, and any discrepancies should be verified with the provider. 05/03/2025 Fabiola Lockhart is a patient with depression who recently underwent right knee replacement surgery and is currently off work for one month, reporting stable mood with no depressive or anxiety symptoms. Depression Assessment: Patient reports stable mood with no current depressive symptoms or anxiety over the past month. Depression appears well-controlled on current medication regimen. Patient attributes improved mood partly to having time off work following knee replacement surgery. Plan: - Continue current psychiatric medication regimen including sertraline 100 mg (one and a half tablet), quetiapine 50 mg (2 tablets daily), lithium 300 mg (2 capsules twice daily), lurasidone 80 mg twice daily, and duloxetine 60 mg - Refill lithium and lurasidone prescriptions today as patient is due for refills Post-operative knee replacement management Assessment: Patient underwent right knee replacement surgery and is currently one month post-operative. Initially prescribed Percocet for pain management but experienced significant side effects, prompting medication change to hydrocodone yesterday. Patient has been cleared for physical therapy and is motivated to regain mobility to walk without walker assistance. Plan: - Continue hydrocodone for pain management following switch from Percocet due to side effects - Physical therapy to begin after [place] Follow-up appointment scheduled in 2 months. Staff will call patient to schedule specific appointment time. Plan Of Treatment Next Appt Details Provider Name:Deidra Hernandez, 05/22/2025 09:00:00 AM, [address], [address], [address], Provider Name:Clark Kwong , 07/04/2025 09:45:00 AM, [address], [facility] [address], [place], [address], Insurance Providers Payer Name Payer Address Payer Phone Subscriber Number Group Number Insured Name Patient Relationship to Insured Coverage Start Date Coverage End Date [facility] [address] [place] [address] [id number] KHALIF LOCKHART Self - patient is the insured Medical (General) History Medical History History ICD Code Problems: Bipolar disorder Chronic post-traumatic stress disorder Complaining of erectile dysfunction Functional hypogonadotropic hypogonadism Generalized anxiety disorder Mild depressed bipolar I disorder Obstructive sleep apnea syndrome Primary insomnia Restless legs Unable to concentrate Vitamin D deficiency Bipolar disorder, current episode depres sed, mild Post-traumatic stress disorder Obstructive sleep apnea VNS implant Bipolar disorder Insomnia Mood disorder History of suicidal ideation Surgical History Surgery Date(Month/Year) Removal of gallbladder (63936) Removal of gallbladder (43123) 4 Neurosurgery 04/05/2019 Other 04/06/2019 Removal of gallbladder (97715) Removal of gallbladder (50254) Neurosurgery Other Knee replacement planned for end or early april Removal of gallbladder (36968) Removal of gallbladder (47839) Neurosurgery Other Removal of gallbladder (71871) Removal of gallbladder (97950) Neurosurgery Other Knee replacement planned for end or early april Foot replacement surgery kaykay eduled for april 17, anticipated limited mobility 04/2025 Hospitalization History Reason Date(Month/Year) Hospitalization treatments after [place]
--- OUTSIDE RECORDS SUMMARY | 2025-05-06 16:04 | XMS_ITS | Patient Health Record ---
Author Organization [facility] Address [address] [place], [place] [address] Care Team Providers Care Animal Shelter Worker Name Role Phone Bob Saez Primary Care Provider [phone] Allergies Allergen (clinical drug ingredient) Drug/Non Drug Allergy documented on EMR Reaction Allergy Type Onset Date Status testosterone Testosterone Unknown Drug Allergy A ctive pregabalin Lyrica Unknown Drug Allergy Active Reason For Referral No Information Medications Medication SIG (Take, Route, Frequency, Duration) Notes Start Date End Date Status Pravastatin Sodium 40 MG Tablet 1 tab(s) orally once a day Active Wellbutrin XL 150 MG Tablet Extended Release 24 Hour 1 tab(s) orally every 24 hours Active metFORMIN HCl ER 500 MG Tablet Extended Release 24 Hour 1 tab(s) orally once a day Active Methotrexate 2.5 MG TABLET DIRECTED ORALLY ONCE A WEEK *Please review and pick correct strength-formulati on from [employer] options. If intended option is not shown, discontinue and re-order from Quick Search* Active OZEMPIC 4 MG/3 ML SOLUTION DIRECTED SUBCUTANEOUSLY ONCE A WEEK *Please review for potential replacement for e-prescription and drug interaction check* Active [place] 5 Carbonate 300 MG Capsule 1 cap(s) orally 3 times a day Active Lisinopril 20 MG Tablet 1 tab(s) orally once a day Active Zoloft 100 MG Tablet 1 tab(s) orally once a day Active Problems Problem Type SNOMED Code ICD Code Onset Dates Problem Status W/U Status Risk Notes Problem Manic disorder, single episode (038964432) Manic episode, unspecified (F30.9) Active confirmed Problem Epilepsy, unspecified, intractable, without status epilepticus (G40.919) Active confirmed Plan Of Treatment No Information Medical (General) History Medical History History ICD Code Diabetes Depression Surgical History Surgery Date(Month/Year) gallbladder Meniscus Spinal Fusion
--- OUTSIDE RECORDS SUMMARY | 2025-05-06 16:04 | XMS_ITS | Encounter Summary ---
Author Organization [facility] Address [address] [place] [address] Phone Care Team Providers Care Aviation Mechanic Name Role Phone Renee Trujillo MD Primary Care Provider [phone] Jonnathan Diaz MD Primary Care Provider [phone] Dave Power DO Primary Care Provider [phone] Encounter Details Date Type Department Care Team (Latest Contact Info) Description 12/28/2018 Orders Only [facility] Scanning, Provider Social History Tobacco Use Types Packs/Day Years Used Date Smoking Tobacco: Never Alcohol Use Standard Drinks/Week Comments No 0 (1 standard drink = 0.6 oz pur e alcohol) Sex and Gender Information Value Date Recorded Sex Assigned at Not on file 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 Gender Identity Not on file Sexual Orientation Not on file documented as of this encounter Plan of Treatment Not on file documented as of this encounter Procedures Procedure Name Priority Date/Time Associated Diagnosis Comments SLEEP LAB/STUDY - RESULT 12/28/2018 documented in this encounter Results * SLEEP LAB/STUDY - RESULT (12/28/2018) us Provider Scanning Final Result documented in this encounter Visit Diagnoses Not on filedocumented in this encounter Care Teams Aviation Mechanic Relationship Specialty Start Date End Date Renee Trujillo MD PCP - General Family Medicine 10/02/18 10/04/23 Jonnathan Diaz MD [address] [facility] [address] [place] [address] PCP - General Internal Medicine 10/05/23 08/07/24 Dave Power DO [address] [address] PCP - General Internal Medicine 08/08/24 documented as of this encounter
--- OUTSIDE RECORDS SUMMARY | 2025-05-06 16:04 | XMS_ITS | Clinical Summary ---
Author Organization [facility] Address [address] [place] [address] Care Team Providers Care Nurse Supervisor Name Role Phone Jonnathan Diaz MD Primary Care Provider [phone] Social History Tobacco Use Types Packs/Day Years [...] patient's age to complete this topic Insurance [facility] Care Teams Nurse Supervisor Relationship Specialty Start Date End Date Jonnathan Diaz MD [address] [place] [address] PCP - General INTERNAL MEDICINE 03/03/20
--- OUTSIDE RECORDS SUMMARY | 2025-05-06 16:04 | XMS_ITS | Clinical Summary ---
Author Organization [facility] [employer] Address [address] [place] [address] Care Team Providers Care Cotton Weigher Name Role Phone Dave Power Primary Care Provider [phone] Source Comments [facility],non-owned Affiliates and Associated Physician Practices is amultiple site organization consisting of ambulatory clinics and hospital sitesin [place], [place], [place] and [place]. This disclosure is being madepursuant to the Care Everywhere program and may not contain all information available regarding this patient. Last updated 18.[facility] Allergies Active Allergy Reactions Criticality Noted [...] Department Care Team Description 03/29/2025 Orders Only [facility] - Rheumatology [facility] [place] [address] Giselle Ryan MD Undifferentiated inflammatory arthritis; Encounter for long-term (current) use of high-risk medication; Encounter for therapeutic drug monitoring 02/22/2025 Refill [facility] - [facility]ology [facility] [place] [place] [address] Giselle Ryan MD Refill Request 02/04/2025 3:00 PM CDT Office Visit [facility] - Rheumatology [facility] [place] [address] Giselle Ryan MD Undifferentiated inflammatory arthritis (Primary Dx); Encounter for long-term (current) use of high-risk medication; Encounter for therapeutic drug monitoring 02/04/2025 Travel from Last 3 Months Immunizations Immunization Administration [...] AM CDT Legal Sex Male 7:10 PM PHARMACIST INTERN Gender Identity Male 12/08/2021 9:46 AM CDT [...] Height 182.9 cm (6') 07/04/2023 9:47 AM PHARMACIST INTERN Body Mass Index 35.53 07/04/2023 9:47 AM PHARMACIST INTERN Plan of Treatment Upcoming Encounters Date Type Department Care Team (Late st Contact Info) Description 08/05/2025 2:40 PM CDT Office Visit [facility] - Rheumatology [address] [place] [address] Giselle Ryan MD [address] [place] [address] Health Maintenance Due Date Last Done Comments [...] this topic Medical Devices Implanted Type Area Dredge Captain Device Identifier Shelf Expiration Date Model / Serial / Lot Screw Set Ti Spnl Brk Off Cd Hzn Nonster Implanted:Qty: 8 on 04/05/2019 by Ant Rodriguez MD at [facility] N/A: Back [employer] [id number] / / Screw 6.5mm 45mm Ma Spne Solera Cd Hzn Implanted:Qty: 6 on 04/05/2019 by Ant Rodriguez MD at [facility] N/A: Back [employer] [id number] / / Screw 7.5mm 45mm Ma Spne Solera Cd Hzn Implanted:Qty: 2 on 04/05/2019 by Ant Rodriguez MD at [facility] N/A: Back [employer] [id number] / / Ovi Spnl 120mm 5.5mm Cd Hzn Str Perc Implanted:Qty: 2 on 04/05/2019 by Ant Rodriguez MD at [facility] N/A: Back [employer]or [employer] Spine [id number] / / Procedures Procedure Name Priority Date/Time Associated Diagnosis Comments HEPATITIS C AB W/RFLX TO HCV RNA QN PCR 12/21/2021 11:15 AM CDT from Last 3 Months or Most Recently Relevant to Health Maintenance Results * HEPATITIS C AB W/RFLX TO HCV RNA QN PCR (12/21/2021 11:15 AM CDT) Hepatitis C Antibody NON-REACTI VE NON-REACT RY [facility] Signal to Cut-Off 0.01 <1.00 [facility] Comment: HCV antibody was non-reactive. There is no laboratory evidence of HCV infection. In most cases, no further action is required. However, if recent HCV exposure is suspected, a test for HCV RNA (test code 15395) is suggested. For additional information please refer to http://education.Verdiem/faq/UWV99c8 (This link is being provided for informational/ educational purposes only.) Test Performed at: [facility] [address] [place] [address] DEUCE ROMO DO,MPH 12/21/2021 11:1 5 AM CDT 12/21/2021 11:18 AM CDT us Giselle Ryan MD LAB - CHEMISTRY KASIA CRANE Final Result [facility] [id number] [place] [address] from Last 3 Months or Most Recently Relevant to Health Maintenance Additional Health Concerns Infection Onset Date Last Indicated Prion Disease Rule-Out 07/04/2023 Insurance [facility] [employer] LIABILITY Democrat Liability * Guarantor: KHALIF LOCKHART Account Type Relation to Patient Date of Phone Billing Address Personal/Family 1970 Advance Directives * Full Code (Latest Code Status on File) Date Activated Date Inactivated Comments 05/14/2019 7:44 PM 05/15/2019 7:28 PM * Full Code Date Activated Date Inactivated Comments 04/04/2019 9:30 PM 04/09/2019 2:44 PM Care Teams Cotton Weigher Relationship Specialty Start Date End Date Dave Power DO [address] [place] [address] PCP - General Internal Medicine 05/14/24
--- OUTSIDE RECORDS SUMMARY | 2025-05-06 16:50 | XMS_ITS | Clinical Summary ---
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
--- OUTSIDE RECORDS SUMMARY | 2025-05-06 16:50 | XMS_ITS | Clinical Summary ---
Author Organization [facility] Address [address] [place] [address] Care Team Providers Care Leaf Binner Name Role Phone Jonnathan Diaz MD Primary Care Provider [phone] Social History Tobacco Use Types Packs/Day Years [...] patient's age to complete this topic Insurance [facility] Care Teams Leaf Binner Relationship Specialty Start Date End Date Jonnathan Diaz MD [address] [place] [address] PCP - General INTERNAL MEDICINE 03/03/20
--- OUTSIDE RECORDS SUMMARY | 2025-05-06 16:50 | XMS_ITS | Clinical Summary ---
Author Organization [facility] Address [address] [place] [address] Care Team Providers Care Therapy Administrative Assistant Name Role Phone Dave Power Primary Care Provider [phone] Source Comments [facility],non-owned Affiliates and Associated Physician Practices is amultiple site organization consisting of ambulatory clinics and hospital sitesin [place], [place], [place] and [place]. This disclosure is being madepursuant to the Care Everywhere program and may not contain all information available regarding this patient. Last updated 18.[facility] Allergies Active Allergy Reactions Criticality Noted [...] Department Care Team Description 03/29/2025 Orders Only [facility] - Rheumatology [facility] [address] [address] [place] [address] Giselle Ryan MD Undifferentiated inflammatory arthritis; Encounter for long-term (current) use of high-risk medication; Encounter for therapeutic drug monitoring 02/22/2025 Refill [facility] - Rheumatology [facility] [place] [address] Giselle Ryan MD Refill Request 02/04/2025 3:00 PM CDT Office Visit [facility] - Rheumatology [facility] [place] [address] Giselle Ryan MD Undifferentiated inflammatory arthritis (Primary [...] AM CDT Legal Sex Male 7:10 PM PERCUSSION TUNER Gender Identity Male 12/08/2021 9:46 AM CDT [...] Height 182.9 cm (6') 07/04/2023 9:47 AM PERCUSSION TUNER Body Mass Index 35.53 07/04/2023 9:47 AM PERCUSSION TUNER Plan of Treatment Upcoming Encounters Date Type Department Care Team (Late st Contact Info) Description 08/05/2025 2:40 PM CDT Office Visit [facility] - Rheumatology [address] [place] [address] Giselle Ryan MD [address] [place] [address] Health Maintenance Due Date Last [...] this topic Medical Devices Implanted Type Area Manager Orange Device Identifier Shelf Expiration Date Model / Serial / Lot Screw Set Ti Spnl Brk Off Cd Hzn Nonster Implanted:Qty: 8 on 04/05/2019 by Ant Rodriguez MD at [facility] N/A: Back [employer] [id number] / / Screw 6.5mm 45mm Ma Spne Solera Cd Hzn Implanted:Qty: 6 on 04/05/2019 by Ant Rodriguez MD at [facility] N/A: Back [employer] [id number] / / Screw 7.5mm 45mm Ma Spne Solera Cd Hzn Implanted:Qty: 2 on 04/05/2019 by Ant Rodriguez MD at [facility] N/A: Back [employer] [id number] / / Ovi Spnl 120mm 5.5mm Cd Hzn Str Perc Implanted:Qty: 2 on 04/05/2019 by Ant Rodriguez MD at [facility] N/A: Back [employer] Spine [id number] / / Procedures Procedure Name Priority Date/Time [...] a test for HCV RNA (test code 87282) is suggested. For additional information please refer to http://education.Credit Karma/faq/COJ42u7 (This link is being provided for informational/ educational purposes only.) Test Performed at: [facility] [address] [place] [address] DEUCE ROMO DO,MPH 12/21/2021 11:1 5 AM CDT 12/21/2021 11:18 AM CDT us Giselle Ryan MD LAB - CHEMISTRY KASIA CRANE Final Result [facility] [id number] [place] [address] from Last 3 Months or Most Recently Relevant to Health Maintenance Additional Health Concerns Infection Onset Date Last Indicated Prion Disease Rule-Out 07/04/2023 Insurance [facility] [facility] [employer] LIABILITY Democrat Liability * Guarantor: KHALIF LOCKHART Account Type Relation to Patient Date of Phone Billing Address Personal/Family 1970 Advance Directives * Full Code (Latest Code Status on File) Date Activated Date Inactivated Comments 05/14/2019 7:44 PM 05/15/2019 7:28 PM * Full Code Date Activated Date Inactivated Comments 04/04/2019 9:30 PM 04/09/2019 2:44 PM Care Teams Therapy Administrative Assistant Relationship Specialty Start Date End Date Dave Power DO [address] [place] [address] PCP - General Internal Medicine 05/14/24
--- OUTSIDE RECORDS SUMMARY | 2025-05-06 16:50 | XMS_ITS | Encounter Summary ---
Author Organization [facility] Address [address] [place] [address] Phone Care Team Providers Care Automatic I Threading Machine Feeder Name Role Phone Renee Trujillo MD Primary Care Provider [phone] Jonnathan Diaz MD Primary Care Provider [phone] Dave Power DO Primary Care Provider [phone] Encounter Details Date Type Department Care Team [...] on file Legal Sex Male 12:53 AM LEGAL EXAMINER Gender Identity Not on file Sexual Orientation [...] on filedocumented in this encounter Care Teams Automatic I Threading Machine Feeder Relationship Specialty Start Date End Date Renee Trujillo MD PCP - General Family Medicine 10/02/18 10/04/23 Jonnathan Diaz MD [address] [facility] [address] [place] [address] PCP - General Internal Medicine 10/05/23 08/07/24 Dave Power DO [address] [address] PCP - General Internal Medicine 08/08/24 documented as of this encounter
[2025-05-06] MEDS: SODIUM CHLORIDE 0.9% IV 1,000 ML 150 ML IV CONT (16:54)
[2025-05-06 17:20] LABS: Add Urine Microscopic? YES; Appearance Urine Cloudy (Clear); Glucose Urine UA Negative (Negative); Leukocyte Esterase Ur 2+ LEU/UL (Negative); Need Manual Microscopic Reviewed; Nitrate Urine Negative (Negative); Non Pathogenic Casts >20; Specific Grav Ur 1.014 (1.001-1.035)
--- NOTE | 2025-05-06 18:25 | WPCEDHO ---
ED Hand Off Checklist All vitals saved: yes IV Site documented: yes All med administrations documented: yes Triage Note Triage Note Patient presents with slurred 05/06/25 14:45 speech, tremors, and taste has been off for about 3 weeks. patient thought it was the pain medications that he was taking from his knee replacement but has been off of them since tuesday and symptoms have persisted. this RN agrees with triage assessment Allergies Iodinated Contrast Media Allergy (Unknown, Verified 05/06/25 14:16) Rash on lower ext iodine Allergy (Unknown, Verified 05/06/25 14:16) Rash amoxicillin Adverse Reaction (Unknown, Verified 05/06/25 14:16) Vomiting, DIARRHEA Flu like symptoms pregabalin Adverse Reaction (Unknown, Verified 05/06/25 14:16) Other MOOD CHANGES Family History (Last Reviewed 05/06/25 @ 15:25 by Jorje Walters DO) Mother Hypertension Family history of diabetes mellitus in first degree relative Diabetes mellitus Depression Lupus COVID-19 Father Asthma Family history of emphysema Grandparent Family history of glaucoma Hypertension Family history of cardiovascular disease Cerebrovascular accident Other Family history of alcoholism Family history of arthritis Family history of mental disorder Family history of type 1 diabetes mellitus Active Medications including assessments/comments Sodium Chloride (Normal Saline Iv) 1,000 mls @ 150 mls/hr IV CONT .Q6H40M STA Stop: 05/06/25 21:46 Last Admin: 05/06/25 16:54 Dose: 150 mls/hr Documented By: EDUARDO Infusion/Titration Document 05/06/25 16:54 EDUARDO (Rec: 05/06/25 16:54 EDUARDO [id number]) Intake IV Site Peripheral Access Right Antecubital Container Volume 1,000 Waste Amount 0 Dosing Infusion Rate 150 Cumulative Dose Not Applicable Increase/Decrease Started Elapsed Time Elapsed Time ( 0m minutes) Administered/Completed Medications Discontinued Medications Sodium Chloride (Normal Saline Iv) 1,000 mls @ 999 mls/hr IV CONT .Q1H1M STA Stop: 05/06/25 16:06 Last Infusion: 05/06/25 16:28 Dose: Infused Documented By: Admin: 05/06/25 15:27 Dose: 999 mls/hr Documented By: EDUARDO Sodium Chloride (Normal Saline Iv) 1,000 mls @ 999 mls/hr IV CONT .Q1H1M STA Stop: 05/06/25 16:06 Last Infusion: 05/06/25 16:28 Dose: Infused Documented By: Admin: 05/06/25 15:27 Dose: 999 mls/hr Documented By: EDUARDO Interventions/Assessments Cardiac Monitoring Start: 05/06/25 14:16 Freq: Status: Active Protocol: Document 05/06/25 15:21 KNW (Rec: 05/06/25 15:21 KNW [id number]) Antique Repairer Assessment Antique Repairer Yes Applied Pulse Rate (60-100 88 beats/min) EKG Rythm Sinus Rhythm IV / Saline Lock, Insert Start: 05/06/25 14:32 Freq: STAT Status: Active Protocol: Document 05/06/25 15:22 KNW (Rec: 05/06/25 15:22 KNW [id number]) IV Assessment Peripheral Access Right Antecubital IV Catheter Access Initiated IV Insertion Date 05/06/25 IV Insertion Time 15:22 Catheter Gauge 18 Ultrasound Used for No Placement IV Site Assessment WNL IV Care and WNL Maintenance Last Vital Signs Temperature 98.1 F 05/06/25 14:19 Pulse Rate 82 05/06/25 18:16 Respiratory Rate 29 H 05/06/25 18:16 Pulse Oximetry 100 05/06/25 18:16 Blood Pressure 116/59 L 05/06/25 18:16 Blood Pressure Mean 75 05/06/25 18:16 Blood Pressure Position Supine 05/06/25 15:08 Weight 113.4 kg 05/06/25 14:45 Last Result - Abnormals Only WBC 14.6 K/mm3 (4.5-10.0) H 05/06/25 14:40 RBC 3.90 M/mm3 (4.6-6.20) L 05/06/25 14:40 Hgb 11.4 g/dL (14.0-18.0) L D 05/06/25 14:40 Hct 34.8 % (42.0-52.0) L 05/06/25 14:40 Plt Count 618 k/mm3 (150-375) H D 05/06/25 14:40 Immature Gran % (Auto) 0.6 % (0-0.5) H 05/06/25 14:40 Neut % (Auto) 79.3 % (45.5-73.1) H 05/06/25 14:40 Lymph % (Auto) 9.2 % (18.3-44.2) L 05/06/25 14:40 [place] # (Auto) 1.2 K/mm3 (0.1-0.6) H 05/06/25 14:40 Abs Immat Gran (auto) 0.09 K/mm3 (0.00-0.031) H 05/06/25 14:40 Absolute Neuts (auto) 11.6 K/mm3 (1.3-6.7) H 05/06/25 14:40 Sodium 126 mmol/L (137-145) L 05/06/25 14:40 Carbon Dioxide 14 mmol/L (22-30) L 05/06/25 14:40 Anion Gap 14 mmol/L (4-12) H 05/06/25 14:40 BUN 49 mg/dL (9-20) H D 05/06/25 14:40 Creatinine 3.75 mg/dL (0.7-1.3) H 05/06/25 14:40 Estimated GFR 17 (59-) L 05/06/25 14:40 Alkaline Phosphatase 274 U/L (38-126) H 05/06/25 14:40 Urine Appearance Cloudy (Clear) H 05/06/25 16:56 Urine Protein 1+ mg/dL (Negative) H 05/06/25 16:56 Urine Ketones 1+ mg/dL (Negative) H 05/06/25 16:56 Leukocyte Esterase Rfl 2+ GLORIA/UL (Negative) H 05/06/25 16:56 Urine WBC 51-100 /hpf (0-3) H 05/06/25 16:56 Ur Squamous Epith Cells Many /hpf (Few) H 05/06/25 16:56 Most Recent Suicide Severity Rating Suicide Severity Rating NO RISK INDICATED 05/06/25 14:45
--- NOTE | 2025-05-06 19:29 | ADMGEN ---
This patient, Rashaad Lockhart, was admitted to IMU Room 205-01 cam pproximately 190. Patient/family oriented to hospital policies and general routines including ID bracelet, bed and alarms, visiting hours, pain management, procedures, bathroom and other care routines, personal items, smoking policy, room service/diet, and visiting hours. Information on how to activate the Rapid Response Team has been discussed. Patient/Family are encouraged to report perceived risks to care and to ask questions if they do not understand what they are told or what they should do.
--- NOTE | 2025-05-06 20:10 | ADMGEN ---
This patient, Rashaad Lockhart, was admitted to IMU Room 205-01 at 1900. Patient/family oriented to hospital policies and general routines including ID bracelet, bed and alarms, visiting hours, pain management, procedures, bathroom and other care routines, personal items, smoking policy, room service/diet, and visiting hours. Information on how to activate the Rapid Response Team has been discussed. Patient/Family are encouraged to report perceived risks to care and to ask questions if they do not understand what they are told or what they should do.
--- NOTE | 2025-05-06 23:29 | PM.IMHP2 ---
H&P: HPI History of Present Illness Date/Time: 05/06/25 23:29 Chief Complaint: Slurred speech and tremors Narrative: 54-year-old male with past medical history of vagal nerve stimulator, type 2 diabetes mellitus, essential hypertension, chronic pain due to multiple causes, bipolar disorder and PTSD who presented to the ER with slurred speech and tremors. Patient had reported to the ER the symptoms have been intermittent for the last 3 weeks. The symptoms have been present since he wrist had is right knee replacement 3 weeks ago. He reports that 2 days after his knee replacement he began having trouble speaking. He stated they felt like his words were slurred. He did not have any facial asymmetry or weakness. Initial thought the symptoms were due to his Percocet. He stop taking the Percocet that day but slurred speech has continued. He also developed intermittent twitching of his hands. He also feels like he is in a mental fog. He has had associated decreased appetite. He denies any nausea or vomiting. He has had darker urine but denies any dysuria hematuria or sensation of incomplete bladder emptying. At the time of my evaluation given the patient was denying sensation of incomplete bladder emptying he had some fullness in his abdomen and I suspect did urinary retention. Nursing staff did an initial bladder scan on the patient's arrival to the floor prior to my evaluation. The patient any had 500 mL in his bladder. He was able to urinate about 300 mL. A couple of hours later the patient again voided and nursing staff checked a postvoid residual and patient had 1.1 L in urinary retention. He reports that he actually has not had any pain from his knee replacement since the 1st week following surgery. He states that his knee feels great. He has been feeling lightheaded.. He called his orthopedic surgeon who directed him to come to the ER for further evaluation. On arrival to the ER he was noted to be hypotensive with blood pressures of 90/39. He was afebrile and had a normal heart rate. Chest x-ray demonstrated no acute cardiopulmonary process and noncontrast CT of the head demonstrated no acute intercranial process. EKG was unremarkable and patient was not having any chest pain palpitations or shortness of breath. However labs did demonstrate leukocytosis with a white count of 14.6, a drop in hemoglobin of 4 g from preop hemoglobin on 04/08/2025 of 16 and platelet count was acutely elevated to 618. Electrolyte panel also had significant findings of acute hyponatremia with a sodium of 126 and a low serum bicarb at 14 with evidence of acute kidney injury with BUN of 49 and creatinine of 3.7 with prior baseline creatinine of 0.9-1.2. Urinalysis was significant for greater than 20 casts and 1+ ketones. Review of Systems Review of Systems: 12 systems were reviewed with pertinent positives and negatives per HPI. Except as documented in the HPI, all other systems were reviewed and are negative. [facility] Past Medical History Medical History (Updated 05/07/25 @ 08:15 by Araceli Duncan DO) DISH (diffuse idiopathic skeletal hyperostosis) Ankylosing spondylitis TMJ (temporomandibular joint disorder) Low testosterone SK (seborrheic keratosis) Reflux esophagitis Reactive inflammatory arthritis PTSD (post-traumatic stress disorder) Other obesity due to excess calories Other chronic pain Neuritis of right foot Mixed hyperlipidemia Rheumatoid arthritis Bone cyst Depression Anxiety Generalized osteoarthritis of multiple sites H/O tuberculosis GERD (gastroesophageal reflux disease) Attention deficit disorder Bipolar affective, depress, part remis Essential (primary) hypertension Fibromyalgia Irritable bowel syndrome Mild persistent asthma without complication Obstructive sleep apnea (adult) (pediatric) Polysomnogram 04/2021: Moderate obstructive sleep apnea with recommend auto PAP 5-15 RLS (restless legs syndrome) Type 2 diabetes mellitus without complication, without long-term current use of insulin Surgical History Surgical History (Updated 05/06/25 @ 23:50 by Araceli Duncan DO) Status post total right knee replacement DOS 04/17/25- Dr. Irizarry S/P placement of VNS (vagus nerve stimulation) device H/O spinal fusion Lower thoracic spine History of cholecystectomy S/P cholecystectomy Family History Family History (Updated 05/06/25 @ 23:53 by Araceli Duncan DO) Mother Hypertension Diabetes mellitus Depression Lupus COVID-19 Father Asthma Emphysema of lung Grandparent Hypertension Cerebrovascular accident Glaucoma Other Family history of alcoholism Social History Social History (Updated 05/07/25 @ 08:08 by Araceli Duncan DO) Social History: He lives with his they have been since 1989. They have 4 children. 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 He is a lifelong nonsmoker and he rarely drinks alcohol and only in moderation. He denies illicit substance use. Code status: Full code Surrogate decision maker: Addie () Smoking status: Never smoker Second hand tobacco smoke exposure: No Alcohol intake: current Alcohol use details: Once every 5 months Substance use: never Substance use type: does not use Last use: has norco for recent surgery Lack of Transportation: No Lack of Food: Never True Current Housing: I Have Housing Concerned About Future Housing: No Difficulty Paying Gas/Electric Bills: No Difficulty Paying for Meds: No Currently Unemployed: No Education: Master's Degree or Higher Difficulty w/ Childcare or Family Care: No Living arrangements: with family Additional living arrangements comments: Occupation/Education: occupation 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, [employer] Gender identity (if verbalized by the patient): Male Spiritual care concerns: No Meds Home Medications and Allergies Home Medications ?Medication ?Instructions ?Recorded ?Confirmed ?Type albuterol sulfate 90 mcg/actuation 2 puff inhalation Q4-6H PRN 01/27/23 05/06/25 Rx aerosol inhaler shortness of breath or wheezing #8.5 grams metformin 1,000 mg tablet See Rx Instructions .Route 05/14/24 05/06/25 Rx .COMPLEX #90 tabs lithium carbonate 300 mg capsule 600 mg PO BID 05/15/24 05/06/25 History gabapentin 300 mg capsule See Rx Instructions .Route 07/16/24 05/06/25 Rx .COMPLEX #180 caps lisinopril 20 mg tablet See Rx Instructions .Route 07/16/24 05/06/25 Rx .COMPLEX #90 tabs duloxetine 60 mg capsule,delayed 60 mg PO DAILY 09/20/24 05/06/25 History release (Cymbalta) lurasidone 80 mg tablet (Latuda) 80 mg PO BID 11/20/24 05/06/25 History blood sugar diagnostic (OneTouch #100 ea 01/03/25 05/06/25 Rx Ultra Test strips) blood-glucose meter (OneTouch #1 ea 01/03/25 05/06/25 Rx Ultra2 Meter) lancets 30 gauge (OneTouch #100 ea 01/03/25 05/06/25 Rx UltraSoft 2 Lancet) Testosterone 200 mg topical DAILY 04/08/25 05/06/25 History omeprazole 20 mg capsule,delayed 20 mg PO 3XW 04/08/25 05/06/25 History release sertraline 100 mg tablet 150 mg PO QAM 04/08/25 05/06/25 History tirzepatide 5 mg/0.5 mL 5 mg subcut WEEKLY 04/08/25 05/06/25 History subcutaneous pen injector (Sharron) hydrocodone 5 mg-acetaminophen 325 1 tablet PO Q8H PRN pain #30 tabs 05/02/25 05/06/25 Rx mg tablet Allergies Allergy/AdvReac Type Severity Reaction Status Date / Time Iodinated Contrast Media Allergy Unknown Rash Verified 05/06/25 19:48 iodine Allergy Unknown Rash Verified 05/06/25 19:48 amoxicillin AdvReac Unknown Vomiting, Verified 05/06/25 19:48 DIARRHEA pregabalin AdvReac Unknown Other Verified 05/06/25 19:48 Vital Signs Vital Signs - 24 hr 05/06/25 14:19 05/06/25 15:08 05/06/25 15:09 Temperature 98.1 F Pulse Rate 95 86 87 Respiratory Rate 19 30 H 31 H Blood Pressure 90/39 L 99/56 L 96/56 L Pulse Oximetry 97 95 97 Oxygen Delivery 05/06/25 15:10 05/06/25 15:14 05/06/25 15:21 Temperature Pulse Rate 88 87 88 Respiratory Rate 27 H 29 H Blood Pressure 99/56 L 99/56 L Pulse Oximetry 97 98 Oxygen Delivery 05/06/25 15:27 05/06/25 15:27 05/06/25 15:31 Temperature Pulse Rate 86 86 85 Respiratory Rate 22 H 22 H 28 H Blood Pressure 89/52 L 89/52 L 92/51 L Pulse Oximetry 97 97 96 Oxygen Delivery 05/06/25 15:46 05/06/25 16:25 05/06/25 16:31 Temperature Pulse Rate 83 82 96 Respiratory Rate 28 H 28 H 20 Blood Pressure 101/54 L 102/57 L 106/60 Pulse Oximetry 98 100 99 Oxygen Delivery 05/06/25 17:16 05/06/25 18:16 05/06/25 18:55 Temperature 98 F Pulse Rate 86 82 86 Respiratory Rate 24 H 29 H 16 Blood Pressure 108/57 L 116/59 L 124/95 H Pulse Oximetry 99 100 100 Oxygen Delivery 05/06/25 20:00 05/06/25 20:00 05/06/25 22:00 Temperature Pulse Rate 86 84 85 Respiratory Rate 16 Blood Pressure Pulse Oximetry 100 Oxygen Delivery Room Air Exam Narrative: Weight 99 kg BMI 29.6 Const: Other: No acute distress, well-developed well-nourished, appears stated age HENMT: Other: Good dentition, mucous membranes are dry, no oral pharyngeal erythema, head is normocephalic atraumatic Eyes: Other: Extraocular movements intact, pupils equal and reactive Neck: Other: No JVD, no lymphadenopathy Resp: Other: Clear to auscultation bilaterally, no increased work of breathing Cardio: Other: Regular rate, regular rhythm, 2+ bilateral radial pedal pulses GI: Other: Soft, nontender, normoactive bowel sounds, abdominal fullness in the lower abdomen extending almost to the umbilicus suspicious for bladder distant Skin: Other: No jaundice, no pallor Neuro: Other: Alert oriented x4, speech is slow and slightly slurred, no facial asymmetry, cranial nerves 2-12 grossly intact, patient has normal tone, but has intermittent uncontrolled movements of the hands, sensation is intact Extrem: Other: No clubbing, cyanosis or edema, 5/5 strength bilateral upper and lower extremities. Psych: Other: Pleasant and cooperative, judgment and insight intact, normal mood and affect Results Labs Labs: Laboratory Tests 05/06/25 14:40 05/06/25 14:40 05/06/25 05/06/25 05/06/25 14:36 14:40 15:41 WBC 14.6 H RBC 3.90 L Hgb 11.4 L D Hct 34.8 L MCV 89.2 MCH 29.2 MCHC 32.8 RDW 14.2 Plt Count 618 H D MPV 8.8 Immature Gran % (Auto) 0.6 H Neut % (Auto) 79.3 H Lymph % (Auto) 9.2 L [place] % (Auto) 8.5 Eos % (Auto) 1.8 Baso % (Auto) 0.6 Lymph # (Auto) 1.34 [place] # (Auto) 1.2 H Eos # (Auto) 0.3 Baso # (Auto) 0.1 Abs Immat Gran (auto) 0.09 H Absolute Neuts (auto) 11.6 H Absolute Nucleated RBC 0.000 Nucleated RBC % 0.0 PT 14.6 INR 1.1 APTT 30.2 Sodium 126 L Potassium 4.4 Chloride 98 Carbon Dioxide 14 L Anion Gap 14 H BUN 49 H D Creatinine 3.75 H Estim Creat Clear Calc 27 Estimated GFR 17 L Glucose 99 POC Capillary Glucose 91 Lactic Acid 1.0 Calcium 9.5 Total Bilirubin 0.7 AST 22 ALT 22 Alkaline Phosphatase 274 H Troponin I < 0.012 Total Protein 7.4 Albumin 4.1 Urine Color Urine Appearance Urine pH Ur Specific [place] Urine Protein Urine Glucose (UA) Urine Ketones Ur Blood (Man) Urine Nitrate Urine Bilirubin Urine Urobilinogen Add Ur Microanalysis Leukocyte Esterase Rfl Urine RBC Urine WBC Ur Squamous Epith Cells Urine Bacteria Urine Casts 05/06/25 16:56 WBC RBC Hgb Hct MCV MCH MCHC RDW Plt Count MPV Immature Gran % (Auto) Neut % (Auto) Lymph % (Auto) [place] % (Auto) Eos % (Auto) Baso % (Auto) Lymph # (Auto) [place] # (Auto) Eos # (Auto) Baso # (Auto) Abs Immat Gran (auto) Absolute Neuts (auto) Absolute Nucleated RBC Nucleated RBC % PT INR APTT Sodium Potassium Chloride Carbon Dioxide Anion Gap BUN Creatinine Estim Creat Clear Calc Estimated GFR Glucose POC Capillary Glucose Lactic Acid Calcium Total Bilirubin AST ALT Alkaline Phosphatase Troponin I Total Protein Albumin Urine Color Yellow Urine Appearance Cloudy H Urine pH 5.0 Ur Specific [place] 1.014 Urine Protein 1+ H Urine Glucose (UA) Negative Urine Ketones 1+ H Ur Blood (Man) Non-hemolyzed trace Urine Nitrate Negative Urine Bilirubin Negative Urine Urobilinogen 0.2 Add Ur Microanalysis Reviewed Leukocyte Esterase Rfl 2+ H Urine RBC 0-2 Urine WBC 51-100 H Ur Squamous Epith Cells Many H Urine Bacteria None seen Urine Casts >[address] 05/06/25 15:04 IMPRESSION: 1. No acute intracranial process. Chest X-Ray 05/06/25 15:05 IMPRESSION: 1: NO ACUTE CARDIOPULMONARY DISEASE. Test Date: 2025-05-06 14:37:46 Measurements Intervals [place] Rate: 91 P: 29 SD: 161 QRS: -23 QRSD: 117 T: 30 QT: 388 QTc: 478 Interpretive Statements SINUS RHYTHM INTRAVENTRICULAR CONDUCTION DELAY CONSIDER ANTERIOR INFARCT, AGE INDETERMINATE BASELINE ARTIFACT- I, II, AVR, AVL, AVF, V1-V3 ABNORMAL ECG Compared to ECG 02/07/2025 10:51:02 NO SIGNIFICANT CHANGE Quality VTE Prophylaxis VTE prophylaxis: pharmacologic ordered (Heparin 5000 units subQ q.12 hours) Assessment and Plan Assessment and plan (1) Acute hypotension: Code(s): I95.9 - Hypotension, unspecified Status: Acute (2) Acute renal failure: Qualifiers: Acute renal failure type: unspecified Qualified Code(s): N17.9 - Acute kidney failure, unspecified Code(s): N17.9 - Acute kidney failure, unspecified Status: Acute (3) Knobel toxicity: Qualifiers: Encounter type: initial encounter Injury intent: accidental or unintentional Qualified Code(s): T56.891A - Toxic effect of other metals, accidental (unintentional), initial encounter Code(s): T56.891A - Toxic effect of other metals, accidental (unintentional), initial encounter Status: Acute (4) Acute hyponatremia: Code(s): E87.1 - Hypo-osmolality and hyponatremia Status: Acute (5) Anemia: Qualifiers: Anemia type: unspecified type Qualified Code(s): D64.9 - Anemia, unspecified Code(s): D64.9 - Anemia, unspecified Status: Acute (6) Type 2 diabetes mellitus without complication, without long-term current use of insulin: Code(s): E11.9 - Type 2 diabetes mellitus without complications Status: Acute (7) Obstructive sleep apnea (adult) (pediatric): Code(s): G47.33 - Obstructive sleep apnea (adult) (pediatric) Status: Acute Plan Patient presented the hospital with acute hypotension and was found to be in acute renal failure. Patient's blood pressures normalized after receiving 2 L of IV fluids. Hypotension likely due to volume depletion and use of prescribed antihypertensive medications. Will hold patient's home lisinopril, metformin, GLP 1 and will avoid NSAID therapy. Will monitor I&O's closely. Will repeat electrolyte panel in a.m.. Patient has acute normocytic anemia. This could be secondary to his recent knee replacement procedure. Or could be due to decreased production the setting of acute kidney injury and or other vitamin deficiencies. Will repeat CBC in a.m. and check ferritin, TIBC, B12 and folic acid. Patient does have associated hyponatremia which is likely been due to hyperosmolar hyponatremia which again could is likely due to dehydration but can also be associated with lithium use or toxicity. Knobel was held and lithium level was obtained and was found to be high. Patient was having slurred speech. CVA is less likely. More likely causes for the patient's slurred speech is due to lithium toxicity. Opiate use is not likely a primary cause of slurred speech in his case patient is not opiate naive and has not been receiving opiates for over week. Chronic pain will resume the patient's home duloxetine and gabapentin. Patient does have type 2 diabetes mellitus but is currently euglycemic. As possible patient theoretically could of been having some intermittent hypoglycemia home given acute kidney injury which could of attributed to his fluctuating symptoms as well. Given his acute kidney injury metformin and monitor a will be held as discussed above. Will place patient on low-dose sliding scale insulin with Accu-Cheks a.c. HS. MEDICAL DECISION MAKING NARRATIVE -Spoke with the ED provider in detail regarding patient's evaluation, workup and management -Patient seen and examined at bedside -Collaborated with patient's nurse at the bedside in detail and addressed all concerns -Labs, electrolytes, radiology, investigations and test results personally reviewed and interpreted unless otherwise specified -ED/Consult/Nursing/Ancilliary notes on the chart reviewed and appreciated -applicable past medical records and labs were reviewed and unless stated otherwise. -Spoke with patient at bedside and diagnosis, plan of care was discussed and questions answered. Time Spent with Patient Time with patient: 75 minutes or greater Hospitalist MIPS Advance Care Plan I have confirmed that the patient's Advanced Care Plan is present, code status is documented, or surrogate decision maker is listed in patient medical record.: Yes Medication Reconciliation I have utilized all available resources to obtain, update and review the patients current medications (includes all prescriptions, OTC, herbals, cannabis, and nutritional supplements).: Yes
[2025-05-07] VITALS (13 sets, daily range): BP systolic 109–131; BP diastolic 51–72; PULSE 85–102; RESP 16–28; TEMP 36.5–37.4; O2SAT 95–98; BMI 29.6
[2025-05-07] MEDS: GABAPENTIN 300 MG CAPSULE PO ×3 (00:14→20:17)
[2025-05-07 00:21] LABS: Anion Gap 13 mmol/L (4-12); Blood Urea Nitrogen 44 mg/dL (9-20); Calcium 8.5 mg/dL (8.4-10.2); Carbon Dioxide 10 mmol/L (22-30); Chloride 106 mmol/L (98-107); Estimated CRCL calculation 33 ml/min; Estimated Glomerular Filt Rate 26; Glucose 80 mg/dL (65-110); Lithium 3.3 mmol/L (0.6-1.2); Potassium 4.2 mmol/L (3.4-5.0); Sodium 129 mmol/L (137-145)
[2025-05-07] MEDS: SODIUM CHLORIDE 0.9% IV 1,000 ML 125 ML IV CONT ×3 (02:26→20:16)
[2025-05-07 04:56] LABS: Anion Gap 14 mmol/L (4-12); Blood Urea Nitrogen 41 mg/dL (9-20); Calcium 8.9 mg/dL (8.4-10.2); Carbon Dioxide 12 mmol/L (22-30); Chloride 106 mmol/L (98-107); Estimated CRCL calculation 38 ml/min; Estimated Glomerular Filt Rate 31; Glucose 76 mg/dL (65-110); Potassium 4.2 mmol/L (3.4-5.0); Sodium 132 mmol/L (137-145)
[2025-05-07] MEDS: SERTRALINE HCL 50 MG TABLET 150 MG PO (08:18)
[2025-05-07] MEDS: DULoxetine HCL 60 MG CAPSULE.DR PO (08:18)
[2025-05-07 08:28] LABS: Hematocrit 30.6 % (42.0-52.0); Hemoglobin 9.9 g/dL (14.0-18.0); Mean Corpuscular HGB Conc 32.4 g/dl (32-36); Mean Corpuscular Hemoglobin 29.7 pg (26-34); Mean Corpuscular Volume 91.9 fl (80-100); Platelet Count Result 528 k/mm3 (150-375); Red Blood Count 3.33 M/mm3 (4.6-6.20); White Blood Count 10.0 K/mm3 (4.5-10.0)
[2025-05-07] MEDS: LURASIDONE HCL 40 MG TABLET 80 MG PO (08:39)
--- NOTE | 2025-05-07 08:52 | P.PNOP_ITS ---
Progress Note: A&P Assessment and Plan (1) Acute renal failure: Qualifiers: Acute renal failure type: unspecified Qualified Code(s): N17.9 - Acute kidney failure, unspecified Code(s): N17.9 - Acute kidney failure, unspecified Status: Acute Assessment and Plan: ALINE on admission. Creatinine with slight improvment today. (2) Acute hyponatremia: Code(s): E87.1 - Hypo-osmolality and hyponatremia Status: Acute (3) Anemia: Qualifiers: Anemia type: unspecified type Qualified Code(s): D64.9 - Anemia, unspecified Code(s): D64.9 - Anemia, unspecified Status: Acute (4) [place] toxicity: Qualifiers: Encounter type: initial encounter Injury intent: accidental or unintentional Qualified Code(s): T56.891A - Toxic effect of other metals, accidental (unintentional), initial encounter Code(s): T56.891A - Toxic effect of other metals, accidental (unintentional), initial encounter Status: Acute Assessment and Plan: [place] Level 3.3 on admission. (5) S/P knee replacement: Qualifiers: Laterality: right Qualified Code(s): Z96.651 - Presence of right artificial knee joint Code(s): Z96.659 - Presence of unspecified artificial knee joint Status: Acute Assessment and Plan: 2 weeks, 6 days s/p right TKA admitted in the setting of hyponatremia, lithium toxicity and ALINE. Patient denies pain of the right knee. Mild swelling. Limited ROM. Would benefit from PT/OT with TKA protocol. WBAT with walker for fall precautions given current medical condition. Subjective Subjective Date/Time Seen: 05/07/25 08:52 Interval history: 2 weeks, 6 days s/p right TKA. Patient contacted our office yesterday with concerns of fatigue, weakness, slurred speech, decreased appetite and a metal taste in his mouth. He was immediately directed to the ED for further evaluation. He was found to have a ALINE, Hyponatremia and [place] Toxicity of 3.3. He was also noted to have urinary retention. He was admitted for further treatment and monitoring. Review of Systems Review of Systems: All systems reviewed & are unremarkable except as noted in HPI and below Exam Const: General: comfortable and no acute distress Resp: Effort & Inspection: normal respiratory effort : Other: Burch catheter in place- urinary retention noted upon admission. Skin: General skin exam: normal color Extrem: Right lower extremity: knee Details: swelling (mild, no notable effusion ), abnormal ROM (limited due to recent surgical intervention. ) and other (Incision well approximated. No signs of infection. ); no tenderness, no l acerations, no ecchymosis and no crepitus Psych: Mental Status: mental status grossly normal Other: Slurred speech, slight improvement noted in comparison to yesterday via telephone. Objective Data Vital Signs Vital Signs: Vital Signs - 24 hr 05/06/25 14:19 05/06/25 15:08 05/06/25 15:09 Temperature 36.7 C Pulse Rate 95 86 87 Respiratory Rate 19 30 H 31 H Blood Pressure 90/39 L 99/56 L 96/56 L Pulse Oximetry 97 95 97 Oxygen Delivery 05/06/25 15:10 05/06/25 15:14 05/06/25 15:21 Temperature Pulse Rate 88 87 88 Respiratory Rate 27 H 29 H Blood Pressure 99/56 L 99/56 L Pulse Oximetry 97 98 Oxygen Delivery 05/06/25 15:27 05/06/25 15:27 05/06/25 15:31 Temperature Pulse Rate 86 86 85 Respiratory Rate 22 H 22 H 28 H Blood Pressure 89/52 L 89/52 L 92/51 L Pulse Oximetry 97 97 96 Oxygen Delivery 05/06/25 15:46 05/06/25 16:25 05/06/25 16:31 Temperature Pulse Rate 83 82 96 Respiratory Rate 28 H 28 H 20 Blood Pressure 101/54 L 102/57 L 106/60 Pulse Oximetry 98 100 99 Oxygen Delivery 05/06/25 17:16 05/06/25 18:16 05/06/25 18:55 Temperature 36.6 C Pulse Rate 86 82 86 Respiratory Rate 24 H 29 H 16 Blood Pressure 108/57 L 116/59 L 124/95 H Pulse Oximetry 99 100 100 Oxygen Delivery 05/06/25 20:00 05/06/25 20:00 05/06/25 22:00 Temperature Pulse Rate 86 84 85 Respiratory Rate 16 Blood Pressure Pulse Oximetry 100 Oxygen Delivery Room Air 05/06/25 22:00 05/07/25 00:00 05/07/25 00:00 Temperature Pulse Rate 88 86 Respiratory Rate 20 Blood Pressure Pulse Oximetry 97 Oxygen Delivery Autopap Room Air 05/07/25 00:00 05/07/25 02:00 05/07/25 04:00 Temperature 36.8 C Pulse Rate 88 102 H 87 Respiratory Rate 16 20 Blood Pressure 109/51 L Pulse Oximetry 98 96 Oxygen Delivery Room Air 05/07/25 04:00 05/07/25 04:00 05/07/25 06:00 Temperature 37.4 C Pulse Rate 85 87 87 Respiratory Rate 17 Blood Pressure 131/59 L Pulse Oximetry 96 Oxygen Delivery Intake/Output Intake/Output: Intake & Output 05/04/25 05/05/25 05/06/25 05/07/25 23:59 23:59 23:59 23:59 Intake Total 1999 999 Output Total 1800 Balance 1999 - Meds/Results Medications: Active Medications Generic Name Dose Route Start Last Admin Trade Name Freq PRN Reason Stop Dose Admin Acetaminophen 650 mg 05/06/25 23:56 Acetaminophen 325 Mg Tablet PO Q4H PRN Pain 1-6 Or Fever Hydrocodone Bitart/Acetaminophen 1 tab 05/06/25 23:55 Hydrocodone/Acetaminophen (*Crx) 5-325 Mg Tablet PO Q8H PRN pain 7-10 Albuterol 2 puff 05/06/25 23:53 Albuterol Sulfate (*Sp) Aerosol 1 Puff INHALATION Q4-6H PRN Shortness Of Breath Or Wheezing Calcium Carbonate 200 mg 05/06/25 23:56 Calcium Carbonate (Tums) 500 Mg (200 Mg Elemental) PO Q6H PRN Indigestion Dextrose 12.5 gm 05/06/25 23:58 Dextrose 50% 25 Gm/50 Ml Syringe IV PUSH PRN PRN Hypoglycemia Protocol Docusate Sodium 100 mg 05/06/25 23:56 Docusate Sodium 100 Mg Capsule PO Q12H PRN Constipation Duloxetine HCl 60 mg 05/07/25 09:00 05/07/25 08:18 Duloxetine Hcl 60 Mg Capsule.Dr PO 60 mg DAILY REVA Administration Gabapentin 300 mg 05/06/25 23:55 05/07/25 08:18 Gabapentin 300 Mg Capsule PO 300 mg Q12HR REVA Administration Glucagon 1 mg 05/06/25 23:58 Glucagon For Inj 1 Mg Vial IM PRN PRN Hypoglycemia Protocol Glucose 15 gm 05/06/25 23:58 Glucose Oral Gel 15 Gm Of Glucse In 37.5 Gm Tube PO PRN PRN Hypoglycemia Protocol Heparin Sodium (Porcine) 5,000 units 05/07/25 09:00 05/07/25 08:19 Heparin Sodium 5,000 Units/Ml Vial SUB-Q 5,000 units Q12HR REVA Administration Dextrose 1,000 mls @ 100 mls/hr 05/06/25 23:58 Dextrose 5% 1,000 Ml IVPB PRN PRN Hypoglycemia Protocol Sodium Chloride 1,000 mls @ 125 mls/hr 05/07/25 02:15 05/07/25 02:26 Normal Saline Iv IV CONT 125 mls/hr .Q8H REVA Administration Insulin Aspart 2 - 5 units 05/07/25 08:00 Insulin Aspart (*Bkc) 100 Units/Ml SUB-Q TIDWM REVA Protocol Lurasidone HCl 80 mg 05/07/25 08:00 05/07/25 08:39 Lurasidone Hcl 40 Mg Tablet PO 80 mg BIDWM REVA Administration Miscellaneous Information 0 each 05/07/25 00:05 05/07/25 01:32 Testosterone Cream- Nonformulary. Hold While Inpatient? XX 06/06/25 00:04 Not Given CLARIFY REVA Non-Formulary Medication 200 mg 05/07/25 09:00 Testosterone TOPICAL 06/06/25 08:59 DAILY REVA Ondansetron HCl 4 mg 05/06/25 23:56 Ondansetron Inj 4 Mg/2 Ml Vial IV PUSH Q6H PRN Nausea And Vomiting Pantoprazole Sodium 40 mg 05/08/25 09:00 Pantoprazole 40 Mg Tablet PO [id number] REVA Sertraline HCl 150 mg 05/07/25 09:00 05/07/25 08:18 Sertraline Hcl 50 Mg Tablet PO 150 mg QAM REVA Administration Radiology Results: ITS Impressions Head CT 05/06/25 15:04 IMPRESSION: 1. No acute intracranial process. Chest X-Ray 05/06/25 15:05 IMPRESSION: 1: NO ACUTE CARDIOPULMONARY DISEASE. Labs Labs: Laboratory Results - last 24 hr 05/06/25 05/06/25 05/06/25 14:36 14:40 15:41 WBC 14.6 H RBC 3.90 L Hgb 11.4 L D Hct 34.8 L MCV 89.2 MCH 29.2 MCHC 32.8 RDW 14.2 Plt Count 618 H D MPV 8.8 Immature Gran % (Auto) 0.6 H Neut % (Auto) 79.3 H Lymph % (Auto) 9.2 L [place] % (Auto) 8.5 Eos % (Auto) 1.8 Baso % (Auto) 0.6 Lymph # (Auto) 1.34 [place] # (Auto) 1.2 H Eos # (Auto) 0.3 Baso # (Auto) 0.1 Abs Immat Gran (auto) 0.09 H Absolute Neuts (auto) 11.6 H Absolute Nucleated RBC 0.000 Nucleated RBC % 0.0 PT 14.6 INR 1.1 APTT 30.2 Sodium 126 L Potassium 4.4 Chloride 98 Carbon Dioxide 14 L Anion Gap 14 H BUN 49 H D Creatinine 3.75 H Estim Creat Clear Calc 27 Estimated GFR 17 L Glucose 99 POC Capillary Glucose 91 Lactic Acid 1.0 Calcium 9.5 Total Bilirubin 0.7 AST 22 ALT 22 Alkaline Phosphatase 274 H Troponin I < 0.012 Total Protein 7.4 Albumin 4.1 Urine Color Urine Appearance Urine pH Ur Specific [place] Urine Protein Urine Glucose (UA) Urine Ketones Ur Blood (Man) Urine Nitrate Urine Bilirubin Urine Urobilinogen Add Ur Microanalysis Leukocyte Esterase Rfl Urine RBC Urine WBC Ur Squamous Epith Cells Urine Bacteria Urine Casts [place] 05/06/25 05/06/25 05/07/25 16:56 23:57 03:55 WBC 10.0 RBC 3.33 L Hgb 9.9 L Hct 30.6 L MCV 91.9 MCH 29.7 MCHC 32.4 RDW 14.4 Plt Count 528 H MPV 9.3 Immature Gran % (Auto) Neut % (Auto) Lymph % (Auto) [place] % (Auto) Eos % (Auto) Baso % (Auto) Lymph # (Auto) [place] # (Auto) Eos # (Auto) Baso # (Auto) Abs Immat Gran (auto) Absolute Neuts (auto) Absolute Nucleated RBC Nucleated RBC % PT INR APTT Sodium 129 L 132 L Potassium 4.2 4.2 Chloride 106 106 Carbon Dioxide 10 L 12 L Anion Gap 13 H 14 H BUN 44 H 41 H Creatinine 2.58 H 2.24 H Estim Creat Clear Calc 33 38 Estimated GFR 26 L 31 L Glucose 80 76 POC Capillary Glucose Lactic Acid Calcium 8.5 8.9 Total Bilirubin AST ALT Alkaline Phosphatase Troponin I Total Protein Albumin Urine Color Yellow Urine Appearance Cloudy H Urine pH 5.0 Ur Specific [place] 1.014 Urine Protein 1+ H Urine Glucose (UA) Negative Urine Ketones 1+ H Ur Blood (Man) Non-hemolyzed trace Urine Nitrate Negative Urine Bilirubin Negative Urine Urobilinogen 0.2 Add Ur Microanalysis Reviewed Leukocyte Esterase Rfl 2+ H Urine RBC 0-2 Urine WBC 51-100 H Ur Squamous Epith Cells Many H Urine Bacteria None seen Urine Casts >20 [place] 3.3 H* 05/07/25 07:30 WBC RBC Hgb Hct MCV MCH MCHC RDW Plt Count MPV Immature Gran % (Auto) Neut % (Auto) Lymph % (Auto) [place] % (Auto) Eos % (Auto) Baso % (Auto) Lymph # (Auto) [place] # (Auto) Eos # (Auto) Baso # (Auto) Abs Immat Gran (auto) Absolute Neuts (auto) Absolute Nucleated RBC Nucleated RBC % PT INR APTT Sodium Potassium Chloride Carbon Dioxide Anion Gap BUN Creatinine Estim Creat Clear Calc Estimated GFR Glucose POC Capillary Glucose 93 Lactic Acid Calcium Total Bilirubin AST ALT Alkaline Phosphatase Troponin I Total Protein Albumin Urine Color Urine Appearance Urine pH Ur Specific [place] Urine Protein Urine Glucose (UA) Urine Ketones Ur Blood (Man) Urine Nitrate Urine Bilirubin Urine Urobilinogen Add Ur Microanalysis Leukocyte Esterase Rfl Urine RBC Urine WBC Ur Squamous Epith Cells Urine Bacteria Urine Casts [place]
--- NOTE | 2025-05-07 11:19 | PM.IMPN2 ---
Assessment and Plan Assessment and Plan (1) Acute hypotension: Code(s): I95.9 - Hypotension, unspecified Status: Acute (2) Acute renal failure: Qualifiers: Acute renal failure type: unspecified Qualified Code(s): N17.9 - Acute kidney failure, unspecified Code(s): N17.9 - Acute kidney failure, unspecified Status: Acute (3) [place] toxicity: Qualifiers: Encounter type: initial encounter Injury intent: accidental or unintentional Qualified Code(s): T56.891A - Toxic effect of other metals, accidental (unintentional), initial encounter Code(s): T56.891A - Toxic effect of other metals, accidental (unintentional), initial encounter Status: Acute (4) Acute hyponatremia: Code(s): E87.1 - Hypo-osmolality and hyponatremia Status: Acute (5) Anemia: Qualifiers: Anemia type: unspecified type Qualified Code(s): D64.9 - Anemia, unspecified Code(s): D64.9 - Anemia, unspecified Status: Acute (6) Type 2 diabetes mellitus without complication, without long-term current use of insulin: Code(s): E11.9 - Type 2 diabetes mellitus without complications Status: Acute (7) Obstructive sleep apnea (adult) (pediatric): Code(s): G47.33 - Obstructive sleep apnea (adult) (pediatric) Status: Acute (8) UTI (urinary tract infection): Code(s): N39.0 - Urinary tract infection, site not specified Status: Acute Plan Patient presented the hospital with acute hypotension and was found to be in acute renal failure. Patient's blood pressures normalized after receiving 2 L of IV fluids. Hypotension likely due to volume depletion and use of prescribed antihypertensive medications. Will hold patient's home lisinopril, metformin, GLP 1 and will avoid NSAID therapy. Will monitor I&O's closely. Will repeat electrolyte panel in a.m.. Patient has acute normocytic anemia. This could be secondary to his recent knee replacement procedure. Or could be due to decreased production the setting of acute kidney injury and or other vitamin deficiencies. Will repeat CBC in a.m. and check ferritin, TIBC, B12 and folic acid. Patient does have associated hyponatremia which is likely been due to hyperosmolar hyponatremia which again could is likely due to dehydration but can also be associated with lithium use or toxicity. [place] was held and lithium level was obtained and was found to be high. Patient was having slurred speech. CVA is less likely. More likely causes for the patient's slurred speech is due to lithium toxicity. Opiate use is not likely a primary cause of slurred speech in his case patient is not opiate naive and has not been receiving opiates for over week. Chronic pain will resume the patient's home duloxetine and gabapentin. Patient does have type 2 diabetes mellitus but is currently euglycemic. As possible patient theoretically could of been having some intermittent hypoglycemia home given acute kidney injury which could of attributed to his fluctuating symptoms as well. Given his acute kidney injury metformin and monitor a will be held as discussed above. Will place patient on low-dose sliding scale insulin with Accu-Cheks a.c. HS. Start IV antibiotics for possible UTI. Subjective Date/time seen: 05/07/25 11:19 Interval history: Patient was seen during the morning rounds today. Patient is slightly awake. Shortness of breath or chest pain. Review of Systems Review of Systems: 12 systems were reviewed with pertinent positives and negatives per HPI. Except as documented in the HPI, all other systems were reviewed and are negative. Exam Narrative: Weight 99 kg BMI 29.6 Const: Other: No acute distress, well-developed well-nourished, appears stated age HENMT: Other: Good dentition, mucous membranes are dry, no oral pharyngeal erythema, head is normocephalic atraumatic Eyes: Other: Extraocular movements intact, pupils equal and reactive Neck: Other: No JVD, no lymphadenopathy Resp: Other: Clear to auscultation bilaterally, no increased work of breathing Cardio: Other: Regular rate, regular rhythm, 2+ bilateral radial pedal pulses GI: Other: Soft, nontender, normoactive bowel sounds, abdominal fullness in the lower abdomen extending almost to the umbilicus suspicious for bladder distant Skin: Other: No jaundice, no pallor Neuro: Other: Alert oriented x4, speech is slow and slightly slurred, no facial asymmetry, cranial nerves 2-12 grossly intact, patient has normal tone, but has intermittent uncontrolled movements of the hands, sensation is intact Extrem: Other: No clubbing, cyanosis or edema, 5/5 strength bilateral upper and lower extremities. Psych: Other: Pleasant and cooperative, judgment and insight intact, normal mood and affect Objective Data Vital Signs Vital Signs: Vital Signs - 24 hr 05/06/25 14:19 05/06/25 15:08 05/06/25 15:09 Temperature 36.7 C Pulse Rate 95 86 87 Respiratory Rate 19 30 H 31 H Blood Pressure 90/39 L 99/56 L 96/56 L Pulse Oximetry 97 95 97 Oxygen Delivery 05/06/25 15:10 05/06/25 15:14 05/06/25 15:21 Temperature Pulse Rate 88 87 88 Respiratory Rate 27 H 29 H Blood Pressure 99/56 L 99/56 L Pulse Oximetry 97 98 Oxygen Delivery 05/06/25 15:27 05/06/25 15:27 05/06/25 15:31 Temperature Pulse Rate 86 86 85 Respiratory Rate 22 H 22 H 28 H Blood Pressure 89/52 L 89/52 L 92/51 L Pulse Oximetry 97 97 96 Oxygen Delivery 05/06/25 15:46 05/06/25 16:25 05/06/25 16:31 Temperature Pulse Rate 83 82 96 Respiratory Rate 28 H 28 H 20 Blood Pressure 101/54 L 102/57 L 106/60 Pulse Oximetry 98 100 99 Oxygen Delivery 05/06/25 17:16 05/06/25 18:16 05/06/25 18:55 Temperature 36.6 C Pulse Rate 86 82 86 Respiratory Rate 24 H 29 H 16 Blood Pressure 108/57 L 116/59 L 124/95 H Pulse Oximetry 99 100 100 Oxygen Delivery 05/06/25 20:00 05/06/25 20:00 05/06/25 22:00 Temperature Pulse Rate 86 84 85 Respiratory Rate 16 Blood Pressure Pulse Oximetry 100 Oxygen Delivery Room Air 05/06/25 22:00 05/07/25 00:00 05/07/25 00:00 Temperature Pulse Rate 88 86 Respiratory Rate 20 Blood Pressure Pulse Oximetry 97 Oxygen Delivery Autopap Room Air 05/07/25 00:00 05/07/25 02:00 05/07/25 04:00 Temperature 36.8 C Pulse Rate 88 102 H 87 Respiratory Rate 16 20 Blood Pressure 109/51 L Pulse Oximetry 98 96 Oxygen Delivery Room Air 05/07/25 04:00 05/07/25 04:00 05/07/25 06:00 Temperature 37.4 C Pulse Rate 85 87 87 Respiratory Rate 17 Blood Pressure 131/59 L Pulse Oximetry 96 Oxygen Delivery 05/07/25 08:00 05/07/25 08:00 05/07/25 10:46 Temperature 36.9 C Pulse Rate 89 Respiratory Rate 24 H Blood Pressure 112/68 Pulse Oximetry 97 Oxygen Delivery Room Air Room Air Intake/Output Intake/Output: Intake & Output 05/04/25 05/05/25 05/06/25 05/07/25 23:59 23:59 23:59 23:59 Intake Total 1999 2119 Output Total 1799 Balance 1999 320 Meds/Results Medications: Active Medications Generic Name Dose Route Start Last Admin Trade Name Freq PRN Reason Stop Dose Admin Acetaminophen 650 mg 05/06/25 23:56 Acetaminophen 325 Mg Tablet PO Q4H PRN Pain 1-6 Or Fever Hydrocodone Bitart/Acetaminophen 1 tab 05/06/25 23:55 Hydrocodone/Acetaminophen (*Crx) 5-325 Mg Tablet PO Q8H PRN pain 7-10 Albuterol 2 puff 05/06/25 23:53 Albuterol Sulfate (*Sp) Aerosol 1 Puff INHALATION Q4-6H PRN Shortness Of Breath Or Wheezing Calcium Carbonate 200 mg 05/06/25 23:56 Calcium Carbonate (Tums) 500 Mg (200 Mg Elemental) PO Q6H PRN Indigestion Dextrose 12.5 gm 05/06/25 23:58 Dextrose 50% 25 Gm/50 Ml Syringe IV PUSH PRN PRN Hypoglycemia Protocol Docusate Sodium 100 mg 05/06/25 23:56 Docusate Sodium 100 Mg Capsule PO Q12H PRN Constipation Duloxetine HCl 60 mg 05/07/25 09:00 05/07/25 08:18 Duloxetine Hcl 60 Mg Capsule.Dr PO 60 mg DAILY REVA Administration Gabapentin 300 mg 05/06/25 23:55 05/07/25 08:18 Gabapentin 300 Mg Capsule PO 300 mg Q12HR REVA Administration Glucagon 1 mg 05/06/25 23:58 Glucagon For Inj 1 Mg Vial IM PRN PRN Hypoglycemia Protocol Glucose 15 gm 05/06/25 23:58 Glucose Oral Gel 15 Gm Of Glucse In 37.5 Gm Tube PO PRN PRN Hypoglycemia Protocol Heparin Sodium (Porcine) 5,000 units 05/07/25 09:00 05/07/25 08:19 Heparin Sodium 5,000 Units/Ml Vial SUB-Q 5,000 units Q12HR REVA Administration Dextrose 1,000 mls @ 100 mls/hr 05/06/25 23:58 Dextrose 5% 1,000 Ml IVPB PRN PRN Hypoglycemia Protocol Sodium Chloride 1,000 mls @ 125 mls/hr 05/07/25 02:15 05/07/25 11:10 Normal Saline Iv IV CONT 125 mls/hr .Q8H REVA Administration Levofloxacin/Dextrose 500 mg in 100 mls @ 100 mls/hr 05/07/25 11:20 Levaquin 500 Mg/D5w 100 Ml IVPB Q24H REVA Insulin Aspart 2 - 5 units 05/07/25 08:00 05/07/25 10:23 Insulin Aspart (*Bkc) 100 Units/Ml SUB-Q Not Given TIDWM [facility] Protocol Lurasidone HCl 80 mg 05/07/25 08:00 05/07/25 08:39 Lurasidone Hcl 40 Mg Tablet PO 80 mg BIDWM [facility] Administration Miscellaneous Information 0 each 05/07/25 00:05 05/07/25 01:32 Testosterone Cream- Nonformulary. Hold While Inpatient? XX 06/06/25 00:04 Not Given CLARIFY [facility] Non-Formulary Medication 200 mg 05/07/25 09:00 Testosterone TOPICAL 06/06/25 08:59 DAILY [facility] Ondansetron HCl 4 mg 05/06/25 23:56 Ondansetron Inj 4 Mg/2 Ml Vial IV PUSH Q6H PRN Nausea And Vomiting Pantoprazole Sodium 40 mg 05/08/25 09:00 Pantoprazole 40 Mg Tablet PO [id number] [facility] Sertraline HCl 150 mg 05/07/25 09:00 05/07/25 08:18 Sertraline Hcl 50 Mg Tablet PO 150 mg QAM REVA Administration Radiology Results: ITS Impressions Head CT 05/06/25 15:04 IMPRESSION: 1. No acute intracranial process. Chest X-Ray 05/06/25 15:05 IMPRESSION: 1: NO ACUTE CARDIOPULMONARY DISEASE. Labs Labs: Laboratory Results - last 24 hr 05/06/25 05/06/25 05/06/25 14:36 14:40 15:41 WBC 14.6 H RBC 3.90 L Hgb 11.4 L D Hct 34.8 L MCV 89.2 MCH 29.2 MCHC 32.8 RDW 14.2 Plt Count 618 H D MPV 8.8 Immature Gran % (Auto) 0.6 H Neut % (Auto) 79.3 H Lymph % (Auto) 9.2 L [place] % (Auto) 8.5 Eos % (Auto) 1.8 Baso % (Auto) 0.6 Lymph # (Auto) 1.34 [place] # (Auto) 1.2 H Eos # (Auto) 0.3 Baso # (Auto) 0.1 Abs Immat Gran (auto) 0.09 H Absolute Neuts (auto) 11.6 H Absolute Nucleated RBC 0.000 Nucleated RBC % 0.0 PT 14.6 INR 1.1 APTT 30.2 Sodium 126 L Potassium 4.4 Chloride 98 Carbon Dioxide 14 L Anion Gap 14 H BUN 49 H D Creatinine 3.75 H Estim Creat Clear Calc 27 Estimated GFR 17 L Glucose 99 POC Capillary Glucose 91 Lactic Acid 1.0 Calcium 9.5 Total Bilirubin 0.7 AST 22 ALT 22 Alkaline Phosphatase 274 H Troponin I < 0.012 Total Protein 7.4 Albumin 4.1 Urine Color Urine Appearance Urine pH Ur Specific [place] Urine Protein Urine Glucose (UA) Urine Ketones Ur Blood (Man) Urine Nitrate Urine Bilirubin Urine Urobilinogen Add Ur Microanalysis Leukocyte Esterase Rfl Urine RBC Urine WBC Ur Squamous Epith Cells Urine Bacteria Urine Casts [place] 05/06/25 05/06/25 05/07/25 16:56 23:57 03:55 WBC 10.0 RBC 3.33 L Hgb 9.9 L Hct 30.6 L MCV 91.9 MCH 29.7 MCHC 32.4 RDW 14.4 Plt Count 528 H MPV 9.3 Immature Gran % (Auto) Neut % (Auto) Lymph % (Auto) [place] % (Auto) Eos % (Auto) Baso % (Auto) Lymph # (Auto) [place] # (Auto) Eos # (Auto) Baso # (Auto) Abs Immat Gran (auto) Absolute Neuts (auto) Absolute Nucleated RBC Nucleated RBC % PT INR APTT Sodium 129 L 132 L Potassium 4.2 4.2 Chloride 106 106 Carbon Dioxide 10 L 12 L Anion Gap 13 H 14 H BUN 44 H 41 H Creatinine 2.58 H 2.24 H Estim Creat Clear Calc 33 38 Estimated GFR 26 L 31 L Glucose 80 76 POC Capillary Glucose Lactic Acid Calcium 8.5 8.9 Total Bilirubin AST ALT Alkaline Phosphatase Troponin I Total Protein Albumin Urine Color Yellow Urine Appearance Cloudy H Urine pH 5.0 Ur Specific [place] 1.014 Urine Protein 1+ H Urine Glucose (UA) Negative Urine Ketones 1+ H Ur Blood (Man) Non-hemolyzed trace Urine Nitrate Negative Urine Bilirubin Negative Urine Urobilinogen 0.2 Add Ur Microanalysis Reviewed Leukocyte Esterase Rfl 2+ H Urine RBC 0-2 Urine WBC 51-100 H Ur Squamous Epith Cells Many H Urine Bacteria None seen Urine Casts >20 [place] 3.3 H* 05/07/25 07:30 WBC RBC Hgb Hct MCV MCH MCHC RDW Plt Count MPV Immature Gran % (Auto) Neut % (Auto) Lymph % (Auto) [place] % (Auto) Eos % (Auto) Baso % (Auto) Lymph # (Auto) [place] # (Auto) Eos # (Auto) Baso # (Auto) Abs Immat Gran (auto) Absolute Neuts (auto) Absolute Nucleated RBC Nucleated RBC % PT INR APTT Sodium Potassium Chloride Carbon Dioxide Anion Gap BUN Creatinine Estim Creat Clear Calc Estimated GFR Glucose POC Capillary Glucose 93 Lactic Acid Calcium Total Bilirubin AST ALT Alkaline Phosphatase Troponin I Total Protein Albumin Urine Color Urine Appearance Urine pH Ur Specific [place] Urine Protein Urine Glucose (UA) Urine Ketones Ur Blood (Man) Urine Nitrate Urine Bilirubin Urine Urobilinogen Add Ur Microanalysis Leukocyte Esterase Rfl Urine RBC Urine WBC Ur Squamous Epith Cells Urine Bacteria Urine Casts [place] Quality VTE Prophylaxis VTE prophylaxis: pharmacologic ordered (Heparin 5000 units subQ q.12 hours)
[2025-05-07] MEDS: levoFLOXacin 500 MG/D5W 100 ML 500 MG/100 ML BAG 100 MG IVPB (12:11)
--- NOTE | 2025-05-07 16:19 | PC.NURSE ---
PT has had no loose BM today, notified DR Manning and received order to cancel cdiff order. Order read back and verified.
--- NOTE | 2025-05-07 22:00 | PC.NURSE ---
Report given to DARRELL Duran.
[2025-05-08] VITALS (13 sets, daily range): BP systolic 111–141; BP diastolic 57–77; PULSE 82–100; RESP 20–28; TEMP 36.4–37.2; O2SAT 96–100
[2025-05-08] MEDS: SODIUM CHLORIDE 0.9% IV 1,000 ML 125 ML IV CONT ×2 (04:04→16:30)
[2025-05-08 04:32] LABS: Hematocrit 29.8 % (42.0-52.0); Hemoglobin 9.5 g/dL (14.0-18.0); Mean Corpuscular HGB Conc 31.9 g/dl (32-36); Mean Corpuscular Hemoglobin 29.0 pg (26-34); Mean Corpuscular Volume 90.9 fl (80-100); Platelet Count Result 432 k/mm3 (150-375); Red Blood Count 3.28 M/mm3 (4.6-6.20); White Blood Count 7.7 K/mm3 (4.5-10.0)
[2025-05-08 05:01] LABS: Lithium 2.1 mmol/L (0.6-1.2)
[2025-05-08 05:05] LABS: Alanine Aminotransferase 15 U/L (6-50); Albumin Level 3.3 g/dL (3.5-5.1); Alkaline Phosphatase 258 U/L (38-126); Anion Gap 9 mmol/L (4-12); Aspartate Amino Transferase 20 U/L (17-59); Bilirubin,Total 0.6 mg/dL (0.2-1.3); Blood Urea Nitrogen 19 mg/dL (9-20); Calcium 9.3 mg/dL (8.4-10.2); Carbon Dioxide 14 mmol/L (22-30); Chloride 110 mmol/L (98-107); Estimated CRCL calculation 81 ml/min; Estimated Glomerular Filt Rate > 60; Glucose 117 mg/dL (65-110); Potassium 4.1 mmol/L (3.4-5.0); Sodium 133 mmol/L (137-145); Total Protein 6.3 g/dL (6.3-8.2)
--- NOTE | 2025-05-08 08:46 | PM.IMPN2 ---
Assessment and Plan Assessment and Plan (1) Acute hypotension: Code(s): I95.9 - Hypotension, unspecified Status: Acute (2) Acute renal failure: Qualifiers: Acute renal failure type: unspecified Qualified Code(s): N17.9 - Acute kidney failure, unspecified Code(s): N17.9 - Acute kidney failure, unspecified Status: Acute (3) [place] toxicity: Qualifiers: Encounter type: initial encounter Injury intent: accidental or unintentional Qualified Code(s): T56.891A - Toxic effect of other metals, accidental (unintentional), initial encounter Code(s): T56.891A - Toxic effect of other metals, accidental (unintentional), initial encounter Status: Acute (4) Acute hyponatremia: Code(s): E87.1 - Hypo-osmolality and hyponatremia Status: Acute (5) Anemia: Qualifiers: Anemia type: unspecified type Qualified Code(s): D64.9 - Anemia, unspecified Code(s): D64.9 - Anemia, unspecified Status: Acute (6) Type 2 diabetes mellitus without complication, without long-term current use of insulin: Code(s): E11.9 - Type 2 diabetes mellitus without complications Status: Acute (7) Obstructive sleep apnea (adult) (pediatric): Code(s): G47.33 - Obstructive sleep apnea (adult) (pediatric) Status: Acute (8) UTI (urinary tract infection): Code(s): N39.0 - Urinary tract infection, site not specified Status: Acute Plan Patient presented the hospital with acute hypotension and was found to be in acute renal failure. Patient's blood pressures normalized after receiving 2 L of IV fluids. Hypotension likely due to volume depletion and use of prescribed antihypertensive medications. Will hold patient's home lisinopril, metformin, GLP 1 and will avoid NSAID therapy. Will monitor I&O's closely. Will repeat electrolyte panel in a.m.. Patient has acute normocytic anemia. This could be secondary to his recent knee replacement procedure. Or could be due to decreased production the setting of acute kidney injury and or other vitamin deficiencies. Will repeat CBC in a.m. and check ferritin, TIBC, B12 and folic acid. Patient does have associated hyponatremia which is likely been due to hyperosmolar hyponatremia which again could is likely due to dehydration but can also be associated with lithium use or toxicity. [place] was held and lithium level was obtained and was found to be high. Patient was having slurred speech. CVA is less likely. More likely causes for the patient's slurred speech is due to lithium toxicity. Opiate use is not likely a primary cause of slurred speech in his case patient is not opiate naive and has not been receiving opiates for over week. Chronic pain will resume the patient's home duloxetine and gabapentin. Patient does have type 2 diabetes mellitus but is currently euglycemic. As possible patient theoretically could of been having some intermittent hypoglycemia home given acute kidney injury which could of attributed to his fluctuating symptoms as well. Given his acute kidney injury metformin and monitor a will be held as discussed above. Will place patient on low-dose sliding scale insulin with Accu-Cheks a.c. HS. Start IV antibiotics for possible UTI. 05/08/2025 Patient's lithium level is 2.1 now. Slightly abnormal. Will continue to hold. Patient is more awake now. Patient urine culture pending. Plan is to continue current treatment. Increase activity as tolerated. Monitor lithium level. Possible discharge in the morning. Subjective Date/time seen: 05/08/25 08:46 Interval history: Patient was seen during the morning rounds today. More alert. No new overnight complaints Patient is slightly awake. Shortness of breath or chest pain. Review of Systems Review of Systems: 12 systems were reviewed with pertinent positives and negatives per HPI. Except as documented in the HPI, all other systems were reviewed and are negative. Exam Narrative: Weight 99 kg BMI 29.6 Const: Other: No acute distress, well-developed well-nourished, appears stated age HENMT: Other: Good dentition, mucous membranes are dry, no oral pharyngeal erythema, head is normocephalic atraumatic Eyes: Other: Extraocular movements intact, pupils equal and reactive Neck: Other: No JVD, no lymphadenopathy Resp: Other: Clear to auscultation bilaterally, no increased work of breathing Cardio: Other: Regular rate, regular rhythm, 2+ bilateral radial pedal pulses GI: Other: Soft, nontender, normoactive bowel sounds, abdominal fullness in the lower abdomen extending almost to the umbilicus suspicious for bladder distant Skin: Other: No jaundice, no pallor Neuro: Other: Alert oriented x4, speech is slow and slightly slurred, no facial asymmetry, cranial nerves 2-12 grossly intact, patient has normal tone, but has intermittent uncontrolled movements of the hands, sensation is intact Extrem: Other: No clubbing, cyanosis or edema, 5/5 strength bilateral upper and lower extremities. Psych: Other: Pleasant and cooperative, judgment and insight intact, normal mood and affect Objective Data Vital Signs Vital Signs: Vital Signs - 24 hr 05/07/25 10:46 05/07/25 11:15 05/07/25 11:57 Temperature 36.5 C Pulse Rate 94 97 Respiratory Rate 28 H Blood Pressure 121/58 L Pulse Oximetry 96 Oxygen Delivery Room Air 05/07/25 12:00 05/07/25 12:00 05/07/25 12:42 Temperature Pulse Rate 95 Respiratory Rate Blood Pressure Pulse Oximetry Oxygen Delivery Room Air Room Air 05/07/25 14:00 05/07/25 16:00 05/07/25 16:00 Temperature 36.7 C Pulse Rate 95 93 94 Respiratory Rate 20 Blood Pressure 114/61 Pulse Oximetry 96 Oxygen Delivery 05/07/25 16:21 05/07/25 17:58 05/07/25 20:00 Temperature 36.5 C Pulse Rate 91 92 Respiratory Rate 20 Blood Pressure 124/72 Pulse Oximetry 97 Oxygen Delivery Room Air 05/07/25 20:00 05/07/25 20:00 05/07/25 21:13 Temperature Pulse Rate 92 96 Respiratory Rate Blood Pressure Pulse Oximetry 95 Oxygen Delivery Room Air Autopap 05/08/25 00:00 05/08/25 00:00 05/08/25 00:00 Temperature 36.4 C Pulse Rate 96 94 Respiratory Rate 20 Blood Pressure 137/72 Pulse Oximetry 98 Oxygen Delivery CPAP 05/08/25 01:40 05/08/25 02:00 05/08/25 04:00 Temperature 37.2 C Pulse Rate 82 92 92 Respiratory Rate 20 Blood Pressure 120/70 Pulse Oximetry 96 98 Oxygen Delivery Autopap 05/08/25 04:00 05/08/25 04:00 05/08/25 06:00 Temperature Pulse Rate 92 90 Respiratory Rate Blood Pressure Pulse Oximetry Oxygen Delivery CPAP Intake/Output Intake/Output: Intake & Output 05/05/25 05/06/25 05/07/25 05/08/25 23:59 23:59 23:59 23:59 Intake Total 1999 3820 975 Output Total 3950 1200 Balance 1999 130 -049 Meds/Results Medications: Active Medications Generic Name Dose Route Start Last Admin Trade Name Freq PRN Reason Stop Dose Admin Acetaminophen 650 mg 05/06/25 23:56 Acetaminophen 325 Mg Tablet PO Q4H PRN Pain 1-6 Or Fever Hydrocodone Bitart/Acetaminophen 1 tab 05/06/25 23:55 Hydrocodone/Acetaminophen (*Crx) 5-325 Mg Tablet PO Q8H PRN pain 7-10 Albuterol 2 puff 05/06/25 23:53 Albuterol Sulfate (*Sp) Aerosol 1 Puff INHALATION Q4-6H PRN Shortness Of Breath Or Wheezing Calcium Carbonate 200 mg 05/06/25 23:56 Calcium Carbonate (Tums) 500 Mg (200 Mg Elemental) PO Q6H PRN Indigestion Dextrose 12.5 gm 05/06/25 23:58 Dextrose 50% 25 Gm/50 Ml Syringe IV PUSH PRN PRN Hypoglycemia Protocol Docusate Sodium 100 mg 05/06/25 23:56 Docusate Sodium 100 Mg Capsule PO Q12H PRN Constipation Duloxetine HCl 60 mg 05/07/25 09:00 05/07/25 08:18 Duloxetine Hcl 60 Mg Capsule.Dr PO 60 mg DAILY REVA Administration Gabapentin 300 mg 05/06/25 23:55 05/07/25 20:17 Gabapentin 300 Mg Capsule PO 300 mg Q12HR REVA Administration Glucagon 1 mg 05/06/25 23:58 Glucagon For Inj 1 Mg Vial IM PRN PRN Hypoglycemia Protocol Glucose 15 gm 05/06/25 23:58 Glucose Oral Gel 15 Gm Of Glucse In 37.5 Gm Tube PO PRN PRN Hypoglycemia Protocol Heparin Sodium (Porcine) 5,000 units 05/07/25 14:00 05/08/25 05:58 Heparin Sodium 5,000 Units/Ml Vial SUB-Q 5,000 units Q8HR REVA Administration Dextrose 1,000 mls @ 100 mls/hr 05/06/25 23:58 Dextrose 5% 1,000 Ml IVPB PRN PRN Hypoglycemia Protocol Sodium Chloride 1,000 mls @ 125 mls/hr 05/07/25 02:15 05/08/25 04:04 Normal Saline Iv IV CONT 125 mls/hr .Q8H REVA Administration Levofloxacin/Dextrose 250 mg in 50 mls @ 50 mls/hr 05/08/25 12:00 Levaquin 250 Mg/D5w 50 Ml IVPB Q24H [facility] Insulin Aspart 2 - 5 units 05/07/25 08:00 05/07/25 17:40 Insulin Aspart (*Bkc) 100 Units/Ml SUB-Q Not Given TIDWM [facility] Protocol Lurasidone HCl 80 mg 05/07/25 08:00 05/07/25 20:16 Lurasidone Hcl 40 Mg Tablet PO Not Given BIDWM [facility] Miscellaneous Information 0 each 05/07/25 00:05 05/07/25 01:32 Testosterone Cream- Nonformulary. Hold While Inpatient? XX 06/06/25 00:04 Not Given CLARIFY [facility] Non-Formulary Medication 200 mg 05/07/25 09:00 Testosterone TOPICAL 06/06/25 08:59 DAILY [facility] Pantoprazole Sodium 40 mg 05/08/25 09:00 Pantoprazole 40 Mg Tablet PO [id number] [facility] Sertraline HCl 150 mg 05/07/25 09:00 05/07/25 08:18 Sertraline Hcl 50 Mg Tablet PO 150 mg QAM [facility] Administration Radiology Results: ITS Impressions Head CT 05/06/25 15:04 IMPRESSION: 1. No acute intracranial process. Chest X-Ray 05/06/25 15:05 IMPRESSION: 1: NO ACUTE CARDIOPULMONARY DISEASE. Venous Doppler Study 05/07/25 12:52 IMPRESSION: 1. No deep venous thrombosis in either lower limb. Labs Labs: Laboratory Results - last 24 hr 05/07/25 05/07/25 05/07/25 11:26 15:25 20:02 WBC RBC Hgb Hct MCV MCH MCHC RDW Plt Count MPV Sodium Potassium Chloride Carbon Dioxide Anion Gap BUN Creatinine Estim Creat Clear Calc Estimated GFR Glucose POC Capillary Glucose 106 H 137 H 129 H Calcium Total Bilirubin AST ALT Alkaline Phosphatase Total Protein Albumin [place] 05/08/25 05/08/25 04:01 07:45 WBC 7.7 RBC 3.28 L Hgb 9.5 L Hct 29.8 L MCV 90.9 MCH 29.0 MCHC 31.9 L RDW 14.4 Plt Count 432 H MPV 9.0 Sodium 133 L Potassium 4.1 Chloride 110 H Carbon Dioxide 14 L Anion Gap 9 BUN 19 D Creatinine 1.03 Estim Creat Clear Calc 81 Estimated GFR > 60 Glucose 117 H POC Capillary Glucose 158 H Calcium 9.3 Total Bilirubin 0.6 AST 20 ALT 15 Alkaline Phosphatase 258 H Total Protein 6.3 Albumin 3.3 L [place] 2.1 H* Quality VTE Prophylaxis VTE prophylaxis: pharmacologic ordered (Heparin 5000 units subQ q.12 hours)
[2025-05-08] MEDS: LURASIDONE HCL 40 MG TABLET 80 MG PO ×2 (08:50→17:18)
[2025-05-08] MEDS: DULoxetine HCL 60 MG CAPSULE.DR PO (08:50)
[2025-05-08] MEDS: SERTRALINE HCL 50 MG TABLET 150 MG PO (08:50)
[2025-05-08] MEDS: PANTOPRAZOLE 40 MG TABLET PO (08:50)
[2025-05-08] MEDS: GABAPENTIN 300 MG CAPSULE PO ×2 (08:50→22:07)
[2025-05-08] MEDS: levoFLOXacin 250 MG/D5W 50 ML 250 MG/50 ML BAG 50 MG IVPB (12:59)
[2025-05-09] MEDS: SODIUM CHLORIDE 0.9% IV 1,000 ML 125 ML IV CONT ×2 (00:35→08:17)
[2025-05-09 03:24] VITALS: PULSE 88; O2SAT 95
[2025-05-09 04:59] LABS: Lithium 1.3 mmol/L (0.6-1.2)
[2025-05-09 08:00] VITALS: BP 122/60; PULSE 88; RESP 16; TEMP 36.6; O2SAT 99
[2025-05-09] MEDS: LURASIDONE HCL 40 MG TABLET 80 MG PO (08:18)
[2025-05-09] MEDS: SERTRALINE HCL 50 MG TABLET 150 MG PO (08:18)
[2025-05-09] MEDS: DULoxetine HCL 60 MG CAPSULE.DR PO (08:18)
[2025-05-09] MEDS: GABAPENTIN 300 MG CAPSULE PO (08:18)
--- NOTE | 2025-05-09 08:20 | PM.DS ---
DS: Admitting Diagnosis Discharge Date 05/09/2025 Admitting Diagnosis Acute hypertension DS: Discharge Diagnosis Discharge Diagnosis (1) Acute hypotension: Code(s): I95.9 - Hypotension, unspecified Status: Acute (2) Acute renal failure: Qualifiers: Acute renal failure type: unspecified Qualified Code(s): N17.9 - Acute kidney failure, unspecified Code(s): N17.9 - Acute kidney failure, unspecified Status: Acute (3) [place] toxicity: Qualifiers: Encounter type: initial encounter Injury intent: accidental or unintentional Qualified Code(s): T56.891A - Toxic effect of other metals, accidental (unintentional), initial encounter Code(s): T56.891A - Toxic effect of other metals, accidental (unintentional), initial encounter Status: Acute (4) Acute hyponatremia: Code(s): E87.1 - Hypo-osmolality and hyponatremia Status: Acute (5) Anemia: Qualifiers: Anemia type: unspecified type Qualified Code(s): D64.9 - Anemia, unspecified Code(s): D64.9 - Anemia, unspecified Status: Acute (6) Type 2 diabetes mellitus without complication, without long-term current use of insulin: Code(s): E11.9 - Type 2 diabetes mellitus without complications Status: Acute (7) Obstructive sleep apnea (adult) (pediatric): Code(s): G47.33 - Obstructive sleep apnea (adult) (pediatric) Status: Acute (8) UTI (urinary tract infection): Code(s): N39.0 - Urinary tract infection, site not specified Status: Acute Plan Patient presented the hospital with acute hypotension and was found to be in acute renal failure. Patient's blood pressures normalized after receiving 2 L of IV fluids. Hypotension likely due to volume depletion and use of prescribed antihypertensive medications. Will hold patient's home lisinopril, metformin, GLP 1 and will avoid NSAID therapy. Will monitor I&O's closely. Will repeat electrolyte panel in a.m.. Patient has acute normocytic anemia. This could be secondary to his recent knee replacement procedure. Or could be due to decreased production the setting of acute kidney injury and or other vitamin deficiencies. Will repeat CBC in a.m. and check ferritin, TIBC, B12 and folic acid. Patient does have associated hyponatremia which is likely been due to hyperosmolar hyponatremia which again could is likely due to dehydration but can also be associated with lithium use or toxicity. [place] was held and lithium level was obtained and was found to be high. Patient was having slurred speech. CVA is less likely. More likely causes for the patient's slurred speech is due to lithium toxicity. Opiate use is not likely a primary cause of slurred speech in his case patient is not opiate naive and has not been receiving opiates for over week. Chronic pain will resume the patient's home duloxetine and gabapentin. Patient does have type 2 diabetes mellitus but is currently euglycemic. As possible patient theoretically could of been having some intermittent hypoglycemia home given acute kidney injury which could of attributed to his fluctuating symptoms as well. Given his acute kidney injury metformin and monitor a will be held as discussed above. Will place patient on low-dose sliding scale insulin with Accu-Cheks a.c. HS. Start IV antibiotics for possible UTI. 05/08/2025 Patient's lithium level is 2.1 now. Slightly abnormal. Will continue to hold. Patient is more awake now. Patient urine culture pending. Plan is to continue current treatment. Increase activity as tolerated. Monitor lithium level. Possible discharge in the morning. DS: Summary Hospital Course Reason for hospitalization: Acute hypotension Hospital Course: 54 years old male was admitted for low blood pressure. Patient was found to have urinary tract infection lithium toxicity. Patient was given IV antibiotics and culture was done. Urine cultures and blood cultures are negative. Patient did not level came back to almost normal. Today patient is better and is discharged home in stable condition. Follow-up with Psychiatry scheduled. Patient advised not to take lithium until seen by a psychiatrist. Status at Discharge Cognitive/behavioral status at discharge: Stable Time Spent with Patient Time attestation: Total time spent providing and/or coordinating discharge services: 30 minutes Exam Narrative: Weight 99 kg BMI 29.6 Const: Other: No acute distress, well-developed well-nourished, appears stated age HENMT: Other: Good dentition, mucous membranes are dry, no oral pharyngeal erythema, head is normocephalic atraumatic Eyes: Other: Extraocular movements intact, pupils equal and reactive Neck: Other: No JVD, no lymphadenopathy Resp: Other: Clear to auscultation bilaterally, no increased work of breathing Cardio: Other: Regular rate, regular rhythm, 2+ bilateral radial pedal pulses GI: Other: Soft, nontender, normoactive bowel sounds, abdominal fullness in the lower abdomen extending almost to the umbilicus suspicious for bladder distant Skin: Other: No jaundice, no pallor Neuro: Other: Alert oriented x4, speech is slow and slightly slurred, no facial asymmetry, cranial nerves 2-12 grossly intact, patient has normal tone, but has intermittent uncontrolled movements of the hands, sensation is intact Extrem: Other: No clubbing, cyanosis or edema, 5/5 strength bilateral upper and lower extremities. Psych: Other: Pleasant and cooperative, judgment and insight intact, normal mood and affect DS: Data Data Completed and Pending Labs on day of discharge: Labs from last 24 hours 05/09/25 05/09/25 05/08/25 07:45 04:00 23:22 POC Capillary Glucose 139 H 112 H [place] 1.3 H* 05/08/25 05/08/25 15:50 12:26 POC Capillary Glucose 127 H 131 H [place] Preliminary micro results at discharge 05/06/25 16:00 Blood Culture - Preliminary Blood 05/06/25 15:41 Blood Culture - Preliminary Blood Discharge Plan Discharge Attending physician on discharge: John Manning Consulting providers: Lalo Irizarry Discharging Clinician: John Manning Patient Disposition: Home Activity: as tolerated Diet: as tolerated Patient Instructions: Antibiotic Form, Heparin (By injection) Patient Language: Indonesian Stand Alone Forms: General Discharge Information Follow-up/Referrals: Fredis Branch APRN [Advanced Practice Nurse, Psychiatry] Dave Power DO [Primary Care Provider, Internal Medicine] Discharge Medications: New levofloxacin 250 mg tablet 250 mg PO DAILY Qty: 5 0RF Continued duloxetine [Cymbalta] 60 mg capsule,delayed release(DR/EC) 60 mg PO DAILY Patient Comments: HS lurasidone [Latuda] 80 mg tablet 80 mg PO BID Rx Instructions: must administer with food (at least 350 calories) omeprazole 20 mg capsule,delayed release(DR/EC) 20 mg PO 3XW Mounjaro 5 mg/0.5 mL pen injector 5 mg SUBCUT WEEKLY Patient Comments: SUNDAYS Testosterone 200 mg topical DAILY Patient Comments: 2 CLICK TOPICAL DAILY Rx Instructions: 2 CLICKS TOPICAL TO SCROTUM DAILY; albuterol sulfate 90 mcg/actuation HFA aerosol inhaler 2 puff INHALATION Q4-6H PRN (Reason: shortness of breath or wheezing) Qty: 8.5 0RF metformin 1,000 mg tablet See Rx Instructions .ROUTE .COMPLEX Qty: 90 3RF Dose Instruction: TAKE 1 TABLET DAILY Patient Comments: HS Rx Instructions: TAKE 1 TABLET DAILY lisinopril 20 mg tablet See Rx Instructions .ROUTE .COMPLEX Qty: 90 3RF Dose Instruction: TAKE 1 TABLET DAILY Patient Comments: QAM Rx Instructions: TAKE 1 TABLET DAILY gabapentin 300 mg capsule See Rx Instructions .ROUTE .COMPLEX Qty: 180 3RF Dose Instruction: TAKE 1 CAPSULE TWICE A DAY Rx Instructions: TAKE 1 CAPSULE TWICE A DAY (DME) blood-glucose meter [OneTouch Ultra2 Meter] Misc See Rx Instructions .Route Qty: 1 1RF Rx Instructions: As directed (DME) OneTouch Ultra Test Strip See Rx Instructions .Route Qty: 100 2RF Rx Instructions: As directed; daily (DME) lancets [OneTouch UltraSoft 2 Lancet] 30 gauge misc See Rx Instructions .Route Qty: 100 2RF Rx Instructions: As directed daily Held lithium carbonate 300 mg capsule 600 mg PO BID Hold Instructions: Hold until seen by psych Discontinued hydrocodone-acetaminophen 5-325 mg tablet 1 tablet PO Q8H PRN (Reason: pain) Qty: 30 0RF No Action sertraline 100 mg tablet 150 mg PO QAM Date of admission: 05/06/25 17:11 Primary Care Provider: Dave Power Admitting Provider: German Paulson Attending physician on admission: German Paulson Condition: Stable Quality VTE Prophylaxis VTE prophylaxis: pharmacologic ordered (Heparin 5000 units subQ q.12 hours)
--- NOTE | 2025-05-09 08:48 | PC.NURSE ---
Discharge orders put in by MD. Medications finalized. Pharmacy location confirmed with patient. Diacharge packet printed and reviewed with patient and at bedside. All questions answered. IV and corado removed.
== END 2025-05-09 08:56 | disposition home or self-care (01) | DRG 917 ==
LOC: ANHED 15:14 → ANHIMU 20:03
PROVIDERS: Emergency Medicine; Internal Medicine; Admitting Provider Internal Medicine; Emergency Provider Student in an Organized Health Care Education/Training Program; PCP Internal Medicine; Visit Provider Internal Medicine
DX: T43.592A Poisoning by other antipsychotics and neuroleptics, intentional self-harm, initial encounter (principal); E11.00 Type 2 diabetes mellitus with hyperosmolarity without nonketotic hyperglycemic-hyperosmolar coma (NKHHC); N17.9 Acute kidney failure, unspecified; E87.1 Hypo-osmolality and hyponatremia; R47.81 Slurred speech; T46.5X5A Adverse effect of other antihypertensive drugs, initial encounter; G47.33 Obstructive sleep apnea (adult) (pediatric); I95.2 Hypotension due to drugs; I95.89 Other hypotension; E86.9 Volume depletion, unspecified; E86.0 Dehydration; D64.9 Anemia, unspecified; M06.9 Rheumatoid arthritis, unspecified; F43.10 Post-traumatic stress disorder, unspecified; E78.2 Mixed hyperlipidemia; M15.9 Polyosteoarthritis, unspecified; R33.9 Retention of urine, unspecified; K21.9 Gastro-esophageal reflux disease without esophagitis; J45.30 Mild persistent asthma, uncomplicated; G25.81 Restless legs syndrome; Z96.651 Presence of right artificial knee joint; Z98.1 Arthrodesis status; Z90.49 Acquired absence of other specified parts of digestive tract
CPT/HCPCS: 36415; 70450; 71045; 80048; 80053; 80178; 81001; 82948; 83605; 84484; 85025; 85027; 85610; 85730; 87040; 87086; 93005; 93970; 96360; 97110; 97162; 97166; 99285; A9270; J1644; J1956; J7030